=== PATIENT | female | born 1950 | race Two or more races ===

== ENCOUNTER → 2019-12-25 | Outpatient (CLI) | payer BC ==
[2019-12-25 14:48] LABS: Basophils # (auto) 0 uL; Basophils % (auto) 0.3 % (0.0-2.0); Eosinophils # (auto) 0.2 uL; Eosinophils % (auto) 1.4 % (0.0-7.0); Hematocrit 42.4 % (36.0-46.0); Hemoglobin 13.7 g/dL (12.2-16.2); Lymphocytes # (auto) 6.8 uL; Lymphocytes % (auto) 49.4 % (10.0-50.0); Mean Corpuscular Hemoglobin 28.8 pg (28.0-32.0); Mean Corpuscular Hgb Conc. 32.4 g/dL (32.0-36.0); Mean Corpuscular Volume 88.8 fL (80.0-100.0); Monocytes # (auto) 0.8 uL; Neutrophils # (auto) 5.9 uL; Neutrophils % (auto) 42.9 % (37.0-80.0); Nucleated Red Blood Cells % 0.1 %; Platelet Count (auto) 298 10^3/uL (140-450); Red Blood Cells 4.77 10^6/uL (4.0-5.20); White Blood Cell 13.8 10^3/uL (4.4-10.8)
[2019-12-25 15:14] LABS: Albumin 3.4 g/dL (3.4-5.0); Calcium 9.4 mg/dL (8.5-10.1); Potassium 3.6 mmol/L (3.5-5.1)
[2019-12-25 15:19] LABS: BUN/Creatinine Ratio 17.6; Bilirubin, Total 0.4 mg/dL (0.2-1.0); CRP High Sensitivity 0.44 mg/dL (< 0.3); Total Protein 7.6 g/dL (6.4-8.2)
[2019-12-25 15:23] LABS: Free T4 (Free Thyroxine) 1.13 ng/dL (0.89-1.76)
[2019-12-25 15:24] LABS: T3 Total 0.97 ng/mL (0.60-1.81)
== END | disposition home or self-care (01) ==
LOC: LAB 14:32
PROVIDERS: ATTEND Physician Assistant
DX: N92.1 Excessive and frequent menstruation with irregular cycle (principal); I10 Essential (primary) hypertension; E03.9 Hypothyroidism, unspecified; M79.7 Fibromyalgia; R73.9 Hyperglycemia, unspecified; R63.5 Abnormal weight gain
CPT/HCPCS: 36415; 80053; 80061; 84439; 84443; 84480; 85025; 86141; 86431

== ENCOUNTER → 2021-05-14 | Outpatient (CLI) | payer BC ==
[2021-05-14 16:13] LABS: Basophils # (auto) 0.1 10 ^3/uL (0-0.2); Basophils % (auto) 0.7 % (0.0-2.0); Eosinophils # (auto) 0.3 10 ^3/uL (0-0.8); Eosinophils % (auto) 1.6 % (0.0-7.0); Hematocrit 41.6 % (36.0-46.0); Hemoglobin 14.1 g/dL (12.2-16.2); Lymphocytes # (auto) 8.9 10 ^3/uL (0.4-5.4); Lymphocytes % (auto) 52.6 % (10.0-50.0); Mean Corpuscular Hemoglobin 29.7 pg (28.0-32.0); Mean Corpuscular Volume 87.4 fL (80.0-100.0); Monocytes # (auto) 0.6 10 ^3/uL (0-1.3); Monocytes % (auto) 3.8 % (0.0-12.0); Neutrophils % (auto) 41.3 % (37.0-80.0); Platelet Count (auto) 359 10^3/uL (140-450); Red Blood Cells 4.76 10^6/uL (4.0-5.20); Red Cell Distribution Width 14.1 % (11.8-14.3)
[2021-05-14 16:27] LABS: Albumin 3.4 g/dL (3.4-5.0); Calcium 9.6 mg/dL (8.5-10.1); Potassium 3.8 mmol/L (3.5-5.1)
[2021-05-14 16:32] LABS: Bilirubin, Total 0.4 mg/dL (0.2-1.0); Total Protein 7.6 g/dL (6.4-8.2)
[2021-05-14 16:38] LABS: BUN/Creatinine Ratio 15.2
== END | disposition home or self-care (01) ==
LOC: LAB 15:58
PROVIDERS: ATTEND Nurse Practitioner Family
DX: I10 Essential (primary) hypertension (principal); E66.01 Morbid (severe) obesity due to excess calories; E03.9 Hypothyroidism, unspecified
CPT/HCPCS: 36415; 80053; 80061; 84443; 85025; 85049

== ENCOUNTER → 2022-04-13 | Outpatient (CLI) | payer BC ==
[2022-04-13 15:24] LABS: Basophils # (auto) 0.2 10 ^3/uL (0-0.2); Basophils % (auto) 1.5 % (0.0-2.0); Eosinophils # (auto) 0.1 10 ^3/uL (0-0.8); Eosinophils % (auto) 0.8 % (0.0-7.0); Hematocrit 42.2 % (36.0-46.0); Hemoglobin 14.2 g/dL (12.2-16.2); Lymphocytes % (auto) 49.5 % (10.0-50.0); Mean Corpuscular Hemoglobin 29.9 pg (28.0-32.0); Mean Corpuscular Hgb Conc. 33.5 g/dL (32.0-36.0); Monocytes # (auto) 0.8 10 ^3/uL (0-1.3); Neutrophils % (auto) 43.2 % (37.0-80.0); Red Blood Cells 4.74 10^6/uL (4.0-5.20); Red Cell Distribution Width 14.4 % (11.8-14.3); White Blood Cell 16.2 10^3/uL (4.4-10.8)
[2022-04-13 15:38] LABS: Albumin 3.3 g/dL (3.4-5.0); BUN/Creatinine Ratio 14.4; Calcium 9.7 mg/dL (8.5-10.1); Potassium 3.3 mmol/L (3.5-5.1)
[2022-04-13 15:42] LABS: Bilirubin, Total 0.4 mg/dL (0.2-1.0); Total Protein 7.4 g/dL (6.4-8.2)
[2022-04-13 15:59] LABS: Free T3 2.49 pg/mL (2.3-4.2); Free T4 (Free Thyroxine) 1.31 ng/dL (0.89-1.76)
== END | disposition home or self-care (01) ==
LOC: LAB 14:56
PROVIDERS: ATTEND Internal Medicine
DX: I10 Essential (primary) hypertension (principal); E03.9 Hypothyroidism, unspecified
CPT/HCPCS: 36415; 80053; 80061; 84439; 84443; 84481; 85025

== ENCOUNTER → 2022-05-18 | Outpatient (CLI) | payer BC ==
[2022-05-18 16:17] LABS: Calcium 9.3 mg/dL (8.5-10.1)
== END | disposition home or self-care (01) ==
LOC: LAB 15:28
PROVIDERS: ATTEND Nurse Practitioner Family
DX: E87.6 Hypokalemia (principal)
CPT/HCPCS: 36415; 80048

== ENCOUNTER → 2022-05-18 | Outpatient (CLI) | payer BC | END | disposition home or self-care (01) | LOC: XYW 14:33 | PROVIDERS: ATTEND Internal Medicine | DX: I08.2 Rheumatic disorders of both aortic and tricuspid valves (principal); I10 Essential (primary) hypertension | CPT/HCPCS: 93306 ==

== ENCOUNTER → 2022-06-24 | Outpatient (CLI) | payer BC ==
[2022-06-24 09:19] LABS: Basophils # (auto) 0.1 10 ^3/uL (0-0.2); Basophils % (auto) 0.4 % (0.0-2.0); Eosinophils # (auto) 0.2 10 ^3/uL (0-0.8); Eosinophils % (auto) 1.2 % (0.0-7.0); Hematocrit 42.8 % (36.0-46.0); Hemoglobin 13.5 g/dL (12.2-16.2); Lymphocytes # (auto) 8.1 10 ^3/uL (0.4-5.4); Lymphocytes % (auto) 51.7 % (10.0-50.0); Mean Corpuscular Hemoglobin 28.3 pg (28.0-32.0); Mean Corpuscular Hgb Conc. 31.4 g/dL (32.0-36.0); Mean Corpuscular Volume 90.1 fL (80.0-100.0); Monocytes % (auto) 6.1 % (0.0-12.0); Neutrophils # (auto) 6.4 10 ^3/uL (1.6-8.6); Neutrophils % (auto) 40.6 % (37.0-80.0); Nucleated Red Blood Cells % 0.2 %; Red Blood Cells 4.75 10^6/uL (4.0-5.20); Red Cell Distribution Width 13.5 % (11.8-14.3); White Blood Cell 15.7 10^3/uL (4.4-10.8)
== END | disposition home or self-care (01) ==
LOC: LAB 08:54
PROVIDERS: ATTEND Obstetrics & Gynecology
DX: Z12.11 Encounter for screening for malignant neoplasm of colon (principal); N93.9 Abnormal uterine and vaginal bleeding, unspecified
CPT/HCPCS: 36415; 82270; 85025

== ENCOUNTER → 2022-06-25 | Outpatient (CLI) | payer BC | END | disposition home or self-care (01) | LOC: XYW 08:36 | PROVIDERS: ATTEND Internal Medicine | DX: I70.203 Unspecified atherosclerosis of native arteries of extremities, bilateral legs (principal) | CPT/HCPCS: 93925 ==

== ENCOUNTER → 2022-08-13 | Outpatient (CLI) | payer BC ==
[2022-08-13 09:00] LABS: Hematocrit 41.5 % (36.0-46.0); Hemoglobin 13.7 g/dL (12.2-16.2); Mean Corpuscular Hemoglobin 28.9 pg (28.0-32.0); Mean Corpuscular Volume 87.7 fL (80.0-100.0); Red Blood Cells 4.73 10^6/uL (4.0-5.20); Red Cell Distribution Width 13.7 % (11.8-14.3); White Blood Cell 14.1 10^3/uL (4.4-10.8)
[2022-08-13 09:09] LABS: Basophils % (manual) 0 (0.0-2.0); Blast Cells 0; Metamyelocytes % 0; Myelocytes % 0; Promyelocytes % 0; Reactive Lymphocytes 0
[2022-08-13 09:34] LABS: Band Neutrophils % (manual) 2; Eosinophils % (manual) 3 (0-7); Lymphocytes % (manual) 40 (10.0-50.0); Monocytes % (manual) 10 (0-12)
[2022-08-13 09:42] LABS: Albumin 3.2 g/dL (3.4-5.0); Magnesium 2.1 mg/dL (1.6-2.6); Potassium 3.1 mmol/L (3.5-5.1)
[2022-08-13 09:46] LABS: BUN/Creatinine Ratio 14.8; Bilirubin, Total 0.4 mg/dL (0.2-1.0); CRP High Sensitivity 0.4 mg/dL (< 0.3); Total Protein 6.5 g/dL (6.4-8.2)
== END | disposition home or self-care (01) ==
LOC: LAB 08:30
PROVIDERS: ATTEND Internal Medicine
DX: D72.829 Elevated white blood cell count, unspecified (principal)
CPT/HCPCS: 36415; 80053; 82306; 82728; 83540; 83615; 83735; 85007; 85027; 85652; 86038; 86141; 86431

== ENCOUNTER → 2024-01-21 | Outpatient (CLI) | payer BC ==
[2024-01-21 09:53] LABS: Hematocrit 44.7 % (36.0-46.0); Hemoglobin 14.4 g/dL (12.2-16.2); Mean Corpuscular Hemoglobin 28.8 pg (28.0-32.0); Mean Corpuscular Hgb Conc. 32.1 g/dL (32.0-36.0); Mean Corpuscular Volume 89.6 fL (80.0-100.0); Red Blood Cells 4.99 10^6/uL (4.0-5.20); Red Cell Distribution Width 14.2 % (11.8-14.3); White Blood Cell 20.1 10^3/uL (4.4-10.8)
[2024-01-21 09:59] LABS: Basophils % (manual) 0 (0.0-2.0); Blast Cells 0; Eosinophils % (manual) 0 (0-7); Metamyelocytes % 0; Myelocytes % 0; Promyelocytes % 0; Reactive Lymphocytes 0
[2024-01-21 10:43] LABS: Alanine Aminotransferase 19 U/L (7-40); Alkaline Phosphatase 81 U/L (46-116); Anion Gap 5 (5-15); Aspartate Aminotransferase 22 U/L (13-40); BUN/Creatinine Ratio 13.1 (10.0-20.0); Blood Urea Nitrogen 14 mg/dL (9-23); Carbon Dioxide 32 mmol/L (20-30); Chloride 107 mmol/L (98-107); Glucose 120 mg/dL (74-106); Potassium 3.7 mmol/L (3.5-5.1); Sodium 144 mmol/L (136-145); Triglycerides 142 mg/dL (< 150)
[2024-01-21 10:44] LABS: Albumin 4.1 g/dL (3.2-4.8); LDL Cholesterol 94 mg/dL (< 100)
[2024-01-21 10:45] LABS: Bilirubin, Total 0.6 mg/dL (0.2-1.0); Cholesterol 158 mg/dL (< 200); HDL Cholesterol 49 mg/dL (40-59); Total Protein 6.7 g/dL (5.7-8.2)
[2024-01-21 12:12] LABS: Band Neutrophils % (manual) 1; Lymphocytes % (manual) 58 (10.0-50.0); Monocytes % (manual) 6 (0-12); Platelet Estimate Adequate
== END | disposition home or self-care (01) ==
LOC: LAB 09:25
PROVIDERS: ATTEND Nurse Practitioner Family
DX: I10 Essential (primary) hypertension (principal); E66.01 Morbid (severe) obesity due to excess calories; R73.03 Prediabetes
CPT/HCPCS: 36415; 80053; 80061; 82043; 82270; 82306; 83036; 84439; 84443; 85007; 85027

== ENCOUNTER → 2025-01-03 | Outpatient (CLI) | payer BC ==
[2025-01-03 10:10] LABS: Hematocrit 45.7 % (36.0-46.0); Hemoglobin 14.6 g/dL (12.2-16.2); Mean Corpuscular Hemoglobin 28.7 pg (28.0-32.0); Mean Corpuscular Volume 89.5 fL (80.0-100.0); Platelet Count (auto) 263 10^3/uL (140-450); Red Cell Distribution Width 13.7 % (11.8-14.3); White Blood Cell 21.8 10^3/uL (4.4-10.8)
[2025-01-03 10:46] LABS: Alanine Aminotransferase 15 U/L (7-40); Albumin 4.1 g/dL (3.2-4.8); Alkaline Phosphatase 86 U/L (46-116); Anion Gap 10 (5-15); Aspartate Aminotransferase 19 U/L (13-40); BUN/Creatinine Ratio 15.4 (10.0-20.0); Bilirubin, Total 0.6 mg/dL (0.2-1.0); Blood Urea Nitrogen 20 mg/dL (9-23); Carbon Dioxide 28 mmol/L (20-31); Chloride 104 mmol/L (98-107); Cholesterol 180 mg/dL (< 200); Potassium 3.8 mmol/L (3.5-5.1); Sodium 142 mmol/L (136-145); Total Protein 6.7 g/dL (5.7-8.2); Triglycerides 123 mg/dL (< 150)
[2025-01-03 10:59] LABS: Band Neutrophils % (manual) 0; Basophils % (manual) 0 (0.0-2.0); Blast Cells 0; Eosinophils % (manual) 0 (0-7); Metamyelocytes % 0; Myelocytes % 0; Promyelocytes % 0
[2025-01-03 11:00] LABS: Calcium 10.4 mg/dL (8.7-10.4); Glucose 120 mg/dL (74-106); LDL Cholesterol 111 mg/dL (< 100)
[2025-01-03 11:38] LABS: HDL Cholesterol 50 mg/dL (40-59)
[2025-01-03 12:45] LABS: Lymphocytes % (manual) 47 (10.0-50.0); Monocytes % (manual) 3 (0-12); Reactive Lymphocytes 2
[2025-01-03 12:52] LABS: Platelet Estimate Adequate
== END | disposition home or self-care (01) ==
LOC: LAB 09:23
PROVIDERS: ATTEND Nurse Practitioner Family
DX: Z00.01 Encounter for general adult medical examination with abnormal findings (principal); I10 Essential (primary) hypertension; R73.03 Prediabetes; R09.89 Other specified symptoms and signs involving the circulatory and respiratory systems; E66.01 Morbid (severe) obesity due to excess calories
CPT/HCPCS: 36415; 80053; 80061; 82043; 82306; 83036; 83880; 84443; 85007; 85027

== ENCOUNTER → 2025-02-07 | Outpatient (CLI) | payer BC ==
[2025-02-07 12:53] LABS: Anion Gap 11 (5-15); Calcium 10.1 mg/dL (8.7-10.4); Carbon Dioxide 27 mmol/L (20-31); Chloride 102 mmol/L (98-107); Sodium 140 mmol/L (136-145)
[2025-02-07 12:59] LABS: BUN/Creatinine Ratio 16.3 (10.0-20.0)
[2025-02-07 13:02] LABS: Blood Urea Nitrogen 26 mg/dL (9-23); Glucose 113 mg/dL (74-106); Potassium 3.1 mmol/L (3.5-5.1)
== END | disposition home or self-care (01) ==
LOC: LAB 12:00
PROVIDERS: ATTEND Nurse Practitioner Family
DX: Z01.812 Encounter for preprocedural laboratory examination (principal); E78.00 Pure hypercholesterolemia, unspecified
CPT/HCPCS: 36415; 80048

== ENCOUNTER 2025-02-12 13:53 | Inpatient (IN) | payer BC ==
[~2025-02-12] VITALS: Ht 160 cm; Wt 123.0 kg
[~2025-02-12 13:53] MED LIST: ALBU108A5 PO; AMIT-238 PO; FURO20TA4 PO; HYDR25TA5 PO; LEVO112T4 PO; LISI20TA56 PO; POTA-228 PO
--- NOTE | 2025-02-12 14:41 | ED.PDOC ---
History of Present Illness HPI Comments 74 y/o morbidly obese F, with a history of hypertension and thyroid disease, presents with c/o shortness of breath, today. Patient reports ongoing symptom, that worsened within the past 3x days, following initial unprovoked onset 1x month ago. Patient reports urgent care visit for symptom during its early course and completing antibiotic course s/p placement, with no relief or improvement. She also comments on upcoming valve maker appointment for initial contact care appointment on 02/13/25. Patient denies any chest pain, cough, congestion , fever, chills, or other associated symptoms or modifiers at this time. Chief Complaint: Shortness of Breath Time Seen by MD: 14:25 Reviewed Notes: Nurses Notes, Medications, Allergies Allergies: Coded Allergies: NO KNOWN ALLERGIES (Unverified , 02/12/25) Home Meds Active Scripts Levofloxacin Hemihydrate (LEVOFLOXACIN) 750 Mg Tab, 1 TAB PO DAILY for 7 Days, #7 TAB Prov:VALENTE RENE RESIDENT 02/15/25 Reported Medications Hctz (Hydrochlorothiazide) 25 Mg Tab, 1 TAB PO DAILY for 90 Days, #90 02/13/25 Potassium Chloride (Potassium Chloride ER) 10 Meq Tab, 1 TAB PO Q2D for 40 Days, #20 TAKE 1 TABLET BY MOUTH EVERY 2 DAYS WITH FOOD. 02/13/25 Amitriptyline HCl (Amitriptyline Hydrochlori) 25 Mg Tab, 1 TAB PO DAILY for 90 Days, #90 02/13/25 Albuterol Sulfate (Albuterol Sulfate Hfa) 108 Mcg/Act Aer, 2 PUFF PO Q4-6HR PRN for SHORTNESS OF BREATH for 16 Days, #6.7 02/13/25 Furosemide (Furosemide) 20 Mg Tab, 1 TAB PO Q2D for 10 Days, #20 TAKE 1 TABLET BY MOUTH EVERY 2 DAYS. 02/13/25 Levothyroxine Sodium (Levothyroxine Sodium) 112 Mcg Tab, 1 TAB PO DAILY for 90 Days, #90 02/13/25 Lisinopril (Lisinopril) 20 Mg Tab, 1 TAB PO DAILY for 90 Days, #90 02/13/25 Information Source: Patient Mode of Arrival: Ambulatory Severity: Moderate Timing: Months Duration: Since onset Prehospital treatment: Other (see HPI) Past Medical History PAST MEDICAL HISTORY: HTN, Thyroid Past Medical History (Other): morbid obesity Surgical History: Cholecystectomy FOOD AND BEVERAGE COORDINATOR History: Denies all FOOD AND BEVERAGE COORDINATOR Hx Family History Family History: Unknown Social History Smoker: Non-Smoker Alcohol: Denies ETOH Use Drugs: Denies Drug Use Lives In: Home All Other Systems: Reviewed and Negative (Comprehensive systems review obtained and negative except for what is stated in the HPI.) Physical Exam General Appearance: No Apparent Distress, Obese, Other (illappearing ) HEENT: Normal ENT Inspection, Pharynx Normal, TMs Normal Neck: Full Range of Motion, Non-Tender, Normal, Normal Inspection Respiratory: Chest Non-Tender, Lungs Clear, No Accessory Muscle Use, Other (tachypneic, hypoxic ) Cardiovascular: No Edema, No JVD, No Murmur, No Gallop, Normal Peripheral Pulses, Tachycardia, Other (regular rhythm ) Breast Exam: Deferred Gastrointestinal: No Organomegaly, Non Tender, No Pulsatile Mass, Normal Bowel Sounds, Soft Genitalia: Deferred Pelvic: Deferred Rectal: Deferred Extremities: No calf tenderness, Normal capillary refill, Normal inspection, Normal range of motion, Non-tender, No pedal edema Musculoskeletal : Apperance: Normal Neurologic: Alert, insulation technician II-XII nml as Tested, No Motor Deficits, Normal Affect, Normal Mood, No Sensory Deficits Cerebellar Function: Normal Reflexes: Normal Skin: Dry, Normal Color, Warm Lymphatic: No Adenopathy Was a procedure done? Was a procedure done?: No Differential Dx Considerations may include: URI, PNA, viral syndrome, DC, PE, among others X-Ray, Labs, Meds, VS Vital Signs Date Time Temp Pulse Resp B/P (MAP) Pulse Ox O2 Delivery O2 Flow Rate FiO2 02/12/25 19:07 76 14 135/58 (83) 96 02/12/25 17:51 73 02/12/25 17:01 77 27 118/54 (75) 96 02/12/25 15:02 76 27 94 Nasal Cannula* 5 40 02/12/25 15:01 97.7 76 27 128/53 (78) 94 97.7 02/12/25 14:26 97.4 77 20 128/53 (78) 84 97.4 Lab Test 02/12/25 17:49 02/12/25 17:29 02/12/25 16:42 02/12/25 15:29 Range/Units Lactate Dehydrogenase 311 H 120-246 U/L Troponin I High Sensitivity 29 25 </=34 ng/L Thyroid Stimulating Hormone (TSH) 1.65 0.55-4.78 uIU/mL Urine Color Yellow Yellow Urine Clarity Clear Clear Urine pH 5.5 5.0-9.0 Urine Specific [place] 1.018 1.001-1.035 Urine Protein Negative Negative Urine Ketones Negative Negative Urine Blood Negative Negative /uL Urine Nitrite Negative Negative Urine Bilirubin Negative Negative Urine Urobilinogen Normal Negative mg/dL Urine Leukocyte Esterase Negative Negative /uL Urine RBC 2 0 - 4 /hpf Urine Microscopic WBC 3 0-5 /HPF Urine Squamous Epithelial Cells Few <5 /hpf Urine Bacteria None seen None Seen /hpf Urine Hyaline Casts Few 0 - 2 /lpf Urine Glucose Normal Normal mg/dL Lactic Acid Level 1.7 0.4-2.0 mmol/L Test 02/12/25 14:41 Range/Units White Blood Count 19.1 H 4.4-10.8 10^3/uL Red Blood Count 5.01 4.0-5.20 10^6/uL Hemoglobin 14.5 12.2-16.2 g/dL Hematocrit 45.2 36.0-46.0 % Mean Corpuscular Volume 90.4 80.0-100.0 fL Mean Corpuscular Hemoglobin 29.0 28.0-32.0 pg Mean Corpuscular Hemoglobin Concent 32.1 32.0-36.0 g/dL Red Cell Distribution Width 14.5 H 11.8-14.3 % Platelet Count 295 140-450 10^3/uL Mean Platelet Volume 8.2 6.9-10.8 fL Neutrophils (%) (Auto) 37.0-80.0 % Lymphocytes (%) (Auto) 10.0-50.0 % Monocytes (%) (Auto) 0.0-12.0 % Basophils (%) (Auto) 0.0-2.0 % Neutrophils # (Auto) 1.6-8.6 10 ^3/uL Lymphocytes # (Auto) 0.4-5.4 10 ^3/uL Monocytes # (Auto) 0-1.3 10 ^3/uL Differential Total Cells Counted 100.0 100 Neutrophils % (Manual) 39 37.0-80.0 Band Neutrophils % (Manual) 1 Lymphocytes % (Manual) 52 H 10.0-50.0 Monocytes % (Manual) 4 0-12 Eosinophils % (Manual) 0 0-7 Basophils % (Manual) 0 0.0-2.0 Metamyelocytes % (manual) 0 Myelocytes % (Manual) 0 Promyelocytes % (Manual) 0 Blast Cells % (Manual) 0 Reactive Lymphocytes 4 Platelet Estimate Adequate Anisocytosis (manual) Slight Sodium Level 143 136-145 mmol/L Potassium Level 3.6 3.5-5.1 mmol/L Chloride Level 105 98-107 mmol/L Carbon Dioxide Level 29 20-31 mmol/L Anion Gap 9 5-15 Blood Urea Nitrogen 36 H 9-23 mg/dL Creatinine 1.60 H 0.550-1.02 mg/dL Glomerular Filtration Rate Calc 33 >90 mL/min BUN/Creatinine Ratio 22.5 H 10.0-20.0 Serum Glucose 180 H 74-106 mg/dL Lactic Acid Level 3.0 *H 0.4-2.0 mmol/L Calcium Level 10.2 8.7-10.4 mg/dL Total Bilirubin 0.6 0.2-1.0 mg/dL Aspartate Amino Transferase (AST) 28 13-40 U/L Alanine Aminotransferase (ALT) 17 7-40 U/L Alkaline Phosphatase 86 46-116 U/L Troponin I High Sensitivity 26 </=34 ng/L Total Protein 6.8 5.7-8.2 g/dL Albumin 4.1 3.2-4.8 g/dL Microbiology Date/Time Source Procedure Growth Status 02/12/25 14:41 Blood Blood Culture - Final NO GROWTH AFTER 5 DAYS OF INCUBATION. Complete 02/12/25 14:30 Blood Blood Culture - Final NO GROWTH AFTER 5 DAYS OF INCUBATION. Complete Time of 1ST Reevaluation: 14:55 Reevaluation 1ST: Unchanged Patient Education/Counseling: Diagnosis, Treatment Family Education/Counseling: No Family Present Additional Information Previous medical encounters reviewed: n/a The following tests were ordered, and results were reviewed by me: CXR, troponin, blood culture, UA, lactic acid w/reflex, CMP, CBC Additional Information was gathered from interviewing the following independent historians: n/a I reviewed and agreed with the following test results read by other providers: CXR I discussed treatment and results with medical personnel and: Patient Departure 1 Departure Time of Disposition: 04:51 (Patient with a acute on chronic respiratory failure . Patient will be admitted for further workup and expert consultation) Impression: Primary Impression: Acute and chronic respiratory failure Additional Impressions: Pleural effusion, right Shortness of breath Disposition: ADMITTED INPATIENT Admit to: Med Surg Condition: Serious e-Prescriptions Levofloxacin Hemihydrate (LEVOFLOXACIN) 750 Mg Tab 1 TAB PO DAILY for 7 Days, #7 TAB Prov: VALENTE RENE RESIDENT 02/15/25 Critical Care Note Critical Care Time?: Yes Critical care comment: Acute on chronic respiratory failure Authorized and Performed by: Kaycee Humphries MD Total critical care time: Approximately 38 minutes Due to a high probability of clinically significant, life threatening deterioration, the patient required my highest level of preparedness to intervene emergently and I personally spent this critical care time directly and personally managing the patient. This critical care time included obtaining a history; examining the patient; pulse oximetry; ordering and review of studies; arranging urgent treatment with development of a management plan; evaluation of patient's response to treatment; frequent reassessment; and, discussions with other providers. This critical care time was performed to assess and manage the high probability of imminent, life-threatening deterioration that could result in multi-organ failure. It was exclusive of separately billable procedures and treating other patients and teaching time. Please see my other sections and the rest of the note for further information on patient assessment and treatment. Stability Stability form required: No Heart Score Heart Score: Heart Score Response (Comments) Value History Moderate Suspicious 1 EKG Normal 0 Age >65 2 Risk Factors >3 or Hx ASHD 2 Troponin Normal limit 0 Total 5 I personally scribed for KACYEE HUMPHRIES MD ([email or web address]) on 02/12/25 at 14:41. Electronically submitted by Donn Rowe ([email or web address]). KAYCEE HUMPHRIES MD Feb 12, 2025 14:41
[2025-02-12 15:02] VITALS: PULSE 76; RESP 27; O2SAT 94
[2025-02-12 15:08] LABS: Hematocrit 45.2 % (36.0-46.0); Hemoglobin 14.5 g/dL (12.2-16.2); Mean Corpuscular Hgb Conc. 32.1 g/dL (32.0-36.0); Mean Corpuscular Volume 90.4 fL (80.0-100.0); Platelet Count (auto) 295 10^3/uL (140-450); Red Blood Cells 5.01 10^6/uL (4.0-5.20); Red Cell Distribution Width 14.5 % (11.8-14.3); White Blood Cell 19.1 10^3/uL (4.4-10.8)
--- NOTE | 2025-02-12 15:12 | DVH ---
EXAM: XY CHEST PORTABLE TECHNIQUE: Single frontal chest radiograph CLINICAL HISTORY: sob COMPARISON: None Findings/Impression: Frontal chest radiograph demonstrates no acute osseous or superficial soft tissue abnormalities. The trachea is midline. The cardiac silhouette and mediastinum are within normal limits. Large right pleural effusion with compressive atelectasis. A superimposed infectious process is not e xcluded. No pneumothorax.
[2025-02-12 15:13] LABS: Basophils % (manual) 0 (0.0-2.0); Blast Cells 0; Eosinophils % (manual) 0 (0-7); Metamyelocytes % 0; Myelocytes % 0; Promyelocytes % 0
[2025-02-12 15:17] LABS: Alanine Aminotransferase 17 U/L (7-40); Albumin 4.1 g/dL (3.2-4.8); Alkaline Phosphatase 86 U/L (46-116); Anion Gap 9 (5-15); Aspartate Aminotransferase 28 U/L (13-40); BUN/Creatinine Ratio 22.5 (10.0-20.0); Bilirubin, Total 0.6 mg/dL (0.2-1.0); Blood Urea Nitrogen 36 mg/dL (9-23); Calcium 10.2 mg/dL (8.7-10.4); Carbon Dioxide 29 mmol/L (20-31); Chloride 105 mmol/L (98-107); Glucose 180 mg/dL (74-106); Potassium 3.6 mmol/L (3.5-5.1); Sodium 143 mmol/L (136-145); Total Protein 6.8 g/dL (5.7-8.2)
[2025-02-12 15:45] LABS: Band Neutrophils % (manual) 1; Lymphocytes % (manual) 52 (10.0-50.0); Monocytes % (manual) 4 (0-12)
[2025-02-12 15:46] LABS: Anisocytosis Slight; Platelet Estimate Adequate; Reactive Lymphocytes 4
[2025-02-12 18:44] LABS: Urine Bacteria None Seen /hpf (None Seen); Urine Blood Negative /uL (Negative); Urine Clarity Clear (Clear); Urine Color Yellow (Yellow); Urine Hyaline Cast FEW /lpf (0 - 2); Urine Protein, UAD Negative (Negative); Urine Specific Gravity 1.018 (1.001-1.035); Urine Squamous Epithelial Cell FEW /hpf (<5); Urine Urobilinogen Normal (Negative); Urine WBC 3 /HPF (0-5); Urine pH 5.5 (5.0-9.0)
[2025-02-12] MEDS ORDERED: DOCUSATE SOD 100 MG CAP PO PRN (19:45)
[2025-02-12] MEDS ORDERED: ONDANSETRON HCL 4 MG/2 ML VIAL IV PRN (19:45)
[2025-02-12] MEDS ORDERED: VANCOMYCIN PER PHARMACY 0 MG IV SCH (19:45)
[2025-02-12] MEDS ORDERED: MORPHINE SULFATE INJ 2 MG/ml SYRG IV PRN (19:45)
[2025-02-12] MEDS ORDERED: CEFEPIME 2GM/50ML 50 ML IV ONE (19:45)
[2025-02-12] MEDS ORDERED: NITROGLYCERIN 0.4 MG SL TAB SL PRN (19:45)
[2025-02-12 19:50] VITALS: O2SAT 92
--- NOTE | 2025-02-12 20:03 | DVHHP2 ---
History of Present Illness Reason for Visit: Shortness of the breath History of Present Illness 74-year-old female past medical history CKD stage 3 hypertension hypothyroidism depression morbid obesity gallbladder surgery chief complaint patient states that she has been short of breath for the last month. And she states despite this she has not gotten any better she states her primary doctor did multiple testing like echocardiogram CT scan of the chest x-ray blood work she states she done in all but finally tomorrow she has a appointment with a potato bucker to find out about the fluid in her lungs. But she states that her symptoms got so bad that she had to come to the ER for evaluation. She states she was told she had questionable polyp in the right lung but she has never been diagnosed with cancer she does not use home O2 at home. Patient states that her primary doctor DC hydrochlorothiazide and put her on Lasix when she has been taking it but desp ite this she has not gotten any better. When evaluating patient's labs and imaging x-ray shows right lung with large pleural effusion white count was 19.1 creatinine was 1.60 glucose was 180 lactate was 3.0 troponin was negative x2 patient also had an echocardiogram completed January 10, 2025 EF was 65%. With these findings we will admit and ask for radiology do due thoracentesis also send fluid for evaluation Past Medical History See HPI above Past Surgical History See HPI above Family History Reviewed, non-contributory to the management of this case. Past Social History Patient no longer smokes having smoked since 1994 but denies drinking or drug use Review of Systems Constitutional: No: Fever, Chills, Sweats, Weakness, Malaise, Other Eyes: No: Pain, Vision change, Conjunctivae inflammation, Eyelid inflammation, Other, Redness ENT: No: Ear pain, Ear discharge, Nose pain, Nose discharge, Nose congestion, Mouth pain, Mouth swelling, Throat pain, Throat swelling, Other Respiratory: Shortness of breath, SOB with excertion; No: Cough, Dry, Wheezing, Hemoptysis, Pleuritic Pain, Sputum, Wheezing, Other Cardiovascular: Edema; No: Chest Pain, Palpitations, Orthopnea, Paroxysmal Noc. Dyspnea, Lt Headedness, Other Gastrointestinal: No: Nausea, Vomiting, Abdominal Pain, Diarrhea, Constipation, Melena, Hematochezia, Other Genitourinary: No Dysuria, No Frequency, No Incontinence, No Hematuria, No Retention, No Other Musculoskeletal: No: other, neck pain, shoulder pain, arm pain, back pain, hand pain, leg pain, foot pain Skin: No: Rash, Lesions, Jaundice, Bruising, Other Neurological: No: Weakness, Numbness, Incoordination, Change in speech, Confusion, Seizures, Other Allergies: Coded Allergies: NO KNOWN ALLERGIES (Unverified , 02/12/25) Exam Vital Signs Vital Signs Date Time Temp Pulse Resp B/P (MAP) Pulse Ox O2 Delivery O2 Flow Rate FiO2 02/12/25 19:07 76 14 135/58 (83) 96 02/12/25 15:02 Nasal Cannula* 5 40 02/12/25 15:01 97.7 97.7 General Appearance: Alert, Oriented X3, Cooperative, mild distress HEENT: Atraumatic, PERRLA, EOMI, Mucous membr. moist/pink Respiratory: Other (Diminished lung sounds to right lung) Cardiovascular: Regular rate, Normal S1, Normal S2, No murmurs Abdominal: Normal bowel sounds, Soft, No tenderness, No hepatospenomegaly, No masses Extremities: No clubbing, No cyanosis, No edema, Normal pulses, Other (Bi lateral lower extremity edema) Skin: No rashes, No breakdown, No significant lesion Neuro: Other (Neuro nonfocal) Psych/Mental Status: Mental status NL, Mood NL Labs/Xrays X-ray shows of the chest right large pleural effusion I reviewed labs, imaging CT scan abdomen pelvis, EKG and all diagnostic studies on this patient from ED records and the medical chart Labs Test 02/12/25 17:49 02/12/25 17:29 02/12/25 16:42 02/12/25 14:41 Range/Units Troponin I High Sensitivity 29 </=34 ng/L Urine Color Yellow Yellow Urine Clarity Clear Clear Urine pH 5.5 5.0-9.0 Urine Specific [place] 1.018 1.001-1.035 Urine Protein Negative Negative Urine Ketones Negative Negative Urine Blood Negative Negative /uL Urine Nitrite Negative Negative Urine Bilirubin Negative Negative Urine Urobilinogen Normal Negative mg/dL Urine Leukocyte Esterase Negative Negative /uL Urine RBC 2 0 - 4 /hpf Urine Microscopic WBC 3 0-5 /HPF Urine Squamous Epithelial Cells Few <5 /hpf Urine Bacteria None seen None Seen /hpf Urine Hyaline Casts Few 0 - 2 /lpf Urine Glucose Normal Normal mg/dL Lactic Acid Level 1.7 0.4-2.0 mmol/L White Blood Count 19.1 H 4.4-10.8 10^3/uL Red Blood Count 5.01 4.0-5.20 10^6/uL Hemoglobin 14.5 12.2-16.2 g/dL Hematocrit 45.2 36.0-46.0 % Mean Corpuscular Volume 90.4 80.0-100.0 fL Mean Corpuscular Hemoglobin 29.0 28.0-32.0 pg Mean Corpuscular Hemoglobin Concent 32.1 32.0-36.0 g/dL Red Cell Distribution Width 14.5 H 11.8-14.3 % Platelet Count 295 140-450 10^3/uL Mean Platelet Volume 8.2 6.9-10.8 fL Neutrophils (%) (Auto) 37.0-80.0 % Lymphocytes (%) (Auto) 10.0-50.0 % Monocytes (%) (Auto) 0.0-12.0 % Basophils (%) (Auto) 0.0-2.0 % Neutrophils # (Auto) 1.6-8.6 10 ^3/uL Lymphocytes # (Auto) 0.4-5.4 10 ^3/uL Monocytes # (Auto) 0-1.3 10 ^3/uL Differential Total Cells Counted 100.0 100 Neutrophils % (Manual) 39 37.0-80.0 Band Neutrophils % (Manual) 1 Lymphocytes % (Manual) 52 H 10.0-50.0 Monocytes % (Manual) 4 0-12 Eosinophils % (Manual) 0 0-7 Basophils % (Manual) 0 0.0-2.0 Metamyelocytes % (manual) 0 Myelocytes % (Manual) 0 Promyelocytes % (Manual) 0 Blast Cells % (Manual) 0 Reactive Lymphocytes 4 Platelet Estimate Adequate Anisocytosis (manual) Slight Sodium Level 143 136-145 mmol/L Potassium Level 3.6 3.5-5.1 mmol/L Chloride Level 105 98-107 mmol/L Carbon Dioxide Level 29 20-31 mmol/L Anion Gap 9 5-15 Blood Urea Nitrogen 36 H 9-23 mg/dL Creatinine 1.60 H 0.550-1.02 mg/dL Glomerular Filtration Rate Calc 33 >90 mL/min BUN/Creatinine Ratio 22.5 H 10.0-20.0 Serum Glucose 180 H 74-106 mg/dL Calcium Level 10.2 8.7-10.4 mg/dL Total Bilirubin 0.6 0.2-1.0 mg/dL Aspartate Amino Transferase (AST) 28 13-40 U/L Alanine Aminotransferase (ALT) 17 7-40 U/L Alkaline Phosphatase 86 46-116 U/L Total Protein 6.8 5.7-8.2 g/dL Albumin 4.1 3.2-4.8 g/dL Assessment/Plan Assessment/Plan acute hypoxic resp failure cxr found right pleural effusion ordered IR for thoracentesis ordered pleural fluid for evaluation ordered o2 to keep sats >92% ordered lasix for now can consider cards consult to be determined by rounding team acute sepsis likely from pna and hypoxia ordered antibiotics vanco and cefepime o2 to keep sats >92% follow up lactic for now acute right large pleural effusion found on cxr ordered lasix for now ordered ir for thoracentesis acute bacterial pneumonia found on cxr ordered vanco and cefepime for now ordered blood culture fu results acute leukocytosis likely from pleural effusion and infection ordered vanco and cefepime for now acute on chronic amber can be more elevated in setting for fluid overload ordered lasix for now monitor crea if uptrend consider renal consult acute elevation in blood glucose without dx of dm ordered accucheck qc hs with sliding can order hemoglobin a1c in am acute lactic acidosis likely from infection ordered antibiotics for now fu lactic acute ble edema ordered us eval for dvt ordered lasix current echo completed on 01/10/25 ef 65% chronic problems ckd stage 3 htn hypothyroidism depression morbid obesity fen/ppx diet hl scd hold blood thinner until thoracentesis completed no gi ppx since no hx of gerd or gi bleed plan admit to tele Plan discussed with: Patient My Orders Orders - BETSY BLOOD DNP Procedure Category Date Status Time Admit ADMIT 02/12/25 Verified 19:40 Allergies JUAN J 02/12/25 Verified 19:40 Code Status CODE 02/12/25 Verified 19:40 Ondansetron Hcl PHA 02/12/25 Verified (Zofran) 19:45 Docusate Sodium PHA 02/12/25 Verified Capsule (Colace 19:45 Complete Blood Count LAB 02/13/25 Verified 04:00 Comprehensive LAB 02/13/25 Verified Metabolic Panel 04:00 Cardiac DIET 02/13/25 Verified Diet-2gna,Lofat,Lochol Breakfast Condition: Stable [facility] 02/12/25 Verified 19:40 BRP [facility] 02/12/25 Verified 19:40 Morphine Sulfate PHA 02/12/25 Verified Injection 19:45 Sequential [facility] 02/12/25 Verified Compression Device Nitroglycerin [facility] 02/12/25 Verified Sublingual (Ntrostat 19:45 Stat Ekg For Chest [facility] 02/12/25 Verified Pain 19:40 Notify Md Of Changes [facility] 02/12/25 Verified From Base 19:40 Onsite Health Coach For [facility] 02/12/25 Verified 24 Hours 19:40 Emergency Dysrhythmia [facility] 02/12/25 Verified Protocol 19:40 Rhythm Strips Once [facility] 02/12/25 Verified Every Shift 19:40 Oxygen By Nasal RT 02/12/25 Verified Cannula 19:40 Vancomycin Per [facility] 02/12/25 Verified Pharmacy 19:45 Cefepime 2gm/50ml () [facility] 02/12/25 Verified 22:00 Cefepime 2gm/50ml () [facility] 02/12/25 Verified 19:45 White Blood Cell Count LAB 02/12/25 Verified 19:40 Lactate Dehydrogenase LAB 02/12/25 Verified 19:40 Protein, Body Fluid LAB 02/12/25 Verified 19:40 Glucose Body Fluid LAB 02/12/25 Verified 19:40 Afb Cult/Smear Broth JACKIE 02/13/25 Verified Suscep 05:00 Afb Cult/Smear Broth JACKIE 02/14/25 Verified Suscep 05:00 Afb Cult/Smear Broth JACKIE 02/15/25 Verified Suscep 05:00 Body Fluid Ph LAB 02/12/25 Verified 19:40 Gram Stain JACKIE 02/12/25 Verified 19:40 Body Fluids, Diff. LAB 02/12/25 Verified Cell Count 19:40 Manual Differential LAB 02/12/25 Verified 19:40 Routine Bacterial JACKIE 02/12/25 Verified Culture 19:40 [place] [facility] 02/12/25 Verified 19:40 Thyroid Stimulating LAB 02/12/25 Verified Hormone 19:40 Furosemide Injection PHA 02/12/25 Verified (Lasix Injection) 19:45 Furosemide Injection PHA 02/13/25 Verified (Lasix Injection) 06:00 Date of Service: Feb 12, 2025 Billing Provider: BETSY BLOOD DNP Common Visit Codes: [id number] INP/OBS CARE (HIGH), [id number] CARE 30- 74 MIN (Total critical care time: Approximately 45 minutes This critical care time included obtaining a history; examining the patient; pulse oximetry; ordering and review of studies; arranging urgent treatment with development of a management plan; evaluation of patient's response to treatment; frequent reassessment; and, discussions with other providers.) BETSY BLOOD DNP Feb 12, 2025 20:03
[2025-02-12] MEDS: CEFEPIME 2GM/50ML 50 ML IV ONE (20:15)
[2025-02-12] MEDS: VANCOMYCIN 1GM/200ML PM 250 ML IV ONE (20:15)
--- NOTE | 2025-02-12 20:44 | DVH ---
Exam: US CHEST ULTRASOUND Clinical History: EVAL FOR PLEURAL EFFUSION Comparison: None Technique: Targeted sonographic evaluation of the right chest was performed utilizing grayscale and color Dopple r imaging. Findings/Impression: There is moderate-sized right-sided pleural effusion.
--- NOTE | 2025-02-12 20:49 | DVH ---
Bilateral lower extremity venous duplex Clinical History: eval for dvt Comparison: None Technique: Duplex Doppler evaluation of the deep venous systems of both lower extremities from the common femora l veins to the popliteal veins including color Doppler and spectral/pulsed waveform analysis was perf ormed. Findings: RIGHT SIDE: The common femoral vein demonstrates appropriate compressibility and waveform variability. There is compressibility/patency of the great saphenous vein at the proximal thigh. The femoral vein demonstrates appropriate compressibility and waveform variability. The deep femoral vein demonstrates appropriate compressibility and waveform variability. The popliteal vein demonstrates appropriate compressibility and waveform variability. There is normal compressibility at the tibioperoneal trunk. LEFT SIDE: The common femoral vein demonstrates appropriate compressibility and waveform variability. There is compressibility/patency of the great saphenous vein at the proximal thigh. The femoral vein demonstrates appropriate compressibility and waveform variability. The deep femoral vein demonstrates appropriate compressibility and waveform variability. The popliteal vein demonstrates appropriate compressibility and waveform variability. There is normal compressibility at the tibioperoneal trunk. Impression: No evidence of right or left femoropopliteal venous thrombosis.
[2025-02-12 21:21] LABS: Basophils % (manual) 0 (0.0-2.0); Blast Cells 0; Metamyelocytes % 0; Myelocytes % 0; Promyelocytes % 0
[2025-02-12 21:26] LABS: Nucleated Red Blood Cells % 0.1 %; Platelet Count (auto) 322 10^3/uL (140-450)
[2025-02-12] MEDS: FUROSEMIDE 40 MG/4 ML VIAL IV ONE (21:32)
[2025-02-12 22:59] VITALS: BP 125/40; PULSE 76; RESP 20; TEMP 97.8; O2SAT 92
[2025-02-12 23:18] LABS: Band Neutrophils % (manual) 1; Eosinophils % (manual) 1 (0-7); Lymphocytes % (manual) 27 (10.0-50.0); Monocytes % (manual) 6 (0-12); Reactive Lymphocytes 28; White Blood Cell 24.3 10^3/uL (4.4-10.8)
[2025-02-12 23:19] LABS: Large Platelets FEW; Platelet Estimate Adequate
[2025-02-13] VITALS (9 sets, daily range): BP systolic 96–129; BP diastolic 43–72; PULSE 75–87; RESP 17–20; TEMP 97.6–98.1; O2SAT 93–97
[2025-02-13] MEDS ORDERED: POTA-215 PO (00:23)
[2025-02-13] MEDS: FUROSEMIDE 40 MG/4 ML VIAL IV SCH (05:20)
[2025-02-13 07:48] LABS: Hematocrit 44.2 % (36.0-46.0); Hemoglobin 14.4 g/dL (12.2-16.2); Mean Corpuscular Hemoglobin 29.2 pg (28.0-32.0); Mean Corpuscular Hgb Conc. 32.6 g/dL (32.0-36.0); Mean Corpuscular Volume 89.6 fL (80.0-100.0); Platelet Count (auto) 287 10^3/uL (140-450); Red Blood Cells 4.93 10^6/uL (4.0-5.20); Red Cell Distribution Width 14.2 % (11.8-14.3); White Blood Cell 24.3 10^3/uL (4.4-10.8)
[2025-02-13 07:52] LABS: Alanine Aminotransferase 21 U/L (7-40); Alkaline Phosphatase 87 U/L (46-116); Anion Gap 9 (5-15); BUN/Creatinine Ratio 26.4 (10.0-20.0); Calcium 9.9 mg/dL (8.7-10.4); Chloride 103 mmol/L (98-107); Potassium 3.6 mmol/L (3.5-5.1); Sodium 143 mmol/L (136-145)
[2025-02-13 07:53] LABS: Albumin 3.7 g/dL (3.2-4.8); Aspartate Aminotransferase 39 U/L (13-40); Bilirubin, Total 0.5 mg/dL (0.2-1.0); Blood Urea Nitrogen 39 mg/dL (9-23); Carbon Dioxide 31 mmol/L (20-31); Glucose 124 mg/dL (74-106)
[2025-02-13 08:04] LABS: Basophils % (manual) 0 (0.0-2.0); Blast Cells 0; Eosinophils % (manual) 0 (0-7); Metamyelocytes % 0; Myelocytes % 0; Promyelocytes % 0; Reactive Lymphocytes 0
[2025-02-13] MEDS: CEFEPIME 2GM/50ML 50 ML IV SCH (08:20)
[2025-02-13 08:58] LABS: Band Neutrophils % (manual) 1; Lymphocytes % (manual) 53 (10.0-50.0); Monocytes % (manual) 3 (0-12); Platelet Estimate Adequate
[2025-02-13] MEDS ORDERED: VANCOMYCIN 1GM/200ML PM 250 ML IV ONE (10:30)
--- NOTE | 2025-02-13 10:45 | DVHPNRES ---
Progress Note Date Seen: Feb 13, 2025 Resident Creating Document: VALENTE RENE RESIDENT Medical Necessity Reason Pt with a Central, PICC or Fol: No Subjective Review of Systems This is a 74-year-old female past medical history of hypertension, CKD stage 3, hypothyroidism, depression, morbid obesity presented to the ED with a chief complaint of progressing progressive shortness of breath for last 1 month prior to this admission. patient stated that since mid December she developed shortness of breath with occasional cough, sputum, previously went to the urgent care and treated for pneumonia but her symptoms never get relieved getting worse that prompted this visit. Patient was seen and examined on the bedside. He is alert, oriented x3 and on 6 L oxygen with saturation 97%. CT scan of the chest demonstrated innumerable bilateral mostly subcentimeter pulmonary nodules suspicious for metastatic disease. Largest in the right middle lobe measuring 1.1 cm and moderate right pleural effusion. Patient underwent right thoracentesis with 1.5 L removed by IR and the fluid sent for the study. Constitutional: No: Fever, Chills, Sweats, Weakness, Malaise, Other Eyes: No: Pain, Vision change, Conjunctivae inflammation, Eyelid inflammation, Other, Redness ENT: No: Ear pain, Ear discharge, Nose pain, Nose discharge, Nose congestion, Mouth pain, Mouth swelling, Throat pain, Throat swelling, Other Respiratory: Shortness of breath, No: Cough, Dry,Wheezing, Hemoptysis, Pleuritic Pain, Sputum, Wheezing, Other Cardiovascular: No: Chest Pain, Palpitations, Orthopnea, Paroxysmal Noc. Dyspnea, Edema, Lt Headedness, Other Gastrointestinal: No: Nausea, Vomiting, Abdominal Pain, Diarrhea, Constipation, Melena, Hematochezia, Other Musculoskeletal: No: other, neck pain, shoulder pain, arm pain, back pain, hand pain, leg pain, foot pain Neurological:; No: Weakness, Numbness, Incoordination, Change in speech, Confusion, Seizures Objective vital signs Vital Sign Date Time Temp Pulse Resp B/P (MAP) Pulse Ox O2 Delivery O2 Flow Rate FiO2 02/13/25 09:00 97.6 80 17 129/49 (75) 97 97.6 02/12/25 22:59 Nasal Cannula* 6 44 Total Intake and Output 02/12/25 02/12/25 02/13/25 15:00 23:00 07:00 Intake Total 250 ml Balance 250 ml medications Current Medications Medications Dose Ordered Sig/Ruby Route Start Time Stop Time Status Last Admin Dose Admin Ondansetron HCl 4 mg Q4HP PRN IV 02/12/25 19:45 Docusate Sodium 100 mg BIDPRN PRN PO 02/12/25 19:45 Morphine Sulfate 2 mg Q4HPRN PRN IV 02/12/25 19:45 Nitroglycerin 0.4 mg Q5MINP PRN SL 02/12/25 19:45 Vancomycin HCl 0 ml @ 0 mls/hr UD IV 02/12/25 19:45 Cefepime/Dextrose 50 ml @ 12.5 mls/hr Q12H IV 02/13/25 08:00 02/13/25 08:20 12.5 MLS/HR Levothyroxine Sodium 112 mcg QAM PO 02/13/25 10:00 Lisinopril 20 mg DAILY PO 02/13/25 10:00 Furosemide 20 mg DAILY IV 02/14/25 10:00 Examination Physical examination: General Appearance: Alert, Oriented X3, Cooperative, mild distress and on 6L oxygen. HEENT: Atraumatic, PERRLA, EOMI, Mucous membrane moist/pink Respiratory: Decreased breath sound on the rt side. Cardiovascular: Regular rate, Normal S1, Normal S2, No murmurs, no chest wall tenderness Abdominal: Normal bowel sounds, Soft, No tenderness, No hepatospenomegaly, No masses Extremities: No clubbing, No cyanosis, No edema, Normal pulses, No tenderness/swelling Skin: No rashes, No breakdown, No significant lesion Neuro: Normal gait, Normal speech, Strength at 5/5 X4 ext, Normal tone, Sensation intact, Cranial nerves 3-12 NL, Reflexes 2+ Psych/Mental Status: Mental status NL, Mood NL laboratory and microbiology Laboratory Tests 02/13/25 07:01 Test 02/13/25 07:01 Range/Units Serum Glucose 124 H 74-106 mg/dL Labs and/or images reviewed: Labs reviewed by me, Image(s) reviewed by me Problem List/Assessment/Plan Problem List/Assessment/Plan Assessment and plan: # Right sided moderate pleural effusion # Bilateral pulmonary nodule, rule out malignancy # Possible Gram-positive/Gram-negative pneumonia with parapneumonic effusion # Leukocytosis predominantly lymphocytes likely due to malignancy # Sepsis/ SIRS likely due to above - High resolution CT scan of the chest demonstrated innumerable bilateral mostly subcentimeter pulmonary nodules suspicious for metastatic disease. Largest in the right middle lobe measuring 1.1 cm and moderate right pleural effusion. - Patient underwent right thoracentesis with 1.5 L removed by IR and the fluid sent for the study. - IV Zosyn 3.37 mg Q 8 hours - IV doxycycline 100 mg b.i.d. - Consulted pulmonology # DANIEL on CKD likely due to hemodynamically mediated /VMN - Monitor BMP # hypertensive heart disease with possible chronic diastolic heart failure - lisinopril 20 mg p.o. daily # Chronic hypothyroidism - Levothyroxine 112 mcg at q.a.m. # prophylaxis - Pepcid 20 mg p.o. daily # DVT prophylaxis - Lovenox 40 mg sc daily Goal of care discussed with the patient for more than 20 minutes full code Plan discussed with Dr. Alfaro Plan discussed with: Patient, Other My Orders My Orders Orders - VALENTE RENE Procedure Category Date Status Time B-Type Natriuretic LAB 02/13/25 In Process Peptide 09:51 Covid19 Antigen Mamie LAB 02/13/25 Logged Rapid Influenza A&B LAB 02/13/25 Logged 09:53 Mrsa Screen JACKIE 02/13/25 Uncollected 09:53 Levothyroxine Tablet PHA 02/13/25 In Process (Synthroid Tablet) 10:00 Lisinopril Tablet PHA 02/13/25 In Process (Zestril Tablet) 10:00 Furosemide Injection PHA 02/14/25 In Process (Lasix Injection) 10:00 Date of Service: Feb 13, 2025 Billing Provider: ANAND BRAMBILA MD Common Visit Codes: [id number] INP/OBS CARE(HIGH) VALENTE RENE RESIDENT Feb 13, 2025 10:45 ANAND BRAMBILA MD Feb 18, 2025 15:07
--- NOTE | 2025-02-13 11:12 | DVH ---
XY CHEST PORTABLE, HISTORY: POST THORACENTESIS COMPARISON: XY CHEST PORTABLE on DOS: 02/12/25 XY CHEST PORTABLE on DOS: 02/12/25 TECHNICAL DATA: 1 view of the chest was obtained. FINDINGS: Lines and tubes: None Cardiomediastinal silhouette: normal Pulmonary vasculature: normal Lung expansion: normal Lung airspace: normal Lung interstitium: normal Pleura: normal Pneumothorax: no Bones: Unremarkable Other: no IMPRESSION: No pneumothorax is seen after thoracentesis.
--- NOTE | 2025-02-13 11:12 | DVH ---
US THORACENTESIS, HISTORY: right pleural effusion PROCEDURE: Informed consent was obtained. The patient was seated on the bed. A limited localization u ltrasound of the right thorax was obtained, and the optimal approach was marked on the skin. The area was prepped with chlorhexidine which was allowed to dry and draped in the usual sterile fashion. Zaki e out was performed. The skin and the soft tissues were infiltrated with 1% lidocaine. A 5.5 Citizen Of [place] c entesis needle catheter was advanced into right pleural space. Following aspiration of fluid, the cat heter was advanced and the needle removed. About 1500 cc of fluid was drained. Specimen/s was/were se nt for appropriate cultures/cytology/cultures and cytology. No immediate complication was identified. FINDINGS: Moderate right pleural effusion. Aspirated fluid is clear and serous. IMPRESSION: Successful right thoracentesis with 1.5L removed.
[2025-02-13] MEDS: LEVOTHYROXINE SODIUM 112 MCG TAB PO SCH (11:34)
[2025-02-13] MEDS: LISINOPRIL 20 MG TAB PO SCH (11:38)
[2025-02-13] MEDS: VANCOMYCIN 1GM/200ML PM 200 ML IV ONE (11:39)
[2025-02-13 13:33] LABS: Body Fluid Red Blood Cells 2477 CUMM (0-2000); Body Fluid White Blood Cells 1491 CUMM (0-200)
--- NOTE | 2025-02-13 15:26 | DVH ---
Procedure: CT HI-RESOLUTION CHEST CT Reason for study/Clinical History: malignancy vs effusion Comparison Study: None available at time of dictation. Exam Date: 02/13/2025 02:27 PM TECHNIQUE: Multidetector CT of the chest was performed from the lung apices to the upper abdomen with out the use of intravenous contract. Axial, coronal and sagittal multiplanar reformats were performed . Radiation Dose Information: CT Dose: CTDI volume is 25.2 mGy. Dose-length product is 1207.39 mGy*cm The dose indicators for CT are the volume Computed Tomography (CT) Dose Index (CTDIvol) and the Dose Length Product (DLP), and are measured in units of mGy and mGy-cm, respectively. These indicators are not patient dose, but values generated from the CT scanner acquisition factors. The report includes radiation exposure data for exposures received during this examination. FINDINGS: Lower neck: Normal thyroid. Lungs: Innumerable bilateral mostly subcentimeter pulmonary nodules suspicious for metastatic disease. Large st in the right middle lobe measures 1.1 cm. Moderate right pleural effusion. Heart/Vascular Structures: Normal heart size. No pericardial effusion. Lymph Nodes: No adenopathy Pleura: No pleural effusion or significant pneumothorax. Musculoskeletal: No acute osseous abnormality. Soft tissues: Normal. Upper abdomen: Limited portions of the upper abdomen are unremarkable. IMPRESSION: Innumerable bilateral mostly subcentimeter pulmonary nodules suspicious for metastatic disease. Large st in the right middle lobe measures 1.1 cm. Moderate right pleural effusion. Radiation optimization: All CT scans at this facility use at least one of these dose optimization pipo hniques: automated exposure control mA and/or kV adjustment per patient size (includes targeted exam s where dose is matched to clinical indication) or iterative reconstruction.
[2025-02-13] MEDS: DOXYCYCLINE 100MG/100ML 100 ML IV SCH (15:35)
[2025-02-13] MEDS: PIPERACILLIN-TAZOB 3.375GM 100 ML IV SCH (21:52)
[2025-02-13] MEDS: AMITRIPTYLINE HCL 25 MG TAB PO SCH (21:52)
[2025-02-14] VITALS (8 sets, daily range): BP systolic 102–119; BP diastolic 49–69; PULSE 63–83; RESP 16–21; TEMP 97.5–98.3; O2SAT 92–95
[2025-02-14 07:34] LABS: Hematocrit 39.6 % (36.0-46.0); Hemoglobin 13.1 g/dL (12.2-16.2); Mean Corpuscular Hemoglobin 29.8 pg (28.0-32.0); Mean Corpuscular Hgb Conc. 33.1 g/dL (32.0-36.0); Mean Corpuscular Volume 89.9 fL (80.0-100.0); Platelet Count (auto) 277 10^3/uL (140-450); Red Cell Distribution Width 14.6 % (11.8-14.3); White Blood Cell 23.4 10^3/uL (4.4-10.8)
[2025-02-14 07:40] LABS: Anion Gap 9 (5-15); Carbon Dioxide 28 mmol/L (20-31); Chloride 105 mmol/L (98-107); Sodium 142 mmol/L (136-145)
[2025-02-14 07:41] LABS: Calcium 9.6 mg/dL (8.7-10.4)
[2025-02-14 07:43] LABS: Potassium 3.5 mmol/L (3.5-5.1)
[2025-02-14 07:45] LABS: Band Neutrophils % (manual) 0; Basophils % (manual) 0 (0.0-2.0); Blast Cells 0; Eosinophils % (manual) 0 (0-7); Metamyelocytes % 0; Myelocytes % 0; Promyelocytes % 0
[2025-02-14 07:46] LABS: BUN/Creatinine Ratio 19.6 (10.0-20.0)
[2025-02-14 07:48] LABS: Blood Urea Nitrogen 29 mg/dL (9-23); Glucose 128 mg/dL (74-106)
[2025-02-14] MEDS: FUROSEMIDE 40 MG/4 ML VIAL IV SCH (09:11)
[2025-02-14 11:41] LABS: INR 1.04 (0.9-1.15); Partial Thromboplastin Time 27.9 SEC (24.5-34.5)
[2025-02-14 11:50] LABS: Lymphocytes % (manual) 51 (10.0-50.0); Monocytes % (manual) 8 (0-12); Platelet Estimate Adequate; Reactive Lymphocytes 4
--- NOTE | 2025-02-14 11:55 | DVHPNRES ---
Progress Note Date Seen: Feb 14, 2025 Resident Creating Document: VALENTE RENE RESIDENT Medical Necessity Reason Pt with a Central, PICC or Fol: No Subjective Review of Systems Patient was seen and examined on the bedside. He is alert oriented x3. mentioned breathing is improved after thoracentesis and on 2 L oxygen with saturation 97%. Pleural fluid analysis revealed exudative in nature and we are waiting for cytology to rule out malignancy. Objective vital signs Vital Sign Date Time Temp Pulse Resp B/P (MAP) Pulse Ox O2 Delivery O2 Flow Rate FiO2 02/14/25 09:11 102/49 02/14/25 08:30 97.6 72 18 95 97.6 02/13/25 20:00 Nasal Cannula* 6 44 Total Intake and Output 02/13/25 02/13/25 02/14/25 15:00 23:00 07:00 Intake Total 50 ml 1880 ml 1500 ml Balance 50 ml 1880 ml 1500 ml medications Current Medications Medications Dose Ordered Sig/Ruby Route Start Time Stop Time Status Last Admin Dose Admin Ondansetron HCl 4 mg Q4HP PRN IV 02/12/25 19:45 Docusate Sodium 100 mg BIDPRN PRN PO 02/12/25 19:45 Morphine Sulfate 2 mg Q4HPRN PRN IV 02/12/25 19:45 Nitroglycerin 0.4 mg Q5MINP PRN SL 02/12/25 19:45 Levothyroxine Sodium 112 mcg QAM PO 02/13/25 10:00 02/14/25 06:06 112 MCG Lisinopril 20 mg DAILY PO 02/13/25 10:00 02/14/25 09:11 20 MG Furosemide 20 mg DAILY IV 02/14/25 10:00 02/14/25 09:11 20 MG Doxycycline Hyclate 100 ml @ 50 mls/hr Q12H IV 02/13/25 14:45 02/14/25 02:25 50 MLS/HR Piperacillin Sod/ Tazobactam Sod 100 ml @ 25 mls/hr Q8HR IV 02/13/25 22:00 02/14/25 05:48 25 MLS/HR Amitriptyline HCl 25 mg HS PO 02/13/25 22:00 02/13/25 21:52 25 MG Examination Physical examination: General Appearance: Alert, Oriented X3, Cooperative, mild distress and on 2L oxygen. HEENT: Atraumatic, PERRLA, EOMI, Mucous membrane moist/pink Respiratory: Decreased breath sound on the rt side. Cardiovascular: Regular rate, Normal S1, Normal S2, No murmurs, no chest wall tenderness Abdominal: Normal bowel sounds, Soft, No tenderness, No hepatospenomegaly, No masses Extremities: No clubbing, No cyanosis, No edema, Normal pulses, No tenderness/swelling Skin: No rashes, No breakdown, No significant lesion Neuro: Normal gait, Normal speech, Strength at 5/5 X4 ext, Normal tone, Sensation intact, Cranial nerves 3-12 NL, Reflexes 2+ Psych/Mental Status: Mental status NL, Mood NL laboratory and microbiology Laboratory Tests 02/14/25 05:44 Test 02/14/25 05:44 Range/Units Serum Glucose 128 H 74-106 mg/dL Microbiology Date/Time Source Procedure Growth Status 02/13/25 11:40 Pleural Fluid Gram Stain - Final Resulted 02/13/25 11:40 Pleural Fluid Body Fluid Culture - Preliminary Resulted 02/12/25 14:41 Blood Blood Culture - Preliminary NO GROWTH AFTER 24 HOURS OF INCUBATION. Resulted Labs and/or images reviewed: Labs reviewed by me, Image(s) reviewed by me Problem List/Assessment/Plan Problem List/Assessment/Plan Assessment and plan: # Right sided moderate pleural effusion # Bilateral pulmonary nodule, rule out malignancy # Possible gram positive/ gram negative pneumonia with parapneumonic effusion # Leukocytosis predominantly lymphocytes likely due to malignancy # Sepsis/ SIRS likely due to above - High resolution CT scan of the chest demonstrated innumerable bilateral mostly subcentimeter pulmonary nodules suspicious for metastatic disease. Largest in the right middle lobe measuring 1.1 cm and moderate right pleural effusion. - Patient underwent right thoracentesis with 1.5 L removed by IR and the fluid sent for the study. - Pleural fluid analysis revealed exudative in nature and we are waiting for cytology to rule out malignancy - IV Zosyn 3.37 mg Q 8 hours - IV doxycycline 100 mg b.i.d. - Pulmonology on board. - Ordeded CEA, CA 125, CA 27, 29, AFP colonic, ovarian and hepatic malignancy # DANIEL on CKD likely due to hemodynamically mediated /VMN - Monitor BMP # hypertensive heart disease with possible chronic diastolic heart failure - lisinopril 20 mg p.o. daily # Chronic hypothyroidism - Levothyroxine 112 mcg at q.a.m. # prophylaxis - Pepcid 20 mg p.o. daily # DVT prophylaxis - Lovenox 40 mg sc daily Goal of care discussed with the patient for more than 20 minutes full code Plan discussed with Dr. Alfaro Plan discussed with: Patient, Other My Orders My Orders Orders - VALENTE RENE Procedure Category Date Status Time Doxycycline PHA 02/13/25 In Process 100mg/100ml 14:45 Piperacillin-Tazob PHA 02/13/25 In Process 3.375gm (Zosyn 3.375g 22:00 *Consult CONS 02/13/25 Transmitted / 14:41 Amitriptyline Hcl PHA 02/13/25 In Process Tablet (Elavil Tablet) 22:00 Date of Service: Feb 14, 2025 Billing Provider: LINO ALFARO MD Common Visit Codes: [id number] INP/OBS CARE(HIGH) VALENTE RENE RESIDENT Feb 14, 2025 11:55 LINO ALFARO MD Feb 14, 2025 17:30
[2025-02-14 13:07] LABS: Protein, Body Fluid 3.9 g/dL (.)
--- NOTE | 2025-02-14 19:18 | DVHINCON2 ---
Date of service: Feb 14, 2025 Referring Physician Valente Jimenez MD Reason for Consultation Acute hypoxic respiratory failure, pulmonary nodules, pleural effusion. History of Present Illness A 74-year-old woman with past medical history of CKD stage 3, hypertension, hypothyroidism, and depression who presented to ED on 02/12/25 with chief complaint of shortness of breath ongoing x1 month. Patient reported undergoing workup by primary doctor with echocardiogram, CT chest and chest x-ray and had upcoming appointment to see highway traffic control technician, but symptoms worsened and she presented to ED for evaluation. Pt was told she had questionable polyp in the right lung, but states she has never been diagnosed with cancer. She does not use home O2. Patient is on Lasix. Workup in ED included CXR revealing large right pleural effusion. White count was 19.1, creatinine was 1.60, glucose was 180, lactate was 3.0. Troponin was negative x2. Note, echocardiogram on January 10, 2025, showed EF of 65%. Patient was admitted for further care and pulmonary consultation is requested for evaluation and management due to the above findings. Review of Systems: 14-point review of systems negative unless otherwise noted above. Past Medical History: CKD stage 3, hypertension, hypothyroidism, and depression Past Surgical History: Gallbladder surgery Medications: Reviewed. Allergies: No known drug allergies. Family History: Positive family history of COPD. Social History: Former smoker. No alcohol or illicit drug use. Family History: Chronic obstructive pulmonary disease G8 MOTHER G8 SISTER Allergies: Coded Allergies: NO KNOWN ALLERGIES (Unverified , 02/12/25) Home Meds Active Scripts Levofloxacin Hemihydrate (LEVOFLOXACIN) 750 Mg Tab, 1 TAB PO DAILY for 7 Days, #7 TAB Prov:VALENTE JIMENEZ RESIDENT 02/15/25 Reported Medications Hctz (Hydrochlorothiazide) 25 Mg Tab, 1 TAB PO DAILY for 90 Days, #90 02/13/25 Potassium Chloride (Potassium Chloride ER) 10 Meq Tab, 1 TAB PO Q2D for 40 Days, #20 TAKE 1 TABLET BY MOUTH EVERY 2 DAYS WITH FOOD. 02/13/25 Amitriptyline HCl (Amitriptyline Hydrochlori) 25 Mg Tab, 1 TAB PO DAILY for 90 Days, #90 02/13/25 Albuterol Sulfate (Albuterol Sulfate Hfa) 108 Mcg/Act Aer, 2 PUFF PO Q4-6HR PRN for SHORTNESS OF BREATH for 16 Days, #6.7 02/13/25 Furosemide (Furosemide) 20 Mg Tab, 1 TAB PO Q2D for 10 Days, #20 TAKE 1 TABLET BY MOUTH EVERY 2 DAYS. 02/13/25 Levothyroxine Sodium (Levothyroxine Sodium) 112 Mcg Tab, 1 TAB PO DAILY for 90 Days, #90 02/13/25 Lisinopril (Lisinopril) 20 Mg Tab, 1 TAB PO DAILY for 90 Days, #90 02/13/25 Current Medications Current Medications Medications (Trade) Dose Ordered Sig/Ruby Route PRN Reason Start Time Stop Time Status Last Admin Furosemide (Lasix Injection) 20 mg DAILY IV 02/14/25 10:00 02/14/25 09:11 Piperacillin Sod/ Tazobactam Sod 100 ml @ 25 mls/hr Q8HR IV 02/13/25 22:00 02/14/25 13:30 Amitriptyline HCl (Elavil Tablet) 25 mg HS PO 02/13/25 22:00 02/13/25 21:52 Vital Signs Vital Signs Date Time Temp Pulse Resp B/P (MAP) Pulse Ox O2 Delivery O2 Flow Rate FiO2 02/14/25 17:00 97.6 71 20 110/57 (74) 92 97.6 02/14/25 07:30 Nasal Cannula* 6 44 Physical Exam Gen.: Patient lying in bed in no apparent distress. On supplemental oxygen. Head: Normocephalic, atraumatic. Eyes: EOMI/PERRLA. Ears: Normal hearing. Normal anatomy. Neck/trachea: Trachea midline, supple. Nose: Normal external anatomy. Mouth: Moist mucous membranes. Chest: Decreased air entry bilaterally. No wheezing or rhonchi. Cardiovascular: Positive S1, positive S2. Regular rate and rhythm. Abdomen: Positive bowel sounds in all 4 quadrants. Soft, non-tender, non- distended. : Deferred. Rectal: Deferred. Skin: Warm, dry. Intact. Extremities: 2+ radial pulses bilaterally. No lower extremity edema. Neuro: Awake, alert, oriented x3. No gross motor or sensory deficits. Cranial nerves II through XII intact. Gait not assessed. Labs/Diagnostic Data Labs Test 02/14/25 11:00 02/14/25 05:47 02/14/25 05:44 02/13/25 11:40 Range/Units Prothrombin Time 11.0 9.3-11.8 sec Prothrombin Time INR 1.04 0.9-1.15 Activated Partial Thromboplast Time 27.9 24.5-34.5 SEC Carcinoembryonic Antigen 42.70 <=5.0 ng/mL White Blood Count 23.4 H 4.4-10.8 10^3/uL Red Blood Count 4.40 4.0-5.20 10^6/uL Hemoglobin 13.1 12.2-16.2 g/dL Hematocrit 39.6 # 36.0-46.0 % Mean Corpuscular Volume 89.9 80.0-100.0 fL Mean Corpuscular Hemoglobin 29.8 28.0-32.0 pg Mean Corpuscular Hemoglobin Concent 33.1 32.0-36.0 g/dL Red Cell Distribution Width 14.6 H 11.8-14.3 % Platelet Count 277 140-450 10^3/uL Mean Platelet Volume 8.3 6.9-10.8 fL Neutrophils (%) (Auto) 37.0-80.0 % Lymphocytes (%) (Auto) 10.0-50.0 % Monocytes (%) (Auto) 0.0-12.0 % Basophils (%) (Auto) 0.0-2.0 % Neutrophils # (Auto) 1.6-8.6 10 ^3/uL Lymphocytes # (Auto) 0.4-5.4 10 ^3/uL Monocytes # (Auto) 0-1.3 10 ^3/uL Differential Total Cells Counted 100.0 100 Neutrophils % (Manual) 37 37.0-80.0 Band Neutrophils % (Manual) 0 Lymphocytes % (Manual) 51 H 10.0-50.0 Monocytes % (Manual) 8 0-12 Eosinophils % (Manual) 0 0-7 Basophils % (Manual) 0 0.0-2.0 Metamyelocytes % (manual) 0 Myelocytes % (Manual) 0 Promyelocytes % (Manual) 0 Blast Cells % (Manual) 0 Reactive Lymphocytes 4 Platelet Estimate Adequate Sodium Level 142 136-145 mmol/L Potassium Level 3.5 3.5-5.1 mmol/L Chloride Level 105 98-107 mmol/L Carbon Dioxide Level 28 20-31 mmol/L Anion Gap 9 5-15 Blood Urea Nitrogen 29 #H 9-23 mg/dL Creatinine 1.48 H 0.550-1.02 mg/dL Glomerular Filtration Rate Calc 37 >90 mL/min BUN/Creatinine Ratio 19.6 10.0-20.0 Serum Glucose 128 H 74-106 mg/dL Calcium Level 9.6 8.7-10.4 mg/dL Body Fluid Source Pleural fluid Body Fluid pH 8.0 Body Fluid WBC (Manual) 1491 H 0-200 CUMM Body Fluid RBC (Manual) 2477 H 0-2000 CUMM Body Fluid Mononuclear Cells 87 % Body Fluid Polymorphonuclear Cells 13 0-25 % Body Fluid Glucose 86 . mg/dL Body Fluid Total Protein 3.9 . g/dL Body Fluid Lactate Dehydrogenase 655 . IU/L Test 02/13/25 07:01 02/12/25 21:17 02/12/25 17:49 02/12/25 17:29 Range/Units Total Bilirubin 0.5 0.2-1.0 mg/dL Aspartate Amino Transferase (AST) 39 13-40 U/L Alanine Aminotransferase (ALT) 21 7-40 U/L Alkaline Phosphatase 87 46-116 U/L B-Type Natriuretic Peptide 64.16 0-100 pg/mL Total Protein 6.0 5.7-8.2 g/dL Albumin 3.7 3.2-4.8 g/dL Random Vancomycin Level 12.1 H 5-10 ug/mL Nucleated Red Blood Cells 0.1 % Clumped Platelets Few Large Platelets Few Lactate Dehydrogenase 311 H 120-246 U/L Troponin I High Sensitivity 29 </=34 ng/L Thyroid Stimulating Hormone (TSH) 1.65 0.55-4.78 uIU/mL Urine Color Yellow Yellow Urine Clarity Clear Clear Urine pH 5.5 5.0-9.0 Urine Specific [place] 1.018 1.001-1.035 Urine Protein Negative Negative Urine Ketones Negative Negative Urine Blood Negative Negative /uL Urine Nitrite Negative Negative Urine Bilirubin Negative Negative Urine Urobilinogen Normal Negative mg/dL Urine Leukocyte Esterase Negative Negative /uL Urine RBC 2 0 - 4 /hpf Urine Microscopic WBC 3 0-5 /HPF Urine Squamous Epithelial Cells Few <5 /hpf Urine Bacteria None seen None Seen /hpf Urine Hyaline Casts Few 0 - 2 /lpf Urine Glucose Normal Normal mg/dL Test 02/12/25 16:42 02/12/25 14:41 Range/Units Lactic Acid Level 1.7 0.4-2.0 mmol/L Anisocytosis (manual) Slight Microbiology Date/Time Source Procedure Growth Status 02/13/25 11:40 Pleural Fluid Gram Stain - Final Resulted 02/13/25 11:40 Pleural Fluid Body Fluid Culture - Preliminary Resulted 02/12/25 14:41 Blood Blood Culture - Preliminary NO GROWTH AFTER 48 HOURS OF INCUBATION. Resulted Assessment Impression: Acute hypoxic respiratory failure Dependence on supplemental oxygen Pulmonary nodules, possible metastasis Pleural effusion, right Atelectasis Sepsis Morbid obesity Hx of nicotine dependence Plan: Supplemental oxygen Currently tapered from 6 LPM --> 2 LPM NC Titrate to keep O2 sats above 92%. Taper O2 as tolerated. CT chest on 02/13/25 demonstrates innumerable bilateral mostly subcentimeter pulmonary nodules suspicious for metastatic disease. Largest in the right middle lobe measures 1.1 cm. Moderate right pleural effusion. Exudative effusion based on Light's criteria S/p right thoracentesis by IR on 02/13/25 with 1.5 L fluid removed from right pleural space. Follow up culture and cytology results. Continue bronchodilators. Continue antibiotics Incentive spirometry Diurese as tolerated w/ Lasix Monitor renal function. Monitor electrolytes. Supplement as necessary. Monitor ins and outs. Diet and lifestyle modifications for weight reduction Morbid obesity - complicates all care DVT prophylaxis. Prognosis: Poor given patient's multiple co-morbidities. Rest of plan per hospitalist and other consultants. Thank you, Dr. Jimenez, for allowing me to participate in this patient's care. Further recommendations will depend on the patient's clinical course. Please do not hesitate to contact me if you have any questions or concerns. This medical document was created using an electronic medical record system with [employer] dictation system. Although these documentations are being carefully reviewed, there may still be some phonetic and typographical changes. The errors are purely typographical, due to imperfection on the software program, and do not reflect any compromise in the patient's medical care. Plan discussed with: Patient, Other (SUMI Sommers/Dr. Jimenez) AARON HILL MD Feb 14, 2025 19:18
[2025-02-14 22:28] LABS: COVID19 ANTIGEN SOFIA FIA NEGATIVE (NEGATIVE); Rapid Influenza A Negative (Negative); Rapid Influenza B Negative (Negative)
[2025-02-15] VITALS (7 sets, daily range): BP systolic 95–113; BP diastolic 38–56; PULSE 62–74; RESP 16–20; TEMP 97.3–97.7; O2SAT 92–94
[2025-02-15 07:51] LABS: Hematocrit 41.1 % (36.0-46.0); Hemoglobin 13.3 g/dL (12.2-16.2); Mean Corpuscular Hemoglobin 29.3 pg (28.0-32.0); Mean Corpuscular Hgb Conc. 32.3 g/dL (32.0-36.0); Mean Corpuscular Volume 90.4 fL (80.0-100.0); Platelet Count (auto) 274 10^3/uL (140-450); Red Blood Cells 4.55 10^6/uL (4.0-5.20); Red Cell Distribution Width 14.4 % (11.8-14.3); White Blood Cell 21.1 10^3/uL (4.4-10.8)
[2025-02-15 07:52] LABS: Chloride 104 mmol/L (98-107); Potassium 3.6 mmol/L (3.5-5.1); Sodium 142 mmol/L (136-145)
[2025-02-15 07:53] LABS: Anion Gap 7 (5-15); Calcium 9.6 mg/dL (8.7-10.4); Carbon Dioxide 31 mmol/L (20-31)
[2025-02-15 07:58] LABS: BUN/Creatinine Ratio 19.6 (10.0-20.0); Blood Urea Nitrogen 35 mg/dL (9-23); Glucose 138 mg/dL (74-106)
[2025-02-15 08:03] LABS: Band Neutrophils % (manual) 0; Basophils % (manual) 0 (0.0-2.0); Blast Cells 0; Metamyelocytes % 0; Myelocytes % 0; Promyelocytes % 0
[2025-02-15 08:07] LABS: AFP Serum Tumor Marker <1.8 ng/mL (0.0-9.2); Carbohydrate Antigen 19-9 942 U/mL (0-35)
[2025-02-15 09:37] LABS: Eosinophils % (manual) 2 (0-7); Lymphocytes % (manual) 60 (10.0-50.0); Monocytes % (manual) 5 (0-12); Platelet Estimate Adequate; Reactive Lymphocytes 8
[2025-02-15] MEDS ORDERED: LEVO750T40 PO (16:23)
--- NOTE | 2025-02-15 18:29 | DVHDSRES ---
Discharge Summary Date of Admission Resident Creating Document: VALENTE RENE RESIDENT Feb 12, 2025 at 19:40 Date of Discharge: Feb 15, 2025 Admitting Diagnosis Right-sided moderate pleural effusion Wounds: No wound was present. Labs/Diagnostic Data: Laboratory Results Test 02/15/25 07:18 02/14/25 21:48 02/14/25 11:00 02/14/25 05:47 White Blood Count 21.1 10^3/uL (4.4-10.8) Red Blood Count 4.55 10^6/uL (4.0-5.20) Hemoglobin 13.3 g/dL (12.2-16.2) Hematocrit 41.1 % (36.0-46.0) Mean Corpuscular Volume 90.4 fL (80.0-100.0) Mean Corpuscular Hemoglobin 29.3 pg (28.0-32.0) Mean Corpuscular Hemoglobin Concent 32.3 g/dL (32.0-36.0) Red Cell Distribution Width 14.4 % (11.8-14.3) Platelet Count 274 10^3/uL (140-450) Mean Platelet Volume 8.2 fL (6.9-10.8) Neutrophils (%) (Auto) % (37.0-80.0) Lymphocytes (%) (Auto) % (10.0-50.0) Monocytes (%) (Auto) % (0.0-12.0) Basophils (%) (Auto) % (0.0-2.0) Neutrophils # (Auto) 10 ^3/uL (1.6-8.6) Lymphocytes # (Auto) 10 ^3/uL (0.4-5.4) Monocytes # (Auto) 10 ^3/uL (0-1.3) Differential Total Cells Counted 100.0 (100) Neutrophils % (Manual) 25 (37.0-80.0) Band Neutrophils % (Manual) 0 Lymphocytes % (Manual) 60 (10.0-50.0) Monocytes % (Manual) 5 (0-12) Eosinophils % (Manual) 2 (0-7) Basophils % (Manual) 0 (0.0-2.0) Metamyelocytes % (manual) 0 Myelocytes % (Manual) 0 Promyelocytes % (Manual) 0 Blast Cells % (Manual) 0 Reactive Lymphocytes 8 Platelet Estimate Adequate Sodium Level 142 mmol/L (136-145) Potassium Level 3.6 mmol/L (3.5-5.1) Chloride Level 104 mmol/L (98-107) Carbon Dioxide Level 31 mmol/L (20-31) Anion Gap 7 (5-15) Blood Urea Nitrogen 35 mg/dL (9-23) Creatinine 1.79 mg/dL (0.550-1.02) Glomerular Filtration Rate Calc 29 mL/min (>90) BUN/Creatinine Ratio 19.6 (10.0-20.0) Serum Glucose 138 mg/dL (74-106) Calcium Level 9.6 mg/dL (8.7-10.4) Influenza Type A Antigen Negative (Negative) Influenza Type B Antigen Negative (Negative) SARS-CoV-2 Antigen (Rapid) Negative (NEGATIVE) Prothrombin Time 11.0 sec (9.3-11.8) Prothrombin Time INR 1.04 (0.9-1.15) Activated Partial Thromboplast Time 27.9 SEC (24.5-34.5) Tumor Marker Alpha Fetoprotein <1.8 ng/mL (0.0-9.2) CA 19-9 Antigen 942 U/mL (0-35) CA 125 Antigen 1648.0 U/mL (0.0-38.1) Carcinoembryonic Antigen 42.70 ng/mL (<=5.0) Test 02/13/25 11:40 02/13/25 07:01 02/12/25 21:17 02/12/25 17:49 Body Fluid Source Pleural fluid Body Fluid pH 8.0 Body Fluid WBC (Manual) 1491 CUMM (0-200) Body Fluid RBC (Manual) 2477 CUMM (0-2000) Body Fluid Mononuclear Cells 87 % Body Fluid Polymorphonuclear Cells 13 % (0-25) Body Fluid Glucose 86 mg/dL (.) Body Fluid Total Protein 3.9 g/dL (.) Body Fluid Lactate Dehydrogenase 655 IU/L (.) Total Bilirubin 0.5 mg/dL (0.2-1.0) Aspartate Amino Transferase (AST) 39 U/L (13-40) Alanine Aminotransferase (ALT) 21 U/L (7-40) Alkaline Phosphatase 87 U/L (46-116) B-Type Natriuretic Peptide 64.16 pg/mL (0-100) Total Protein 6.0 g/dL (5.7-8.2) Albumin 3.7 g/dL (3.2-4.8) Random Vancomycin Level 12.1 ug/mL (5-10) Nucleated Red Blood Cells 0.1 % Clumped Platelets Few Large Platelets Few Lactate Dehydrogenase 311 U/L (120-246) Troponin I High Sensitivity 29 ng/L (</=34) Thyroid Stimulating Hormone (TSH) 1.65 uIU/mL (0.55-4.78) Test 02/12/25 17:29 02/12/25 16:42 02/12/25 14:41 Urine Color Yellow (Yellow) Urine Clarity Clear (Clear) Urine pH 5.5 (5.0-9.0) Urine Specific Rhine 1.018 (1.001-1.035) Urine Protein Negative (Negative) Urine Ketones Negative (Negative) Urine Blood Negative /uL (Negative) Urine Nitrite Negative (Negative) Urine Bilirubin Negative (Negative) Urine Urobilinogen Normal mg/dL (Negative) Urine Leukocyte Esterase Negative /uL (Negative) Urine RBC 2 /hpf (0 - 4) Urine Microscopic WBC 3 /HPF (0-5) Urine Squamous Epithelial Cells Few /hpf (<5) Urine Bacteria None seen /hpf (None Seen) Urine Hyaline Casts Few /lpf (0 - 2) Urine Glucose Normal mg/dL (Normal) Lactic Acid Level 1.7 mmol/L (0.4-2.0) Anisocytosis (manual) Slight Other Laboratory Tests 02/15/25 07:18 Brief Hx & Hospital Course: This is a 74-year-old female past medical history of hypertension, CKD stage 3, hypothyroidism, depression, morbid obesity presented to the ED with a chief complaint of progressing progressive shortness of breath for last 1 month prior to this admission. patient stated that since mid December she developed shortness of breath with occasional cough, sputum, previously went to the urgent care and treated for pneumonia but her symptoms never get relieved getting worse that prompted this visit. Hospital course: CT scan of the chest demonstrated innumerable bilateral mostly subcentimeter pulmonary nodules suspicious for metastatic disease. Largest in the right middle lobe measuring 1.1 cm and moderate right pleural effusion. Patient underwent right thoracentesis with 1.5 L removed by IR and the pleural fluid analysis showed exudative in nature. CBC demonstrated Leukocytosis predominantly lymphocytes likely due to malignancy. 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 Patient was counseled regarding further management and the patient and the family agreed for hospice care. patient was treated with IV Zosyn 3.375 mg Q 8 hours, IV doxycycline 100 mg b.i.d, IV Lasix 20 mg daily and resumed home medications. health care social worker was consulted regarding placement for hospice care. Discharge plan was discussed with the patient and all questions were answered. Patient is being discharged to hospice. Physical examination: General Appearance: Alert, Oriented X3, Cooperative, mild distress and on 6L oxygen. HEENT: Atraumatic, PERRLA, EOMI, Mucous membrane moist/pink Respiratory: Decreased breath sound on the rt side. Cardiovascular: Regular rate, Normal S1, Normal S2, No murmurs, no chest wall tenderness Abdominal: Normal bowel sounds, Soft, No tenderness, No hepatospenomegaly, No masses Extremities: No clubbing, No cyanosis, No edema, Normal pulses, No tenderness/swelling Skin: No rashes, No breakdown, No significant lesion Neuro: Normal gait, Normal speech, Strength at 5/5 X4 ext, Normal tone, Sensation intact, Cranial nerves 3-12 NL, Reflexes 2+ Psych/Mental Status: Mental status NL, Mood NL Consults/Reason for consult Pulmonology was consulted Operations or Procedures Procedure: CT HI-RESOLUTION CHEST CT Reason for study/Clinical History: malignancy vs effusion Comparison Study: None available at time of dictation. Exam Date: 02/13/2025 02:27 PM TECHNIQUE: Multidetector CT of the chest was performed from the lung apices to the upper abdomen without the use of intravenous contract. Axial, coronal and sagittal multiplanar reformats were performed. Radiation Dose Information: CT Dose: CTDI volume is 25.2 mGy. Dose-length product is 1207.39 mGy*cm The dose indicators for CT are the volume Computed Tomography (CT) Dose Index (CTDIvol) and the Dose Length Product (DLP), and are measured in units of mGy and mGy-cm, respectively. These indicators are not patient dose, but values generated from the CT scanner acquisition factors. The report includes radiation exposure data for exposures received during this examination. FINDINGS: Lower neck: Normal thyroid. Lungs: Innumerable bilateral mostly subcentimeter pulmonary nodules suspicious for metastatic disease. Largest in the right middle lobe measures 1.1 cm. Moderate right pleural effusion. Heart/Vascular Structures: Normal heart size. No pericardial effusion. Lymph Nodes: No adenopathy Pleura: No pleural effusion or significant pneumothorax. Musculoskeletal: No acute osseous abnormality. Soft tissues: Normal. Upper abdomen: Limited portions of the upper abdomen are unremarkable. IMPRESSION: Innumerable bilateral mostly subcentimeter pulmonary nodules suspicious for metastatic disease. Largest in the right middle lobe measures 1.1 cm. Moderate right pleural effusion. Condition at Discharge: Guarded Final Diagnosis/Problems List # Right sided moderate possible malignant pleural effusion, s/p thoracentesis # Bilateral pulmonary nodule possible metastasis from ovarian malignancy # Possible gram positive/ gram negative pneumonia with parapneumonic effusion # Leukocytosis predominantly lymphocytes likely due to malignancy # Sepsis/ SIRS likely due to above # DANIEL on CKD likely due to hemodynamically mediated /VMN # Hypertensive heart disease with possible chronic diastolic heart failure # Chronic hypothyroidism Discharge Disposition: Home Discharge Instruct/Medications Diet: Cardiac 2g Na,low cholest Activity: No Restrictions, As Tolerated Follow Up/Referral: Follow up with PCP in 1 week Medications: As per EMR Discharge Statement: "Patient was advised to return to the ER or call 911 if any headaches, dizziness, shortness of breath, chest pain, abdominal pain, bleeding, fevers, or worsening of medical condition. Patient was counseled about treatment plan, medications, possible side effects, patientverbalized understanding. All questions were answered to the best of my ability. This discharge took greater then 30 minutes in planning, reviewing documentation, counseling the patient, and discussing with other team members." ASSESSMENT ASSESSMENT Assessment # Right sided moderate possible malignant pleural effusion, s/p thoracentesis # Bilateral pulmonary nodule possible metastasis from ovarian malignancy # Possible gram positive/ gram negative pneumonia with parapneumonic effusion # Leukocytosis predominantly lymphocytes likely due to malignancy # Sepsis/ SIRS likely due to above # DANIEL on CKD likely due to hemodynamically mediated /VMN # Hypertensive heart disease with possible chronic diastolic heart failure # Chronic hypothyroidism Date of Service: Feb 15, 2025 Billing Provider: LINO GARCIA MD Common Visit Codes: 84408-BYR/OBS DISCH DAY >30min VALENTE RENE RESIDENT Feb 15, 2025 18:29 LINO GARCIA MD Feb 15, 2025 19:22
--- NOTE | 2025-02-15 18:30 | DVHPN2 ---
Progress Note - Dictate Date Seen: Feb 15, 2025 Medical Necessity Reason Pt with a Central, PICC or Fol: No Subjective Patient seen and examined at bedside. Remains on supplemental oxygen Overnight events reviewed. vital signs Vital Sign Date Time Temp Pulse Resp B/P (MAP) Pulse Ox O2 Delivery O2 Flow Rate FiO2 02/15/25 17:04 97.5 71 16 102/45 (64) 94 97.5 02/15/25 08:00 Nasal Cannula* 3 32 Total Intake and Output 02/14/25 02/14/25 02/15/25 15:00 23:00 07:00 Intake Total 400 ml 525 ml Balance 400 ml 525 ml medications Current Medications Medications Dose Ordered Sig/Ruby Route Start Time Stop Time Status Last Admin Dose Admin Ondansetron HCl 4 mg Q4HP PRN IV 02/12/25 19:45 Docusate Sodium 100 mg BIDPRN PRN PO 02/12/25 19:45 Morphine Sulfate 2 mg Q4HPRN PRN IV 02/12/25 19:45 Nitroglycerin 0.4 mg Q5MINP PRN SL 02/12/25 19:45 Levothyroxine Sodium 112 mcg QAM PO 02/13/25 10:00 02/15/25 05:37 112 MCG Lisinopril 20 mg DAILY PO 02/13/25 10:00 02/14/25 09:11 20 MG Furosemide 20 mg DAILY IV 02/14/25 10:00 02/15/25 09:45 20 MG Doxycycline Hyclate 100 ml @ 50 mls/hr Q12H IV 02/13/25 14:45 02/15/25 13:45 50 MLS/HR Piperacillin Sod/ Tazobactam Sod 100 ml @ 25 mls/hr Q8HR IV 02/13/25 22:00 02/15/25 05:37 25 MLS/HR Amitriptyline HCl 25 mg HS PO 02/13/25 22:00 02/14/25 21:47 25 MG objective Gen.: Patient lying in bed in no apparent distress. On supplemental oxygen. Head: Normocephalic, atraumatic. Eyes: EOMI/PERRLA. Ears: Normal hearing. Normal anatomy. Neck/trachea: Trachea midline, supple. Nose: Normal external anatomy. Mouth: Moist mucous membranes. Chest: Decreased air entry bilaterally. No wheezing or rhonchi. Cardiovascular: Positive S1, positive S2. Regular rate and rhythm. Abdomen: Positive bowel sounds in all 4 quadrants. Soft, non-tender, non- distended. : Deferred. Rectal: Deferred. Skin: Warm, dry. Intact. Extremities: 2+ radial pulses bilaterally. No lower extremity edema. Neuro: Awake, alert, oriented x3. No gross motor or sensory deficits. Cranial nerves II through XII intact. Gait not assessed. laboratory and microbiology Laboratory Tests 02/15/25 07:18 Test 02/15/25 07:18 Range/Units Serum Glucose 138 H 74-106 mg/dL Assessment/Plan Impression: Acute hypoxic respiratory failure Dependence on supplemental oxygen Pulmonary nodules, possible metastasis Pleural effusion, right Atelectasis Sepsis Morbid obesity Hx of nicotine dependence Events: Remains on supplemental oxygen, 2 LPM NC Taper O2 as tolerated Plan to discharge home on hospice care. Consider PleurX catheter if recurrent right pleural effusion. Continue antibiotics Incentive spirometry Labs and imaging reviewed. Rest of plan as noted below. Plan: Supplemental oxygen Titrate to keep O2 sats above 92%. CT chest on 02/13/25 demonstrates innumerable bilateral mostly subcentimeter pulmonary nodules suspicious for metastatic disease. Largest in the right middle lobe measures 1.1 cm. Moderate right pleural effusion. Exudative effusion based on Light's criteria S/p right thoracentesis by IR on 02/13/25 with 1.5 L fluid removed from right pleural space. Pleural fluid cultures show no growth Continue antibiotics Incentive spirometry Diurese as tolerated w/ Lasix Monitor renal function. Monitor electrolytes. Supplement as necessary. Monitor ins and outs. Diet and lifestyle modifications for weight reduction Morbid obesity - complicates all care DVT prophylaxis. Prognosis: Poor given patient's multiple co-morbidities. Rest of plan per hospitalist and other consultants. Thank you, Dr. Jimenez, for allowing me to participate in this patient's care. Further recommendations will depend on the patient's clinical course. Please do not hesitate to contact me if you have any questions or concerns. This medical document was created using an electronic medical record system with [employer] system. Although these documentations are being carefully reviewed, there may still be some phonetic and typographical changes. The errors are purely typographical, due to imperfection on the software program, and do not reflect any compromise in the patient's medical care. Dietary Evaluation Review Comments: Continue current plan of care Expected Outcomes/Goals: Pt will meet >75% estimated needs Fu 3-5 days Plan discussed with: Patient, Other (SUMI Wilburn) AARON HILL MD Feb 15, 2025 18:30
[2025-02-16 09:07] LABS: CA 27.29 45.6 U/mL (0.0-38.6)
== END 2025-02-15 18:10 | disposition hospice, home (50) | DRG 180 ==
LOC: ER 13:53 → OVERFLOW 19:40 → TELE-WESTW 19:50
PROVIDERS: ADMIT Internal Medicine; ATTEND Internal Medicine
PROC: 0W993ZX Drainage of Right Pleural Cavity, Percutaneous Approach, Diagnostic (ICD-10-PCS; principal; 2025-02-13)
DX: C78.01 Secondary malignant neoplasm of right lung (principal); A41.9 Sepsis, unspecified organism; J15.69 Pneumonia due to other Gram-negative bacteria; J15.9 Unspecified bacterial pneumonia; J96.01 Acute respiratory failure with hypoxia; N17.0 Acute kidney failure with tubular necrosis; E87.20 Acidosis, unspecified; Z68.42 Body mass index [BMI] 45.0-49.9, adult; J91.0 Malignant pleural effusion; C56.3 Malignant neoplasm of bilateral ovaries; I13.0 Hypertensive heart and chronic kidney disease with heart failure and stage 1 through stage 4 chronic kidney disease, or unspecified chronic kidney disease; I50.32 Chronic diastolic (congestive) heart failure; C78.02 Secondary malignant neoplasm of left lung; Z51.5 Encounter for palliative care; N18.30 Chronic kidney disease, stage 3 unspecified; E03.9 Hypothyroidism, unspecified; E66.01 Morbid (severe) obesity due to excess calories; F32.A Depression, unspecified; E87.70 Fluid overload, unspecified; Z90.49 Acquired absence of other specified parts of digestive tract; Z82.5 Family history of asthma and other chronic lower respiratory diseases; Z99.81 Dependence on supplemental oxygen; Z79.899 Other long term (current) drug therapy
CPT/HCPCS: 32555; 36415; 71045; 71250; 76604; 76942; 80048; 80053; 80202; 81001; 82105; 82378; 83605; 83615; 83880; 83986; 84443; 84484; 85007; 85027; 85048; 85610; 85730; 86300; 86301; 86304; 87040; 87081; 87205; 87426; 87804; 89051; 93970; 96365; 96375; G0378; J2543

== ENCOUNTER 2025-03-19 11:19 | Inpatient (IN) | payer OTHER, BC ==
[~2025-03-19] VITALS: Ht 165.1 cm; Wt 121.7 kg
[2025-03-19] VITALS (11 sets, daily range): BP systolic 151–153; BP diastolic 57–78; PULSE 79–97; RESP 13–24; TEMP 97.8; O2SAT 90–96
[~2025-03-19 11:19] MED LIST changes: +LEVO750T40 PO
--- NOTE | 2025-03-19 11:41 | ED.PDOC ---
SOB-HPI HPI Comments 74 year old female presents to the ED with a chief complaint of shortness of breath. Patient was sent by Dr. Ramos for admission, for pleurocentesis. Last thoracentesis was 02/22/25. PMHx HTN, cancer. Denies chest pain, dizziness, nausea, vomiting, diarrhea. No other symptoms or modifying factors present at this time. Time Seen by MD: 11:30 Primary Care Provider: Lynsey Reviewed notes: Medications, Allergies Information Source: Patient, Relative Mode of Arrival: Ambulatory Severity: Moderate Timing: Days Duration: Since onset Context: At Rest PE Risk Factors: None History of: None Prehospital treatment: None Modifying Factors: Nothing Past Medical History PAST MEDICAL HISTORY: HTN, Thyroid Surgical History: Cholecystectomy [employer] History: Denies all [employer] Hx Family History Family History: Unknown Social History Smoker: Non-Smoker Alcohol: Denies ETOH Use Drugs: Denies Drug Use Lives In: Home Constitutional: denies: chills, diaphoresis, fatigue, fever, malaise, sweats, weakness, others EENTM: denies: blurred vision, double vision, ear bleeding, ear discharge, ear drainage, ear pain, ear ringing, eye pain, eye redness, hearing loss, mouth pain, mouth swelling, nasal discharge, nose bleeding, nose congestion, nose pain, photophobia, tearing, throat pain, throat swelling, voice changes, others Respiratory: reports: shortness of breath; denies: cough, hemoptysis, orthopnea, SOB at rest, SOB with excertion, stridor, wheezing, others Cardiovascular: denies: chest pain, dizzy spells, diaphoresis, Dyspnea on exertion, edema, irregular heart beat, left arm pain, lightheadedness, palpitations, PND, syncope, others Gastrointestinal: denies: abdomen distended, abdominal pain, blood streaked bowels, constipated, diarrhea, dysphagia, difficulty swallowing, hematemesis, melena, nausea, poor appetite, poor fluid intake, rectal bleeding, rectal pain, vomiting, others Genitourinary: denies: abnormal vagina bleeding, burning, dyspareunia, dysuria, flank pain, frequency, hematuria, incontinence, pain, , vagina discharge, urgency, others Neurological: denies: dizziness, fainting, headache, left sided numbness, left sided weakness, numbness, paresthesia, pre-existing deficit, right sided numbnes s, right sided weakness, seizure, speech problems, tingling, tremors, weakness, others Musculoskeletal: denies: back pain, gout, joint pain, joint swelling, muscle pain, muscle stiffness, neck pain, others Integumetry: denies: bruises, change in color, change in hair/nails, dryness, laceration, lesions, lumps, rash, wounds, others Allergic/Immunocompromised: denies: Difficulty Healing, Frequent Infections, Hives, Itching, others Hematologic/Lymphatic: denies: anemia, blood clots, easy bleeding, easy bruising, swollen glands, others Endocrine: denies: excessive hunger, excessive sweating, excessive thirst, excessive urination, flushing, intolerance to cold, intolerance to heat, unexplained weight gain, unexplained weight loss, others Psychiatric: denies: anxiety, bipolar disorder, depression, hopeless, panic disorder, schizophrenia, sleepless, suicidal, others All Other Systems: Reviewed and Negative Physical Exam General Appearance: Moderate Distress, Normal HEENT: Normal ENT Inspection, Pharynx Normal, TMs Normal Neck: Full Range of Motion, Non-Tender, Normal, Normal Inspection Respiratory: Chest Non-Tender, Decreased Breath Sounds (Right), No Accessory Muscle Use Cardiovascular: No Edema, No JVD, No Murmur, No Gallop, Normal Peripheral Pu lses, Regular Rate/Rhythm Breast Exam: Deferred Gastrointestinal: No Organomegaly, Non Tender, No Pulsatile Mass, Normal Bowel Sounds, Soft Genitalia: Deferred Pelvic: Deferred Rectal: Deferred Extremities: No calf tenderness, Normal capillary refill, Normal inspection, Normal range of motion, Non-tender, No pedal edema Musculoskeletal : Apperance: Normal Neurologic: Alert, air brake rigger II-XII nml as Tested, No Motor Deficits, Normal Affect, Normal Mood, No Sensory Deficits Cerebellar Function: NOT DONE Reflexes: NOT DONE Skin: Dry, Normal Color, Warm Peripheral Pulses: 3+ Radial (R), 3+ Radial (L) Lymphatic: No Adenopathy Was a procedure done? Was a procedure done?: No Differential Dx Differential Diagnosis: Anxiety, Asthma, Bronchitis, CHF, COPD X-Ray, Labs, Meds, VS Vital Signs Date Time Temp Pulse Resp B/P (MAP) Pulse Ox O2 Delivery O2 Flow Rate FiO2 03/19/25 11:45 97.8 88 18 134/61 (85) 90 97.8 Lab Test 03/19/25 12:00 Range/Units White Blood Count 17.0 H 4.4-10.8 10^3/uL Red Blood Count 4.94 4.0-5.20 10^6/uL Hemoglobin 14.4 12.2-16.2 g/dL Hematocrit 44.2 36.0-46.0 % Mean Corpuscular Volume 89.4 80.0-100.0 fL Mean Corpuscular Hemoglobin 29.2 28.0-32.0 pg Mean Corpuscular Hemoglobin Concent 32.6 32.0-36.0 g/dL Red Cell Distribution Width 14.4 H 11.8-14.3 % Platelet Count 265 140-450 10^3/uL Mean Platelet Volume 8.7 6.9-10.8 fL Neutrophils (%) (Auto) 46.6 37.0-80.0 % Lymphocytes (%) (Auto) 46.1 10.0-50.0 % Monocytes (%) (Auto) 6.1 0.0-12.0 % Eosinophils (%) (Auto) 0.5 0.0-7.0 % Basophils (%) (Auto) 0.7 0.0-2.0 % Neutrophils # (Auto) 7.9 1.6-8.6 10 ^3/uL Lymphocytes # (Auto) 7.9 H 0.4-5.4 10 ^3/uL Monocytes # (Auto) 1.0 0-1.3 10 ^3/uL Eosinophils # (Auto) 0.1 0-0.8 10 ^3/uL Basophils # (Auto) 0.1 0-0.2 10 ^3/uL Nucleated Red Blood Cells 0.1 % Prothrombin Time 11.1 9.3-11.8 sec Prothrombin Time INR 1.05 0.9-1.15 Activated Partial Thromboplast Time 26.8 24.5-34.5 SEC Sodium Level 142 136-145 mmol/L Potassium Level 3.6 3.5-5.1 mmol/L Chloride Level 99 98-107 mmol/L Carbon Dioxide Level 35 H 20-31 mmol/L Anion Gap 8 5-15 Blood Urea Nitrogen 17 9-23 mg/dL Creatinine 1.14 H 0.550-1.02 mg/dL Glomerular Filtration Rate Calc 50 >90 mL/min BUN/Creatinine Ratio 14.9 10.0-20.0 Serum Glucose 135 H 74-106 mg/dL Calcium Level 10.7 H 8.7-10.4 mg/dL [address] [address] Ph: [phone] DIAGNOSTIC IMAGING Diagnostic Imaging Report : [id number] Signed PATIENT: MARK JEFFREYACCT: [id number] UNIT: [id number] : 1950 LOC: ER ROOM / BED: / AGE / SEX: 74 / F ADM STATUS: REG ER SERVICE [id number] ORDERING PHYSICIAN: BEKAH ABREU MD PROCEDURE(s): CXRP - CHEST PORTABLE REASON: sob ORDER NUMBER(s): [id number], ACCESSION NUMBER(s): [id number] CHEST RADIOGRAPH Indication: sob Technique: Single frontal view of the chest was obtained COMPARISON: XY CHEST PORTABLE on DOS: 02/13/25, XY CHEST PORTABLE on DOS: 02/12/25 FINDINGS: Lines and Tubes: None Lungs: Opacification of the right lung. Pleura: Moderate to severe right pleural effusion. No pneumothorax. Cardiomediastinal contours: Unremarkable Bones: Unremarkable IMPRESSION: Moderate to severe right pleural effusion. ATED BY: AVNI MIX MD DICTATED DATE/TIME: 03/19/258 SIGNED BY: AVNI MIX MD SIGNED DATE/TIME: 03/19/25 121 CC: Patient alert. Answering questions. Complaining of shortness a breath. She is on oxygen. Had to increase the oxygen because fluid possibly accumulated. Chest x-ray does reveal right large pleural effusion. Thoracentesis. Radiology consultation. Spoke with her physician. Explained to the family. Continue monitoring. Time of 1ST Reevaluation: 12:00 Reevaluation 1ST: Unchanged Patient Education/Counseling: Diagnosis, Treatment, Prognosis Family Education/Counseling: Diagnosis, Treatment, Prognosis Departure 1 Departure Time of Disposition: 13:22 Impression: Primary Impression: Acute and chronic respiratory failure Additional Impression: Pleural effusion, right Disposition: ADMITTED INPATIENT Admit to: Med Surg Condition: Guarded Critical Care Note Critical Care Time?: Yes (90 min-critical care time only) Critical care comment: Placed on oxygen Stability Stability form required: No Heart Score Heart Score: Heart Score Response (Comments) Value History N/A 0 EKG N/A 0 Age N/A 0 Risk Factors N/A 0 Troponin N/A 0 Total 0 I personally scribed for BEKAH ABREU MD ([email or web address]) on 03/19/25 at 11:41. Electronically submitted by Stacey Sims ([email or web address]). I personally scribed for BEKAH ABREU MD ([email or web address]) on 03/19/25 at 13:01. Electronically submitted by Stacey Sims ([email or web address]). BEKAH ABREU MD March 19, 2025 11:41
[2025-03-19 12:18] LABS: Basophils # (auto) 0.1 10 ^3/uL (0-0.2); Basophils % (auto) 0.7 % (0.0-2.0); Eosinophils # (auto) 0.1 10 ^3/uL (0-0.8); Eosinophils % (auto) 0.5 % (0.0-7.0); Hematocrit 44.2 % (36.0-46.0); Hemoglobin 14.4 g/dL (12.2-16.2); Lymphocytes # (auto) 7.9 10 ^3/uL (0.4-5.4); Lymphocytes % (auto) 46.1 % (10.0-50.0); Mean Corpuscular Hemoglobin 29.2 pg (28.0-32.0); Mean Corpuscular Hgb Conc. 32.6 g/dL (32.0-36.0); Mean Corpuscular Volume 89.4 fL (80.0-100.0); Monocytes % (auto) 6.1 % (0.0-12.0); Neutrophils # (auto) 7.9 10 ^3/uL (1.6-8.6); Neutrophils % (auto) 46.6 % (37.0-80.0); Nucleated Red Blood Cells % 0.1 %; Platelet Count (auto) 265 10^3/uL (140-450); Red Blood Cells 4.94 10^6/uL (4.0-5.20); Red Cell Distribution Width 14.4 % (11.8-14.3)
--- NOTE | 2025-03-19 12:20 | DVH ---
CHEST RADIOGRAPH Indication: sob Technique: Single frontal view of the chest was obtained COMPARISON: XY CHEST PORTABLE on DOS: 02/13/25, XY CHEST PORTABLE on DOS: 02/12/25 FINDINGS: Lines and Tubes: None Lungs: Opacification of the right lung. Pleura: Moderate to severe right pleural effusion. No pneumothorax. Cardiomediastinal contours: Unremarkable Bones: Unremarkable IMPRESSION: Moderate to severe right pleural effusion.
[2025-03-19 12:26] LABS: Chloride 99 mmol/L (98-107); Potassium 3.6 mmol/L (3.5-5.1); Sodium 142 mmol/L (136-145)
[2025-03-19 12:27] LABS: Anion Gap 8 (5-15)
[2025-03-19 12:30] LABS: Calcium 10.7 mg/dL (8.7-10.4); Carbon Dioxide 35 mmol/L (20-31)
[2025-03-19 12:32] LABS: BUN/Creatinine Ratio 14.9 (10.0-20.0); Blood Urea Nitrogen 17 mg/dL (9-23)
[2025-03-19 12:33] LABS: Glucose 135 mg/dL (74-106)
[2025-03-19 12:37] LABS: INR 1.05 (0.9-1.15); Partial Thromboplastin Time 26.8 SEC (24.5-34.5); Prothrombin Time 11.1 sec (9.3-11.8)
--- NOTE | 2025-03-19 13:09 | DVHHP2 ---
Review of Systems Allergies: Coded Allergies: NO KNOWN ALLERGIES (Unverified , 02/12/25) Exam Vital Signs Vital Signs Date Time Temp Pulse Resp B/P (MAP) Pulse Ox O2 Delivery O2 Flow Rate FiO2 03/19/25 11:45 97.8 88 18 134/61 (85) 90 97.8 Labs/Xrays Labs Test 03/19/25 12:00 Range/Units White Blood Count 17.0 H 4.4-10.8 10^3/uL Red Blood Count 4.94 4.0-5.20 10^6/uL Hemoglobin 14.4 12.2-16.2 g/dL Hematocrit 44.2 36.0-46.0 % Mean Corpuscular Volume 89.4 80.0-100.0 fL Mean Corpuscular Hemoglobin 29.2 28.0-32.0 pg Mean Corpuscular Hemoglobin Concent 32.6 32.0-36.0 g/dL Red Cell Distribution Width 14.4 H 11.8-14.3 % Platelet Count 265 140-450 10^3/uL Mean Platelet Volume 8.7 6.9-10.8 fL Neutrophils (%) (Auto) 46.6 37.0-80.0 % Lymphocytes (%) (Auto) 46.1 10.0-50.0 % Monocytes (%) (Auto) 6.1 0.0-12.0 % Eosinophils (%) (Auto) 0.5 0.0-7.0 % Basophils (%) (Auto) 0.7 0.0-2.0 % Neutrophils # (Auto) 7.9 1.6-8.6 10 ^3/uL Lymphocytes # (Auto) 7.9 H 0.4-5.4 10 ^3/uL Monocytes # (Auto) 1.0 0-1.3 10 ^3/uL Eosinophils # (Auto) 0.1 0-0.8 10 ^3/uL Basophils # (Auto) 0.1 0-0.2 10 ^3/uL Nucleated Red Blood Cells 0.1 % Prothrombin Time 11.1 9.3-11.8 sec Prothrombin Time INR 1.05 0.9-1.15 Activated Partial Thromboplast Time 26.8 24.5-34.5 SEC Sodium Level 142 136-145 mmol/L Potassium Level 3.6 3.5-5.1 mmol/L Chloride Level 99 98-107 mmol/L Carbon Dioxide Level 35 H 20-31 mmol/L Anion Gap 8 5-15 Blood Urea Nitrogen 17 9-23 mg/dL Creatinine 1.14 H 0.550-1.02 mg/dL Glomerular Filtration Rate Calc 50 >90 mL/min BUN/Creatinine Ratio 14.9 10.0-20.0 Serum Glucose 135 H 74-106 mg/dL Calcium Level 10.7 H 8.7-10.4 mg/dL Assessment/Plan Assessment/Plan see dictated note Plan discussed with: Patient Date of Service: March 19, 2025 Billing Provider: RAMIRO VARGAS MD Common Visit Codes: [id number] INP/OBS CARE (HIGH) RAMIRO VARGAS MD March 19, 2025 13:09
[2025-03-19] MEDS ORDERED: MORPHINE SULFATE INJ 2 MG/ml SYRG IV PRN ×2 (13:15)
[2025-03-19] MEDS ORDERED: NITROGLYCERIN 0.4 MG SL TAB SL PRN (13:15)
[2025-03-19] MEDS ORDERED: ONDANSETRON HCL 4 MG/2 ML VIAL IV PRN (13:15)
[2025-03-19] MEDS ORDERED: ACETAMINOPHEN 325 MG TAB PO PRN (13:15)
[2025-03-19] MEDS: cefTRIAXone 1GM/50ML D5W 50 ML IV ONE (13:34)
[2025-03-19] MEDS: IPRATROPIUM BROM 0.5 MG/2.5ML INH SOL NEB SCH (13:50)
[2025-03-19] MEDS: ALBUTEROL SULF 2.5 MG/0.5ML(0.5%) NEB SOLN NEB SCH (13:50)
--- NOTE | 2025-03-19 13:55 | DVHHP ---
ADMIT DATE: 03/19/2025 HISTORY OF PRESENT ILLNESS: The patient is a 74-year-old lady who is admitted, who has come in with complaints of increasing shortness of breath and tightness in the chest. The patient also has had lower extremity swelling that has been progressive. The patient recently was diagnosed with lung cancer with metastasis. The patient denies any significant cough. No history of fever. There is decreased p.o. intake. The patient has also had increasing oxygen requirements. PAST MEDICAL HISTORY: Significant for a recent diagnosis of lung cancer with pleural metastasis as well as numerous pulmonary nodules. The patient did have an elevated CA 125 and CA 19-9. The patient also has a history of COPD, hypertension, and chronic kidney disease. MEDICATIONS: Include Lasix, lisinopril, levothyroxine, potassium. ALLERGIES: No known drug allergies. SOCIAL HISTORY: Lives with her son, quit smoking. FAMILY HISTORY: Negative. PHYSICAL EXAMINATION: GENERAL: The patient is awake and alert. VITAL SIGNS: Temperature is 97.8. Pulse is 88 per minute. Blood pressure 134/61. SHEENT: Unremarkable with no JVD. There is pedal edema of 2-3+. LUNGS: Absent breath sounds on the right side. CARDIOVASCULAR: S1 and S2 is regular. No murmurs. ABDOMEN: Soft. There is no organomegaly. NEUROLOGIC: Nonfocal. ASSESSMENT AND PLAN: * Acute respiratory failure for which the patient will continue on oxygen. * Chronic obstructive pulmonary disease for which she will be placed on bronchodilators. * Questionable pneumonia for which she will be placed on IV antibiotics. * Right-sided pleural effusion, which would likely be malignant. The patient will have a thoracentesis and a PleurX catheter drained. * Metastatic lung cancer. * Morbid obesity. * Chronic kidney disease stage 3. MD BARRERA Douglas/SAE TID: [id number] RECEIPT: [id number]
[2025-03-19] MEDS: AZITHROMYCIN 500MG/ 250ML 250 ML IV ONE (14:10)
--- NOTE | 2025-03-19 14:25 | DVH ---
Bilateral lower extremity venous duplex Clinical History: dvt Comparison: US BILAT LOWER DVT on DOS: 02/12/25 Technique: Duplex Doppler evaluation of the deep venous systems of both lower extremities from the common femora l veins to the popliteal veins including color Doppler and spectral/pulsed waveform analysis was perf ormed. Findings: RIGHT SIDE: The common femoral vein demonstrates appropriate compressibility and waveform variability. There is compressibility/patency of the great saphenous vein at the proximal thigh. The femoral vein demonstrates appropriate compressibility and waveform variability. The deep femoral vein demonstrates appropriate compressibility and waveform variability. The popliteal vein demonstrates appropriate compressibility and waveform variability. There is normal compressibility at the tibioperoneal trunk. LEFT SIDE: The common femoral vein demonstrates appropriate compressibility and waveform variability. There is compressibility/patency of the great saphenous vein at the proximal thigh. The femoral vein demonstrates appropriate compressibility and waveform variability. The deep femoral vein demonstrates appropriate compressibility and waveform variability. The popliteal vein demonstrates appropriate compressibility and waveform variability. There is normal compressibility at the tibioperoneal trunk. Impression: No right or left femoropopliteal venous thrombosis.
[2025-03-19] MEDS: LORazepam 2MG/ML-1ML VIAL IV PRN (16:28)
--- NOTE | 2025-03-19 20:15 | DVHNC2 ---
Other Procedure Procedure Thoracentesis rt side Indication Right-sided malignant pleural effusion Anesthetic Under local anesthesia Prep under aseptic preparation Informed consent obtained: Yes Risks, benefits, and alternati: Yes Notes PROCEDURE Note A time out was performed and the chest x-ray was reviewed, the appropriate side was confirmed and marked. My hands were washed immediately prior to the procedure. I wore a surgical cap, mask with protective eyewear, sterile gown and sterile gloves throughout the procedure. The patient was prepped and draped in a sterile manner using chlorhexidine scrub after the appropriate level was percussed and confirmed by ultrasound. 1% lidocaine was used to anesthesize the skin, subcutaneous tissue, superior aspect of the rib periosteum and parietal pleura. A finder needle was then introduced over the superior aspect of the rib to locate the pleural fluid; straw colored fluid was aspirated . A syringe was used to jessica the skin at the insertion site. The Rtvh-i-Hpvvoqgc needle was then introduced through the skin incision into the pleural space using ne gative aspiration pressure and the red colormetric indicator to confirm appropriate positioning of the needle. The thoracentesis catheter was then threaded without difficulty. 1850_ ml of hemorrhagic serosanguinous_ colored fluid was removed without difficulty. The catheter was then removed. No immediate complications were noted during the procedure. A post-procedure chest x-ray is done and exclude pneumothorax at the time of this note. The fluid will be sent for studies. Estimated blood loss is less than 5 ml. Procedure done by Valente Jimenez Supervised by Dr. Vargas Date of Service: March 19, 2025 Billing Provider: RAMIRO VARGAS MD Common Visit Codes: PROCEDURE ONLY Procedure Codes: [id number] W/PUNCT VALENTE JIMENEZ RESIDENT March 19, 2025 20:15 RAMIRO VARGAS MD March 20, 2025 10:59
[2025-03-19] MEDS ORDERED: ALBU0.084 NEB (23:15)
[2025-03-20] VITALS (22 sets, daily range): BP systolic 93–126; BP diastolic 33–63; PULSE 75–91; RESP 16–26; TEMP 97.4–97.9; O2SAT 92–98
[2025-03-20] MEDS: LEVOTHYROXINE SODIUM 112 MCG TAB PO SCH (05:20)
[2025-03-20 07:10] LABS: Alanine Aminotransferase 21 U/L (7-40); Albumin 3.8 g/dL (3.2-4.8); Alkaline Phosphatase 84 U/L (46-116); Anion Gap 10 (5-15); Aspartate Aminotransferase 35 U/L (13-40); BUN/Creatinine Ratio 16.1 (10.0-20.0); Bilirubin, Total 0.7 mg/dL (0.2-1.0); Blood Urea Nitrogen 18 mg/dL (9-23); Calcium 9.9 mg/dL (8.7-10.4); Potassium 3.9 mmol/L (3.5-5.1); Sodium 141 mmol/L (136-145); Total Protein 6.4 g/dL (5.7-8.2)
[2025-03-20 07:11] LABS: Carbon Dioxide 33 mmol/L (20-31); Chloride 98 mmol/L (98-107); Glucose 117 mg/dL (74-106)
--- NOTE | 2025-03-20 07:21 | DVH ---
EXAM: XR Chest, 1 View CLINICAL INDICATION: right effusion TECHNIQUE: Frontal view of the chest. COMPARISON: XY CHEST PORTABLE on DOS: 03/19/25, XY CHEST PORTABLE on DOS: 02/13/25, XY CHEST PORTABLE on DOS: 02/12/25 FINDINGS: LUNGS AND PLEURAL SPACES: Right basilar atelectasis or pneumonia. Right pleural effusion. HEART: Cardiomegaly with mild congestion. MEDIASTINUM: Unremarkable. Normal mediastinal contour. BONES/JOINTS: Unremarkable. No acute fracture. OTHER FINDINGS: . . IMPRESSION: 1. Right basilar atelectasis or pneumonia. 2. Cardiomegaly with mild congestion. 3. Right pleural effusion.
[2025-03-20 07:38] LABS: Hematocrit 45.9 % (36.0-46.0); Hemoglobin 14.7 g/dL (12.2-16.2); Mean Corpuscular Hemoglobin 28.7 pg (28.0-32.0); Mean Corpuscular Volume 89.8 fL (80.0-100.0); Platelet Count (auto) 284 10^3/uL (140-450); Red Blood Cells 5.11 10^6/uL (4.0-5.20); Red Cell Distribution Width 14.8 % (11.8-14.3); White Blood Cell 23.1 10^3/uL (4.4-10.8)
[2025-03-20 07:41] LABS: Band Neutrophils % (manual) 0; Basophils % (manual) 0 (0.0-2.0); Blast Cells 0; Eosinophils % (manual) 0 (0-7); Metamyelocytes % 0; Myelocytes % 0; Promyelocytes % 0
[2025-03-20 08:51] LABS: Reactive Lymphocytes 10
[2025-03-20 08:52] LABS: Lymphocytes % (manual) 45 (10.0-50.0); Monocytes % (manual) 7 (0-12); Platelet Estimate Adequate
[2025-03-20] MEDS: cefTRIAXone 1GM/50ML D5W 50 ML IV SCH (08:52)
[2025-03-20] MEDS: ENOXAPARIN SOD 40 MG/0.4 ML SYRINGE SC SCH (09:06)
--- NOTE | 2025-03-20 09:52 | ECG ---
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
--- NOTE | 2025-03-20 09:59 | DVH ---
Bilateral Chest Sonogram Date: 03/20/2025 06:56 AM Clinical history: FOR PLEURX DRAIN PLACEMENT Technique: Limited sonographic evaluation of the <<bilateral> chest was performed to evaluate for p leural effusion. Finding/Impression: There is a large right pleural effusion. No left pleural effusion.
[2025-03-20] MEDS ORDERED: AZITHROMYCIN 500MG/ 250ML 250 ML IV SCH (10:00)
[2025-03-20] MEDS: fentaNYL CITRATE 100 MCG/2 ML VL ONE (10:41)
[2025-03-20] MEDS: MIDAZOLAM HCL 2MG/2ML 2ml VIAL (1mg/ml) ONE (10:42)
[2025-03-20] MEDS: LIDOCAINE 2%HCL (LOCAL ANESTH.) INJ 20ML MDV ONE (10:42)
--- NOTE | 2025-03-20 11:01 | DVHPN2 ---
Progress Note Date Seen: March 20, 2025 Medical Necessity Reason Pt with a Central, PICC or Fol: No Subjective Patient reports: No new complaints Review of Systems: HEENT:Normal, CVS:Normal, RESPIRATORY:Normal, GI:Normal, :Normal, MSK:Normal, NEURO:Normal Objective vital signs Vital Sign Date Time Temp Pulse Resp B/P (MAP) Pulse Ox O2 Delivery O2 Flow Rate FiO2 03/20/25 08:50 97.4 85 17 119/53 (75) 92 97.4 03/20/25 06:50 Oxymizer 10.0 03/20/25 06:50 72 72 Total Intake and Output 03/19/25 03/19/25 03/20/25 15:00 23:00 07:00 Intake Total 50 ml 250 ml 500 ml Output Total 1850 ml Balance 50 ml -1600 ml 500 ml medications Current Medications Medications Dose Ordered Sig/Ruby Route Start Time Stop Time Status Last Admin Dose Admin Nitroglycerin 0.4 mg Q5MINP PRN SL 03/19/25 13:15 Morphine Sulfate 2 mg Q30M PRN IV 03/19/25 13:15 Albuterol 2.5 mg Q4HWA NEB 03/19/25 14:00 03/20/25 06:47 2.5 MG Ipratropium Cowan 0.5 mg Q4HWA NEB 03/19/25 14:00 03/20/25 06:47 0.5 MG Ceftriaxone Sodium 50 ml @ 100 mls/hr DAILY@09 IV 03/20/25 09:00 03/20/25 08:52 100 MLS/HR Azithromycin 250 ml @ 125 mls/hr DAILY IV 03/20/25 10:00 Hold Morphine Sulfate 2 mg Q4HPRN PRN IV 03/19/25 13:15 Acetaminophen/ Hydrocodone Bitart 1 tab Q6HPRN PRN PO 03/19/25 13:15 Ondansetron HCl 4 mg Q6HPRN PRN IV 03/19/25 13:15 Acetaminophen 650 mg Q6HP PRN PO 03/19/25 13:15 Enoxaparin Sodium 40 mg DAILY SC 03/20/25 10:00 Levothyroxine Sodium 112 mcg QAM@0600 PO 03/20/25 06:00 03/20/25 05:20 112 MCG Lorazepam 1 mg Q8HP PRN IV 03/19/25 16:15 03/19/25 16:28 1 MG Examination: GENERAL:Normal, HEENT:Normal, NECK:Normal, LUNGS:Normal, LUNGS:Abnormal (on oxygen, decreased right side), CVS:Normal, ABDOMEN:Normal, MSK:Normal, SKIN:Normal, NEURO:Normal, :Normal laboratory and microbiology Laboratory Tests 03/20/25 04:53 Test 03/20/25 04:53 Range/Units Serum Glucose 117 H 74-106 mg/dL Problem List/Assessment/Plan Problem List/Assessment/Plan * Acute respiratory failure for which the patient will continue on oxygen. * Chronic obstructive pulmonary disease for which she will be placed on bronchodilators. * Questionable pneumonia with sepsis: IV antibiotics. * Right-sided pleural effusion, malignant. The patient will have a thoracentesis and a PleurX catheter drained. * Metastatic lung cancer. * Morbid obesity. * Chronic kidney disease stage 3. Plan discussed with: Other (rn) My Orders My Orders Orders - RAMIRO VARGAS MD Procedure Category Date Status Time Admit ADMIT 03/19/25 Transmitted 13:03 Nitroglycerin PHA 03/19/25 In Process Sublingual (Ntrostat 13:15 Morphine Sulfate PHA 03/19/25 In Process Injection 13:15 Stat Ekg For Chest JUAN J 03/19/25 In Process Pain 13:03 Notify Md Of Changes JUAN J 03/19/25 In Process From Base 13:03 Chief Wellness Officer For JUAN J 03/19/25 In Process 24 Hours 13:03 Emergency Dysrhythmia JUAN J 03/19/25 In Process Protocol 13:03 Rhythm Strips Once JUAN J 03/19/25 In Process Every Shift 13:03 Oxygen By Nasal RT 03/19/25 Transmitted Cannula 13:03 Regular Diet DIET 03/19/25 Transmitted Lunch Urinalysis LAB 03/19/25 Logged 13:03 Albuterol Medneb PHA 03/19/25 In Process (Ventolin Medneb) 14:00 Ipratropium Medneb PHA 03/19/25 In Process (Atrovent Medneb) 14:00 Ceftriaxone 1gm/50ml PHA 03/20/25 In Process D5w (Rocephin) 09:00 Azithromycin 500mg/ PHA 03/20/25 In Process 250ml (Zithromax 50 10:00 Morphine Sulfate PHA 03/19/25 In Process Injection 13:15 Hydrocodone-Acet PHA 03/19/25 In Process 5/325mg Tab ([place] 13:15 Ondansetron Hcl PHA 03/19/25 In Process (Zofran) 13:15 Acetaminophen Tablet PHA 03/19/25 In Process (Tylenol Tablet) 13:15 * Radiologist Consult CONS 03/19/25 Transmitted 13:03 Chest Portable XY 03/20/25 Resulted 06:00 Enoxaparin Sodium PHA 03/20/25 In Process (Lovenox) 10:00 Bilat Lower Dvt US 03/19/25 Resulted 13:08 Levothyroxine Tablet PHA 03/20/25 In Process (Synthroid Tablet) 06:00 Lorazepam 2mg/Ml Inj PHA 03/19/25 In Process (Ativan Inj) 16:15 Doxycycline PHA 03/20/25 Transmitted 100mg/100ml 11:00 Basic Metabolic Panel LAB 03/21/25 Verified 06:00 Complete Blood Count LAB 03/21/25 Verified 06:00 Chest Portable XY 03/21/25 Transmitted 06:00 Date of Service: March 20, 2025 Billing Provider: RAMIRO VARGAS MD Common Visit Codes: [id number] INP/OBS CARE(HIGH) RAMIRO VARGAS MD March 20, 2025 11:01
[2025-03-20] MEDS: DOXYCYCLINE 100MG/100ML 100 ML IV SCH (13:25)
--- NOTE | 2025-03-20 14:35 | DVH ---
JONAH CHAN DR., HISTORY: CHRONIC malignant pleural EFFUSION PROCEDURE: Informed consent was obtained. Patient was positioned supine on the interventional table. A limited ultrasound of the right chest was performed. The inferior anterolateral chest was prepped w ith chlorhexidine which was allowed to dry and draped in sterile fashion. Time out was performed. The entry site was infiltrated with 1% lidocaine. The pleural space at mid axillary level was accessed u sing a centesis needle sheath and a wire coiled in the fluid. An about 7-10 cm subcutaneous tract fro m the anterior chest wall was infiltrated with Lidocaine. A 15 Armenian Aspira drain was tunneled subcu taneously. The pleural entry site was serially dilated up to a 16 Armenian peel-away sheath. The drain was advanced through the sheath as it was removed. Catheter position was confirmed by return of fluid and fluoroscopic imaging. A total of 1000 mL clear serosanguineous fluid was aspirated. The catheter was sutured to the skin surface and the pleural entry site closed with 4-0 Vicryl and sealed with De rmabond. No immediate complication was identified. DAP 128 FLUOROSCOPY TIME: 0.6 minutes. SEDATION: Dr. Carlie Pryor was personally responsible for the administration of moderate sedation during the procedure performed, including the use of an independent trained observer who had no other duties during the procedure. The drugs utilized were IV fentanyl and versed (see nursing log for details). The total time of supervision by the attending physician was approximately 30 minutes. FINDINGS: Initial ultrasound image demonstrates large right pleural effusion. Post-placement images s hows the catheter extending across the pleural space with the tip in the upper pleural hemithorax. IMPRESSION: Placement of 15.5 Fr PleurX tunneled drain for recurrent pleural effusion. 1 L serosanguinous pleural fluid was aspirated.
[2025-03-21] VITALS (11 sets, daily range): BP systolic 99–133; BP diastolic 37–64; PULSE 63–87; RESP 16–21; TEMP 36.8; O2SAT 92–100
[2025-03-21] MEDS: HYDROcodone-ACET 5/325MG TAB PO PRN (02:56)
[2025-03-21 06:42] LABS: Anion Gap 6 (5-15); Calcium 9.4 mg/dL (8.7-10.4); Chloride 100 mmol/L (98-107); Potassium 3.8 mmol/L (3.5-5.1); Sodium 141 mmol/L (136-145)
[2025-03-21 06:46] LABS: Hematocrit 43.8 % (36.0-46.0); Hemoglobin 13.8 g/dL (12.2-16.2); Mean Corpuscular Hemoglobin 28.2 pg (28.0-32.0); Mean Corpuscular Hgb Conc. 31.5 g/dL (32.0-36.0); Mean Corpuscular Volume 89.4 fL (80.0-100.0); Platelet Count (auto) 274 10^3/uL (140-450); White Blood Cell 20.6 10^3/uL (4.4-10.8)
[2025-03-21 06:48] LABS: BUN/Creatinine Ratio 15.4 (10.0-20.0); Blood Urea Nitrogen 16 mg/dL (9-23)
[2025-03-21 06:50] LABS: Carbon Dioxide 35 mmol/L (20-31); Glucose 125 mg/dL (74-106)
[2025-03-21 07:02] LABS: Basophils % (manual) 0 (0.0-2.0); Blast Cells 0; Eosinophils % (manual) 0 (0-7); Metamyelocytes % 0; Myelocytes % 0; Promyelocytes % 0
--- NOTE | 2025-03-21 07:11 | DVH ---
EXAM: XR Chest, 1 View CLINICAL INDICATION: RIGHT EFFUSION TECHNIQUE: Frontal view of the chest. COMPARISON: XY CHEST PORTABLE on DOS: 03/20/25, XY CHEST PORTABLE on DOS: 03/19/25, XY CHEST PORTABLE on DOS: 02/13/25, XY CHEST PORTABLE on DOS: 02/12/25 FINDINGS: LUNGS AND PLEURAL SPACES: Bilateral pleural effusions, greater on the right. Underlying pneumonia can not be excluded. HEART: Cardiomegaly with mild congestion. MEDIASTINUM: Unremarkable. Normal mediastinal contour. BONES/JOINTS: Unremarkable. No acute fracture. OTHER FINDINGS: . . IMPRESSION: 1. Bilateral pleural effusions, greater on the right. Underlying pneumonia can not be excluded. 2. Cardiomegaly with mild congestion.
[2025-03-21 07:53] LABS: Band Neutrophils % (manual) 1; Lymphocytes % (manual) 35 (10.0-50.0); Monocytes % (manual) 3 (0-12); Reactive Lymphocytes 9
[2025-03-21 07:54] LABS: Platelet Estimate Adequate
--- NOTE | 2025-03-21 10:46 | DVHDS2 ---
Discharge Summary Date of Admission March 19, 2025 at 13:03 Date of Discharge: March 21, 2025 Labs/Diagnostic Data: Laboratory Results Test 03/21/25 05:13 03/20/25 04:53 03/19/25 12:00 White Blood Count 20.6 10^3/uL (4.4-10.8) Red Blood Count 4.90 10^6/uL (4.0-5.20) Hemoglobin 13.8 g/dL (12.2-16.2) Hematocrit 43.8 % (36.0-46.0) Mean Corpuscular Volume 89.4 fL (80.0-100.0) Mean Corpuscular Hemoglobin 28.2 pg (28.0-32.0) Mean Corpuscular Hemoglobin Concent 31.5 g/dL (32.0-36.0) Red Cell Distribution Width 14.0 % (11.8-14.3) Platelet Count 274 10^3/uL (140-450) Mean Platelet Volume 8.9 fL (6.9-10.8) Neutrophils (%) (Auto) % (37.0-80.0) Lymphocytes (%) (Auto) % (10.0-50.0) Monocytes (%) (Auto) % (0.0-12.0) Basophils (%) (Auto) % (0.0-2.0) Neutrophils # (Auto) 10 ^3/uL (1.6-8.6) Lymphocytes # (Auto) 10 ^3/uL (0.4-5.4) Monocytes # (Auto) 10 ^3/uL (0-1.3) Differential Total Cells Counted 100.0 (100) Neutrophils % (Manual) 52 (37.0-80.0) Band Neutrophils % (Manual) 1 Lymphocytes % (Manual) 35 (10.0-50.0) Monocytes % (Manual) 3 (0-12) Eosinophils % (Manual) 0 (0-7) Basophils % (Manual) 0 (0.0-2.0) Metamyelocytes % (manual) 0 Myelocytes % (Manual) 0 Promyelocytes % (Manual) 0 Blast Cells % (Manual) 0 Reactive Lymphocytes 9 Platelet Estimate Adequate Sodium Level 141 mmol/L (136-145) Potassium Level 3.8 mmol/L (3.5-5.1) Chloride Level 100 mmol/L (98-107) Carbon Dioxide Level 35 mmol/L (20-31) Anion Gap 6 (5-15) Blood Urea Nitrogen 16 mg/dL (9-23) Creatinine 1.04 mg/dL (0.550-1.02) Glomerular Filtration Rate Calc 56 mL/min (>90) BUN/Creatinine Ratio 15.4 (10.0-20.0) Serum Glucose 125 mg/dL (74-106) Calcium Level 9.4 mg/dL (8.7-10.4) Basophilic Stippling Total Bilirubin 0.7 mg/dL (0.2-1.0) Aspartate Amino Transferase (AST) 35 U/L (13-40) Alanine Aminotransferase (ALT) 21 U/L (7-40) Alkaline Phosphatase 84 U/L (46-116) Total Protein 6.4 g/dL (5.7-8.2) Albumin 3.8 g/dL (3.2-4.8) Eosinophils (%) (Auto) 0.5 % (0.0-7.0) Eosinophils # (Auto) 0.1 10 ^3/uL (0-0.8) Basophils # (Auto) 0.1 10 ^3/uL (0-0.2) Nucleated Red Blood Cells 0.1 % Prothrombin Time 11.1 sec (9.3-11.8) Prothrombin Time INR 1.05 (0.9-1.15) Activated Partial Thromboplast Time 26.8 SEC (24.5-34.5) Other Laboratory Tests 03/21/25 05:13 Brief Hx & Hospital Course: SEE DICTATED NOTE Condition at Discharge: Poor Final Diagnosis/Problems List METS LUNG CANCER Discharge Disposition: Hospice - Home Discharge Instruct/Medications Diet: Regular Activity: No Restrictions, As Tolerated Follow Up/Referral: FU WITH HOSPICE Medications: PER HOSPICE Discharge Statement: "Patient was advised to return to the ER or call 911 if any headaches, dizziness, shortness of breath, chest pain, abdominal pain, bleeding, fevers, or worsening of medical condition. Patient was counseled about treatment plan, medications, possible side effects, patientverbalized understanding. All questions were answered to the best of my ability. This discharge took greater then 30 minutes in planning, reviewing documentation, counseling the patient, and discussing with other team members." ASSESSMENT ASSESSMENT Assessment METS LUNG CANCER Date of Service: March 21, 2025 Billing Provider: RAMIRO VARGAS MD Common Visit Codes: [id number]-DUH/OBS DISCH DAY >30min RAMIRO VARGAS MD March 21, 2025 10:46
[2025-03-21] MEDS: AMITRIPTYLINE HCL 25 MG TAB PO ONE (11:23)
--- NOTE | 2025-03-21 16:09 | DVHDS ---
DATE OF DISCHARGE: 03/21/2025 HISTORY OF PRESENT ILLNESS: The patient is a 74-year-old lady with metastatic lung cancer who was admitted with history of increasing shortness of breath and weakness. HOSPITAL COURSE: The patient had significant right pleural effusion. The patient underwent initial thoracentesis and subsequent placement of a PleurX catheter by Interventional Radiology. Doppler of lower extremity was negative for DVT. The patient is now improved in her symptoms. She wishes to go home and will be discharged home on medications as per hospice. The patient will follow up with hospice. FINAL DIAGNOSES: * Acute on chronic respiratory failure. * Right-sided pleural effusion, malignant, status post drainage, status post PleurX catheter. * Likely pneumonia with sepsis. * COPD. * Metastatic lung cancer. * Morbid obesity. * CKD, stage 3. * Hypothyroidism. Time spent in discharge planning and review of plan with the patient and sister at bedside and nursing was 38 minutes. MD BARRERA Douglas/LANA TID: [id number] RECEIPT: [id number]
[2025-03-21] MEDS ORDERED: AMITRIPTYLINE HCL 25 MG TAB PO SCH (22:00)
== END 2025-03-21 14:20 | disposition hospice, home (50) | DRG 180 ==
LOC: ER 11:36 → OVERFLOW 13:03 → TELE-WESTW 21:54
PROVIDERS: ADMIT Internal Medicine; ATTEND Internal Medicine
PROC: 0W993ZZ Drainage of Right Pleural Cavity, Percutaneous Approach (ICD-10-PCS; principal; 2025-03-19)
PROC: 0W993ZZ Drainage of Right Pleural Cavity, Percutaneous Approach (ICD-10-PCS; 2025-03-20)
DX: C78.01 Secondary malignant neoplasm of right lung (principal); A41.59 Other Gram-negative sepsis; J15.69 Pneumonia due to other Gram-negative bacteria; J96.20 Acute and chronic respiratory failure, unspecified whether with hypoxia or hypercapnia; J15.9 Unspecified bacterial pneumonia; Z68.41 Body mass index [BMI] 40.0-44.9, adult; J91.0 Malignant pleural effusion; J44.0 Chronic obstructive pulmonary disease with (acute) lower respiratory infection; E66.01 Morbid (severe) obesity due to excess calories; N18.30 Chronic kidney disease, stage 3 unspecified; I12.9 Hypertensive chronic kidney disease with stage 1 through stage 4 chronic kidney disease, or unspecified chronic kidney disease; M79.89 Other specified soft tissue disorders; E03.9 Hypothyroidism, unspecified; Z90.49 Acquired absence of other specified parts of digestive tract; Z85.118 Personal history of other malignant neoplasm of bronchus and lung
CPT/HCPCS: 32555; 36415; 71045; 76604; 76942; 80048; 80053; 85007; 85025; 85027; 85610; 85730; 93005; 93970; 94640; 96365; 96367; 99152; 99291; A4300; G0378; J2250

== ENCOUNTER 2025-05-16 03:18 | Inpatient (IN) | payer OTHER, BC ==
[~2025-05-16] VITALS: Ht 157.5 cm; Wt 140.5 kg
[2025-05-16] VITALS (14 sets, daily range): BP systolic 107–134; BP diastolic 37–58; PULSE 72–127; RESP 9–27; TEMP 97.6–98.3; O2SAT 75–96
[~2025-05-16 03:18] MED LIST changes: +ALBU0.084 NEB
[2025-05-16 04:19] LABS: Chloride 99 mmol/L (98-107); Potassium 4.5 mmol/L (3.5-5.1); Sodium 143 mmol/L (136-145)
[2025-05-16 04:20] LABS: Anion Gap 6 (5-15); Calcium 9.7 mg/dL (8.7-10.4); Hematocrit 36.8 % (36.0-46.0); Hemoglobin 11.7 g/dL (12.2-16.2); Mean Corpuscular Hemoglobin 28.2 pg (28.0-32.0); Mean Corpuscular Volume 88.3 fL (80.0-100.0); Nucleated Red Blood Cells % 0.1 %
[2025-05-16 04:25] LABS: BUN/Creatinine Ratio 18.8 (10.0-20.0); Blood Urea Nitrogen 18 mg/dL (9-23)
[2025-05-16 04:28] LABS: Carbon Dioxide 38 mmol/L (20-31); Glucose 134 mg/dL (74-106)
[2025-05-16 04:28] LABS: Base Excess 5.3 mmol/L (-2.0-3.0)
--- NOTE | 2025-05-16 04:32 | ED.PDOC ---
History of Present Illness HPI Comments 74-year-old female who is brought in by ambulance for chief complaint of shortness of breath. Significant history for acute respiratory failure, metastatic lung cancer, right-sided pleural effusion s/p thoracentesis and PleurX catheter drain placement, CKD stage III, hypertension, hypothyroidism, leukocytosis, morbid obesity, and sepsis. Per EMS report, patient endorses on having shortness of breath for over the past 5 months. This morning she woke up for sudden worsening difficulty breathing. She was found with an initial O2 sat of 80% on her 6 L [place] home O2. Was placed on oxygen and breathing treatment. O2 sat of 80% still upon arrival to ED. patient denies having any chest pain, cough, congestion, fever, chills or further associated symptoms. States, also, on her PleurX catheter no longer draining following placement during her last hospital admission for respiratory failure. Chief Complaint: Shortness of Breath Time Seen by MD: 03:45 Primary Care Provider: Lynsey Reviewed Notes: Nurses Notes, Books Binder Notes, Medications, Allergies Allergies: Coded Allergies: NO KNOWN ALLERGIES (Unverified , 02/12/25) Home Meds Active Scripts Levofloxacin Hemihydrate (LEVOFLOXACIN) 750 Mg Tab, 1 TAB PO DAILY for 7 Days, #7 TAB Prov:VALENTE RENE RESIDENT 02/15/25 Reported Medications Albuterol Sulfate (Albuterol Sulfate) 0.083 % Neb, 1 VIAL NEB Q4HPRN, #50 VIAL 03/19/25 Hctz (Hydrochlorothiazide) 25 Mg Tab, 1 TAB PO DAILY for 90 Days, #90 02/13/25 Potassium Chloride (Potassium Chloride ER) 10 Meq Tab, 1 TAB PO Q2D for 40 Days, #20 TAKE 1 TABLET BY MOUTH EVERY 2 DAYS WITH FOOD. 02/13/25 Amitriptyline HCl (Amitriptyline Hydrochlori) 25 Mg Tab, 1 TAB PO DAILY for 90 Days, #90 02/13/25 Albuterol Sulfate (Albuterol Sulfate Hfa) 108 Mcg/Act Aer, 2 PUFF PO Q4-6HR PRN for SHORTNESS OF BREATH for 16 Days, #6.7 02/13/25 Furosemide (Furosemide) 20 Mg Tab, 1 TAB PO Q2D for 10 Days, #20 TAKE 1 TABLET BY MOUTH EVERY 2 DAYS. 02/13/25 Levothyroxine Sodium (Levothyroxine Sodium) 112 Mcg Tab, 1 TAB PO DAILY for 90 Days, #90 02/13/25 Lisinopril (Lisinopril) 20 Mg Tab, 1 TAB PO DAILY for 90 Days, #90 02/13/25 Information Source: Patient, Emergency Med Personnel Mode of Arrival: EMS Severity: Moderate Timing: Hours Duration: Since onset Prehospital treatment: 12 Lead EKG, Food Service Clerk, Oxygen Review of Systems: REVIEW OF SYSTEMS: No fever, no chills, or fatigue HEENT: No sore throat, no earache, no congestion, no neck pain. Cardiac: No chest pain. No palpitations. Lungs: Shortness of breath, no cough. GI: No nausea, no vomiting, no diarrhea, no constipation, no abdominal pain : No dysuria, frequency, or urgency. No hematuria. Musculoskeletal: No joint pain , no joint swelling, no extremity edema. Skin: No rash, no itching. Neuro: No headache, no dizziness, no weakness Vital Signs Vital Signs Date Time Temp Pulse Resp B/P (MAP) Pulse Ox O2 Delivery O2 Flow Rate FiO2 05/16/25 13:35 77 14 129/57 05/16/25 13:00 88 05/16/25 12:00 97.6 97.6 05/16/25 12:00 Hi-Flow Heated NC+ 50 100 100 Physical Exam General: Awake, alert and oriented. No acute distress. Skin: Skin in warm, dry and intact. Appropriate color for ethnicity. HEENT: The head is normocephalic and atraumatic. Conjunctivae are clear without exudates or hemorrhage. Sclera is non-icteric. EOM are intact. No signs of nystagmus. Eyelids are normal in appearance without swelling or lesions. Oral mucosa is pink and moist Neck: The neck is supple with normal range of motion. No JVD. Cardiac: Heart rate and rhythm are normal. No murmurs, gallops, or rubs are auscultated. Respiratory: Diminished breath sounds, bilaterally. Tachypneic. No signs of respiratory distress. Lung sounds are clear in all lobes bilaterally without rales, rhonchi, or wheezes. Patient is speaking in full sentences. Abdominal: Abdomen is soft, non-tender without distention, guarding or rigidity. Bowel sounds are present and normoactive in all four quadrants. Extremities: Mild nonpitting, bilateral lower extremity edema. Upper extremities without edema. Upper and lower extremities are atraumatic in appearance without deformity. Neurological: The patient is awake, alert and oriented to person, place, and time with normal speech. Speech is clear. There is no facial asymmetry. Psychiatric: Appropriate mood and affect. Good judgement and insight. Past Medical History PAST MEDICAL HISTORY: Cancer (Metastatic lung cancer), CKF (Stage III), Depr ession, HTN, Thyroid (Hypothyroidism) Past Medical History (Other): Acute respiratory failure Sepsis Right-sided pleural effusion status post thoracentesis and PleurX catheter drain placement Leukocytosis Morbid obesity Surgical History: Cholecystectomy Surgical History (Other): thoracentesis and PleurX catheter drain placement [employer] WORKER History: Denies all [employer] FI[employer] WORKER Hx Family History Family History: Unknown Social History Smoker: Non-Smoker Alcohol: Denies ETOH Use Drugs: Denies Drug Use Lives In: Home Was a procedure done? Was a procedure done?: No EKG EKG : Pulse Rate (adult): 82 [place]: Normal Cardiac Rhythm: NSR Block: None Hypertrophy: None ST: Normal Comments Low voltage No STEMI Differential Dx Considerations may include: Differential diagnoses considered includebut arenot limited to acute B ronchitis, Asthma, COPD, Pneumothorax, PE, CHF, Pulmonary HTN, Anemia, CO Poisoning, Methemoglobinemia, Hyperventilation, Metabolic Acidosis, Pulmonary Edema, Pneumonia, ACS, Pericardial Tamponade, Anxiety, other X-Ray, Labs, Meds, VS Vital Signs Date Time Temp Pulse Resp B/P (MAP) Pulse Ox O2 Delivery O2 Flow Rate FiO2 05/16/25 13:35 77 14 129/57 05/16/25 13:05 128 22 129/57 05/16/25 13:00 84 19 129/57 (81) 88 05/16/25 12:00 97.6 129 19 124/54 (77) 92 97.6 05/16/25 12:00 131 05/16/25 12:00 92 Hi-Flow Heated NC+ 50 100 100 05/16/25 11:00 118 19 116/54 (74) 92 05/16/25 10:00 127 22 92 Hi-Flow Heated NC+ 50 100 100 05/16/25 10:00 139 19 115/48 (70) 92 05/16/25 09:36 124 20 93 50.0 100 05/16/25 09:00 97.9 137 19 117/49 (71) 92 97.9 05/16/25 08:30 129 19 132/60 (84) 92 05/16/25 08:04 124 05/16/25 08:00 113 05/16/25 07:30 97.8 127 18 140/45 (76) 90 97.8 05/16/25 06:23 78 22 95 50.0 100 05/16/25 06:00 82 18 129/57 (81) 88 05/16/25 04:42 80 24 92 55.0 100 05/16/25 04:37 144/60 05/16/25 04:32 82 05/16/25 03:50 98.8 90 27 144/60 (88) 75 98.8 05/16/25 03:50 90 27 75 Non-Rebreather 15 N/A 05/16/25 03:23 82 05/16/25 03:20 80 Nasal Cannula* 6 44 05/16/25 03:20 98.8 65 26 152/75 (100) 80 98.8 Lab Test 05/16/25 09:58 05/16/25 04:22 05/16/25 03:49 Range/Units Urine Color Colorless Yellow Urine Clarity Clear Clear Urine pH 6.0 5.0-9.0 Urine Specific [place] 1.008 1.001-1.035 Urine Protein Negative Negative Urine Ketones Negative Negative Urine Blood Negative Negative /uL Urine Nitrite Negative Negative Urine Bilirubin Negative Negative Urine Urobilinogen Normal Negative mg/dL Urine Leukocyte Esterase Negative Negative /uL Urine RBC <1 0 - 4 /hpf Urine Microscopic WBC 4 0-5 /HPF Urine Squamous Epithelial Cells Few <5 /hpf Urine Bacteria Few H None Seen /hpf Urine Glucose Normal Normal mg/dL Blood Gas Specimen Type Arterial Blood Gas Sample Site Left brachial Blood Gas Patient Temperature 37.0 Arterial Blood Date Drawn [id number] Arterial Blood pH 7.342 L 7.350-7.450 Arterial Blood Partial Pressure CO2 61.7 *H 32.0-45.0 mmHg Arterial Blood Partial Pressure O2 67.6 L 83.0-108.0 mmHg Arterial Blood HCO3 32.7 H 21.0-28.0 mmol/L Arterial Blood Oxygen Saturation 92.4 L 94.0-98.0 % Arterial Blood Base Excess 5.3 H -2.0-3.0 mmol/L Arterial Blood Oxyhemoglobin 91.1 L 94.0-98.0 % Arterial Blood Carboxyhemoglobin 0.9 0.5-1.5 % Arterial Blood Methemoglobin 0.5 0.0-1.5 % Pete Test N/a Blood Gas Total Hemoglobin 12.60 12.0-16.0 g/dL Blood Gas Liter Flow 15.00 Blood Gas Modality Mask - nrb FiO2 % 100.0 Blood Gas Critical Value Read Back yes Blood Gas Notified Whom Blood Gas Notified Time [id number] Blood Gas Notified By jose preciado, rt White Blood Count 22.4 H 4.4-10.8 10^3/uL Red Blood Count 4.17 4.0-5.20 10^6/uL Hemoglobin 11.7 L 12.2-16.2 g/dL Hematocrit 36.8 36.0-46.0 % Mean Corpuscular Volume 88.3 80.0-100.0 fL Mean Corpuscular Hemoglobin 28.2 28.0-32.0 pg Mean Corpuscular Hemoglobin Concent 31.9 L 32.0-36.0 g/dL Red Cell Distribution Width 15.2 H 11.8-14.3 % Platelet Count 369 140-450 10^3/uL Mean Platelet Volume 7.9 6.9-10.8 fL Neutrophils (%) (Auto) 45.9 37.0-80.0 % Lymphocytes (%) (Auto) 46.7 10.0-50.0 % Monocytes (%) (Auto) 6.2 0.0-12.0 % Eosinophils (%) (Auto) 0.8 0.0-7.0 % Basophils (%) (Auto) 0.4 0.0-2.0 % Neutrophils # (Auto) 10.3 H 1.6-8.6 10 ^3/uL Lymphocytes # (Auto) 10.5 H 0.4-5.4 10 ^3/uL Monocytes # (Auto) 1.4 H 0-1.3 10 ^3/uL Eosinophils # (Auto) 0.2 0-0.8 10 ^3/uL Basophils # (Auto) 0.1 0-0.2 10 ^3/uL Nucleated Red Blood Cells 0.1 % Sodium Level 143 136-145 mmol/L Potassium Level 4.5 3.5-5.1 mmol/L Chloride Level 99 98-107 mmol/L Carbon Dioxide Level 38 H 20-31 mmol/L Anion Gap 6 5-15 Blood Urea Nitrogen 18 9-23 mg/dL Creatinine 0.96 0.550-1.02 mg/dL Glomerular Filtration Rate Calc 62 >90 mL/min BUN/Creatinine Ratio 18.8 10.0-20.0 Serum Glucose 134 H 74-106 mg/dL Calcium Level 9.7 8.7-10.4 mg/dL Troponin I High Sensitivity 9 </=34 ng/L Current Medications Medications (Trade) Dose Ordered Sig/Ruby Route Start Time Stop Time Status Last Admin Furosemide (Lasix Injection) 40 mg ONCE ONCE IV 05/16/25 04:15 05/16/25 04:16 DC 05/16/25 04:37 Albuterol (Ventolin Medneb) 2.5 mg ONCE ONCE NEB 05/16/25 04:15 05/16/25 04:16 DC 05/16/25 04:42 Amitriptyline HCl (Elavil Tablet) 25 mg ONCE ONCE PO 05/16/25 05:45 05/16/25 05:46 DC 05/16/25 05:40 Piperacillin Sod/ Tazobactam Sod 100 ml @ 100 mls/hr ONCE ONCE IV 05/16/25 06:00 05/16/25 06:59 DC 05/16/25 07:00 Vancomycin HCl 250 ml @ 250 mls/hr ONCE ONCE IV 05/16/25 06:00 05/16/25 06:59 DC 05/16/25 06:11 Morphine Sulfate 4 mg ONCE ONCE IV 05/16/25 13:00 05/16/25 13:01 DC 05/16/25 13:05 Ondansetron HCl (Zofran) 4 mg ONCE ONCE IV 05/16/25 13:00 05/16/25 13:01 DC 05/16/25 13:05 Time of 1ST Reevaluation: 04:15 Reevaluation 1ST: Unchanged Patient Education/Counseling: Treatment, Other (Need for admission) Family Education/Counseling: No Family Present SEPSIS Sepsis Screen Date sepsis recognized/suspect: May 16, 2025 Time Sepsis recognized/suspect: 319 Recent Procedure: No On Antibiotic Therapy: No Respiratory Rate >20: No Heart Rate >90: No Temp<36 C (96.8 F) or >38.3 C: No SBP <90 or MAP <65 mmHG: No New Acute Mental Status Change: No Is the patient on CPAP, BIPAP,: No Physician Orders Chest Xray 1 View (05/16/25 03:35) BIPAP (05/16/25 04:00) Abg W/ Co-Ox (05/16/25 04:02) Insert/Manage Urinary Catheter QSHIFT (05/16/25 07:12) Stat Ekg For Chest Pain (05/16/25 07:52) Urine Bacterial Culture (05/16/25 09:57) * Radiologist Consult (05/16/25 13:35) Vital Signs Date Time Temp Pulse Resp B/P (MAP) Pulse Ox O2 Delivery O2 Flow Rate FiO2 05/16/25 13:35 77 14 129/57 05/16/25 13:05 128 22 129/57 05/16/25 13:00 84 19 129/57 (81) 88 05/16/25 12:00 97.6 129 19 124/54 (77) 92 97.6 05/16/25 12:00 131 05/16/25 12:00 92 Hi-Flow Heated NC+ 50 100 100 05/16/25 11:00 118 19 116/54 (74) 92 05/16/25 10:00 127 22 92 Hi-Flow Heated NC+ 50 100 100 05/16/25 10:00 139 19 115/48 (70) 92 05/16/25 09:36 124 20 93 50.0 100 05/16/25 09:00 97.9 137 19 117/49 (71) 92 97.9 05/16/25 08:30 129 19 132/60 (84) 92 05/16/25 08:04 124 05/16/25 08:00 113 05/16/25 07:30 97.8 127 18 140/45 (76) 90 97.8 05/16/25 06:23 78 22 95 50.0 100 05/16/25 06:00 82 18 129/57 (81) 88 05/16/25 04:42 80 24 92 55.0 100 05/16/25 04:37 144/60 05/16/25 04:32 82 05/16/25 03:50 98.8 90 27 144/60 (88) 75 98.8 05/16/25 03:50 90 27 75 Non-Rebreather 15 N/A 05/16/25 03:23 82 05/16/25 03:20 80 Nasal Cannula* 6 44 05/16/25 03:20 98.8 65 26 152/75 (100) 80 98.8 Laboratory Tests Test 05/16/25 03:49 White Blood Count 22.4 10^3/uL (4.4-10.8) H Medications Medications Dose Ordered Sig/Ruby Route Start Time Stop Time Status Last Admin Dose Admin Morphine Sulfate 4 mg ONCE ONCE IV 05/16/25 13:00 05/16/25 13:01 DC 05/16/25 13:05 Ondansetron HCl 4 mg ONCE ONCE IV 05/16/25 13:00 05/16/25 13:01 DC 05/16/25 13:05 Departure 1 Departure Time of Disposition: 04:45 Impression: Primary Impression: Acute and chronic respiratory failure Additional Impression: Pleural effusion, right Disposition: ADMITTED INPATIENT Condition: Serious Comments @4:29 patient refusing bipap. Discussed with her low oxygen saturation and worse outcome, she still declines. Patient admitted to hospitalist service for further treatment, evaluation and monitoring. Extensive evaluation was performed in attempt to identify or rule out: (See differential diagnosis section) The following tests were ordered, and results were reviewed by me and discussed with patient: (See diagnostic results section) The following test were independently interpreted by me: EKG I reviewed and agreed with the following test results read by other providers: Chest x-ray I reviewed the following notes from the pt's past medical encounters: February 12, 2025 and March 19, 2025 encounters for acute hypoxic respiratory failure and lung cancer, respectively. Additional information was gathered from interviewing the following independent historians: EMS personnel Critical Care Note Critical Care Time?: Yes (35 min-critical care time only) Critical care comment: Due to a high probability of clinically significant, life threatening deterioration, the patient required my highest level of preparedness to intervene emergently and I personally spent this critical care time directly and personally managing the patient. This critical care time included obtaining a history; examining the patient; pulse oximetry; ordering and review of studies; arranging urgent treatment with development of a management plan; evaluation of patient's response to treatment; frequent reassessment; and, discussions with other providers. This critical care time was performed to assess and manage the high probability of imminent, life-threatening deterioration that could result in multi-organ failure. It was exclusive of separately billable procedures and treating other patients and teaching time. Please see my other sections and the rest of the note for further information on patient assessment and treatment. Stability Stability form required: No Heart Score Heart Score: Heart Score Response (Comments) Value History Moderate Suspicious 1 EKG Normal 0 Age >65 2 Risk Factors >3 or Hx ASHD 2 Troponin 1-2 x's Normal limit 1 Total 6 I personally scribed for LONG BOSTON MD ([email or web address]) on 05/16/25 at 04:32. Electronically submitted by Donn Rowe ([email or web address]). LONG BOSTON MD May 16, 2025 04:32
[2025-05-16] MEDS: FUROSEMIDE 40 MG/4 ML VIAL IV ONE (04:37)
[2025-05-16] MEDS: LIDOCAINE W/ EPINEPHRINE 1% 20ML VIAL ONE (04:37)
[2025-05-16] MEDS: ALBUTEROL SULF 2.5 MG/0.5ML(0.5%) NEB SOLN NEB ONE (04:42)
[2025-05-16] MEDS: AMITRIPTYLINE HCL 25 MG TAB PO ONE (05:40)
--- NOTE | 2025-05-16 05:49 | ECG ---
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
[2025-05-16] MEDS: VANCOMYCIN 1GM/200ML PM 250 ML IV ONE (06:11)
--- NOTE | 2025-05-16 06:45 | DVH ---
CHEST RADIOGRAPH Indication: Shortness of breath Technique: Single frontal view of the chest was obtained Comparison: XY CHEST PORTABLE on DOS: 03/21/25 FINDINGS: Lines and Tubes: None Lungs: Patchy bilateral airspace disease. Pleura: Small bilateral pleural effusions. No pneumothorax. Cardiomediastinal contours: Cardiomegaly. Bones: No acute osseous abnormality. IMPRESSION: 1. Patchy bilateral airspace disease. Bilateral pleural effusions. 2. Cardiomegaly.
[2025-05-16] MEDS: PIPERACILLIN-TAZOB 3.375GM 100 ML IV ONE ×2 (07:00→14:25)
[2025-05-16 10:25] LABS: Urine Protein, UAD Negative (Negative)
[2025-05-16] MEDS: MORPHINE SULFATE 4 MG/ML SYR/VIAL IV ONE ×2 (13:05→19:23)
[2025-05-16] MEDS: ONDANSETRON HCL 4 MG/2 ML VIAL IV ONE ×2 (13:05→19:23)
[2025-05-16] MEDS ORDERED: VANCOMYCIN PER PHARMACY 0 MG IV SCH (14:00)
--- NOTE | 2025-05-16 14:36 | DVH ---
Bilateral Chest Sonogram Date: 05/16/2025 01:55 PM Clinical history: Bilateral malignant pleural effusion Technique: Limited sonographic evaluation of the bilateral chest was performed to evaluate for pleur al effusion. Finding/Impression: There is a small bilateral pleural effusion visualized which is insufficient fluid for performance of thoracentesis.
--- NOTE | 2025-05-16 17:58 | DVHHPRES ---
History of Present Illness Resident Creating Document: MCKAY NGUYEN RESIDENT History of Present Illness Patient is a 74-year-old female with prior medical history of hypertension, 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 Patient states that shortness of breaths started proximally 2 weeks ago has progressively worsened to the point patient can not lay flat, sleeping, nor breathe at rest, and increased bilateral leg edema. Today, patient was unable to bite 6 L oxygen which prompted the family to seek medical care. Patient was hospitalized at this institution in February this year where she was diagnosed with possible ovarian cancer with pulmonary metastases and bilateral malignant pleural effusions and had bilateral PleurX tubes placed. Sister at bedside s tates that since discharge requests to have not been draining despite attempts by home health nurses. On evaluation in the ED, patient was in distress saturating 80% on oxygen. She was started on breathing treatments and placed on high-flow oxygen with saturation increasing to 86%. Initial labs showed we received from 2.4, hemoglobin 11.7, hematocrit 36.8, platelet count 369, ABG pH 7.342, pCO2 61.7, PO2 67.6, sodium 143, potassium 4.5, and UA with no significant finding. Chest x-ray shows patchy bilateral airspace disease and bilateral pleural effusion. Due to suspicion of clogged PleurX tubes, IR was consulted for potential drainage. Chest ultrasound was ordered which showed small bilateral pleural effusions visualized with insufficient fluid for per formance of thoracocentesis. Patient is admitted for oxygen therapy, breathing treatments, and IV therapy for possible pneumonia. Cardiovascular: HTN Pulmonary: Other (Pulmonary metastasis, bilateral malignant pleural effusions ) Heme/Onc: Cancer (Ovarian cancer with pulmonary metastasis) Endocrine: Hypothyroidism Past Surgical History: Cholecystectomy, Other (Thoracocentesis, PleurX catheter drain placement ) Family History: None Smoke: No ALCOHOL: none Drugs: None Lives: with Family Domestic Violence: Neg Review of Systems Constitutional: No: Fever, Chills, Sweats, Weakness, Malaise, Other Eyes: No: Pain, Vision change, Conjunctivae inflammation, Eyelid inflammation, Other, Redness ENT: No: Ear pain, Ear discharge, Nose pain, Nose discharge, Nose congestion, Mouth pain, Mouth swelling, Throat pain, Throat swelling, Other Respiratory: Shortness of breath Cardiovascular: No: Chest Pain, Palpitations, Orthopnea, Paroxysmal Noc. Dyspnea, Edema, Lt Headedness, Other Gastrointestinal: No: Nausea, Vomiting, Abdominal Pain, Diarrhea, Constipation, Melena, Hematochezia, Other Genitourinary: No Dysuria, No Frequency, No Incontinence, No Hematuria, No Retention, No Other Musculoskeletal: other (Bilateral leg edema) Skin: No: Rash, Lesions, Jaundice, Bruising, Other Neurological: No: Weakness, Numbness, Incoordination, Change in speech, Confusion, Seizures, Other Allergies: Coded Allergies: NO KNOWN ALLERGIES (Unverified , 02/12/25) Medications Current Medications Medications Dose Ordered Sig/Ruby Route Start Time Stop Time Status Last Admin Dose Admin Vancomycin HCl 0 ml @ 0 mls/hr UD IV 05/16/25 14:00 Piperacillin Sod/ Tazobactam Sod 100 ml @ 25 mls/hr Q8HR IV 05/16/25 22:00 Albuterol 2.5 mg Q4HR NEB 05/16/25 18:00 Ipratropium [place] 0.5 mg Q4HR NEB 05/16/25 18:00 Exam Vital Signs Vital Signs Date Time Temp Pulse Resp B/P (MAP) Pulse Ox O2 Delivery O2 Flow Rate FiO2 05/16/25 16:00 77 05/16/25 16:00 97.7 19 135/68 (90) 85 97.7 05/16/25 15:30 50.0 100 05/16/25 12:00 Hi-Flow Heated NC+ Exam General: The patient alert and oriented in person place and time. Patient following command. In acute distress HEENT: Normocephalic, atraumatic, moist mucous membrane Respiratory/pulmonary: Decreased bilateral, use of accessory muscles Cardiovascular: Normal rate, normal S1 and S2 Chest: Presence of bilateral PleurX drains Abdomen: Abdomen mildly distended, there is no pain to palpation in any of the abdominal quadrants, no palpable masses. Extremities: Edema in bilateral lower extremities Peripheral pulses 3+ radial right, 3+ radials soft. 3+ dorsalis pedis right. 3+ dorsalis pedis left Skin: Presence of fungal infection under right breast Neurological: Intact cranial nerves with no focal neurologic deficits Labs/Xrays Labs Test 05/16/25 14:30 05/16/25 09:58 05/16/25 04:22 05/16/25 03:49 Range/Units Lactic Acid Level 1.1 0.4-2.0 mmol/L Urine Color Colorless Yellow Urine Clarity Clear Clear Urine pH 6.0 5.0-9.0 Urine Specific [place] 1.008 1.001-1.035 Urine Protein Negative Negative Urine Ketones Negative Negative Urine Blood Negative Negative /uL Urine Nitrite Negative Negative Urine Bilirubin Negative Negative Urine Urobilinogen Normal Negative mg/dL Urine Leukocyte Esterase Negative Negative /uL Urine RBC <1 0 - 4 /hpf Urine Microscopic WBC 4 0-5 /HPF Urine Squamous Epithelial Cells Few <5 /hpf Urine Bacteria Few H None Seen /hpf Urine Glucose Normal Normal mg/dL Blood Gas Specimen Type Arterial Blood Gas Sample Site Left brachial Blood Gas Patient Temperature 37.0 Arterial Blood Date Drawn [id number] Arterial Blood pH 7.342 L 7.350-7.450 Arterial Blood Partial Pressure CO2 61.7 *H 32.0-45.0 mmHg Arterial Blood Partial Pressure O2 67.6 L 83.0-108.0 mmHg Arterial Blood HCO3 32.7 H 21.0-28.0 mmol/L Arterial Blood Oxygen Saturation 92.4 L 94.0-98.0 % Arterial Blood Base Excess 5.3 H -2.0-3.0 mmol/L Arterial Blood Oxyhemoglobin 91.1 L 94.0-98.0 % Arterial Blood Carboxyhemoglobin 0.9 0.5-1.5 % Arterial Blood Methemoglobin 0.5 0.0-1.5 % Pete Test N/a Blood Gas Total Hemoglobin 12.60 12.0-16.0 g/dL Blood Gas Liter Flow 15.00 Blood Gas Modality Mask - nrb FiO2 % 100.0 Blood Gas Critical Value Read Back yes Blood Gas Notified Whom Blood Gas Notified Time [id number] Blood Gas Notified By jose preciado, rt White Blood Count 22.4 H 4.4-10.8 10^3/uL Red Blood Count 4.17 4.0-5.20 10^6/uL Hemoglobin 11.7 L 12.2-16.2 g/dL Hematocrit 36.8 36.0-46.0 % Mean Corpuscular Volume 88.3 80.0-100.0 fL Mean Corpuscular Hemoglobin 28.2 28.0-32.0 pg Mean Corpuscular Hemoglobin Concent 31.9 L 32.0-36.0 g/dL Red Cell Distribution Width 15.2 H 11.8-14.3 % Platelet Count 369 140-450 10^3/uL Mean Platelet Volume 7.9 6.9-10.8 fL Neutrophils (%) (Auto) 45.9 37.0-80.0 % Lymphocytes (%) (Auto) 46.7 10.0-50.0 % Monocytes (%) (Auto) 6.2 0.0-12.0 % Eosinophils (%) (Auto) 0.8 0.0-7.0 % Basophils (%) (Auto) 0.4 0.0-2.0 % Neutrophils # (Auto) 10.3 H 1.6-8.6 10 ^3/uL Lymphocytes # (Auto) 10.5 H 0.4-5.4 10 ^3/uL Monocytes # (Auto) 1.4 H 0-1.3 10 ^3/uL Eosinophils # (Auto) 0.2 0-0.8 10 ^3/uL Basophils # (Auto) 0.1 0-0.2 10 ^3/uL Nucleated Red Blood Cells 0.1 % Sodium Level 143 136-145 mmol/L Potassium Level 4.5 3.5-5.1 mmol/L Chloride Level 99 98-107 mmol/L Carbon Dioxide Level 38 H 20-31 mmol/L Anion Gap 6 5-15 Blood Urea Nitrogen 18 9-23 mg/dL Creatinine 0.96 0.550-1.02 mg/dL Glomerular Filtration Rate Calc 62 >90 mL/min BUN/Creatinine Ratio 18.8 10.0-20.0 Serum Glucose 134 H 74-106 mg/dL Calcium Level 9.7 8.7-10.4 mg/dL Troponin I High Sensitivity 9 </=34 ng/L SEPSIS Sepsis Screen Date sepsis recognized/suspect: May 16, 2025 Time Sepsis recognized/suspect: 999 Recent Procedure: No On Antibiotic Therapy: No Respiratory Rate >20: Yes Heart Rate >90: No Temp<36 C (96.8 F) or >38.3 C: No SBP <90 or MAP <65 mmHG: No New Acute Mental Status Change: No Is the patient on CPAP, BIPAP,: No Physician Orders Urine Bacterial Culture (05/16/25 09:57) * Radiologist Consult (05/16/25 13:35) Admit (05/16/25 13:47) Code Status (05/16/25 13:48) Chest Ultrasound (05/16/25 13:50) Blood Culture (05/16/25 13:52) Vancomycin Per Pharmacy (05/16/25 14:00) Piperacillin-Tazob 3.375gm (Zosyn 3.375g (05/16/25 22:00) * Solar Pool Heating Installer Consult (05/16/25 ) Complete Blood Count (05/17/25 04:00) Creatinine (05/17/25 04:00) Vancomycin,Random (05/17/25 04:00) Albuterol Medneb (Ventolin Medneb) (05/16/25 18:00) Ipratropium Medneb (Atrovent Medneb) (05/16/25 18:00) Transfer Orders (05/16/25 16:46) Transfer Orders (05/16/25 16:54) Oxygen By High-Flow (05/16/25 17:21) Vital Signs Date Time Temp Pulse Resp B/P (MAP) Pulse Ox O2 Delivery O2 Flow Rate FiO2 05/16/25 16:00 77 05/16/25 16:00 97.7 74 19 135/68 (90) 85 97.7 05/16/25 15:30 97.6 76 24 108/52 92 50.0 100 97.6 05/16/25 15:00 75 19 130/83 (99) 84 05/16/25 14:02 76 24 92 50.0 100 05/16/25 14:00 80 19 108/52 (70) 84 05/16/25 13:35 77 14 129/57 05/16/25 13:05 128 22 129/57 05/16/25 13:00 84 19 129/57 (81) 88 05/16/25 12:00 97.6 129 19 124/54 (77) 92 97.6 05/16/25 12:00 131 05/16/25 12:00 92 Hi-Flow Heated NC+ 50 100 100 05/16/25 11:00 118 19 116/54 (74) 92 05/16/25 10:00 127 22 92 Hi-Flow Heated NC+ 50 100 100 05/16/25 10:00 139 19 115/48 (70) 92 Laboratory Tests Test 05/16/25 14:30 Lactic Acid Level 1.1 mmol/L (0.4-2.0) Medications Medications Dose Ordered Sig/Ruby Route Start Time Stop Time Status Last Admin Dose Admin Amitriptyline HCl 25 mg ONCE ONCE PO 05/16/25 05:45 05/16/25 05:46 DC 05/16/25 05:40 25 MG Morphine Sulfate 4 mg ONCE ONCE IV 05/16/25 13:00 05/16/25 13:01 DC 05/16/25 13:05 4 MG Ondansetron HCl 4 mg ONCE ONCE IV 05/16/25 13:00 05/16/25 13:01 DC 05/16/25 13:05 4 MG Piperacillin Sod/ Tazobactam Sod 100 ml @ 100 mls/hr ONCE ONCE IV 05/16/25 06:00 05/16/25 06:59 DC 05/16/25 07:00 100 MLS/HR Piperacillin Sod/ Tazobactam Sod 100 ml @ 100 mls/hr ONCE ONCE IV 05/16/25 14:00 05/16/25 14:59 DC 05/16/25 14:25 100 MLS/HR Vancomycin HCl 250 ml @ 250 mls/hr ONCE ONCE IV 05/16/25 06:00 05/16/25 06:59 DC 05/16/25 06:11 250 MLS/HR Assessment/Plan Assessment/Plan Assessment and Plan: Acute Hypoxic Respiratory Failure secondary to possible pneumonia -High flow oxygen 50 L -Albuterol 2.5 mg nebulizer q6h -Ipratropium bromide 0.5 mg nebulizer q6h Sepsis, secondary to possible pneumonia possible gram +, gram - -Vancomycin IV -Zosyn IV -Blood cultures pending -Chest xray: Patchy bilateral pleural airspace disease. Bilateral pleural effusions. Morbid obesity:BMI 47.7 -Dietary counseling CKD stage 3 -Monitor labs History of Ovarian malignancy with pulmonary mets History of bilateral malignant pleural effusion secondary to above -Bilateral PleurX tube placement Case discussed with Dr. Jha. Goals of care discussed with the patient and her sister at bedside, who state they understand and agree. Patient is DNR/DNI. Plan discussed with: Patient, Other (Sister) MCKAY NGUYEN RESIDENT May 16, 2025 17:58
[2025-05-16] MEDS: ALBUTEROL SULF 2.5 MG/0.5ML(0.5%) NEB SOLN NEB SCH (19:00)
[2025-05-16] MEDS: IPRATROPIUM BROM 0.5 MG/2.5ML INH SOL NEB SCH (19:00)
[2025-05-16] MEDS ORDERED: ONDANSETRON HCL 4 MG/2 ML VIAL IV PRN (19:30)
[2025-05-16] MEDS: PIPERACILLIN-TAZOB 3.375GM 100 ML IV SCH (22:07)
[2025-05-17] VITALS (32 sets, daily range): BP systolic 93–133; BP diastolic 39–67; PULSE 74–99; RESP 9–17; TEMP 96–97.9; O2SAT 72–100
[2025-05-17 00:33] LABS: Base Excess 13.1 mmol/L (-2.0-3.0)
[2025-05-17 07:52] LABS: Hematocrit 42.7 % (36.0-46.0); Hemoglobin 13.1 g/dL (12.2-16.2); Mean Corpuscular Hemoglobin 28.0 pg (28.0-32.0); Mean Corpuscular Volume 91.1 fL (80.0-100.0)
[2025-05-17 08:47] LABS: Total Cells Counted 100.0 (100)
[2025-05-17 08:48] LABS: Anisocytosis Slight
[2025-05-17] MEDS: MORPHINE SULFATE 4 MG/ML SYR/VIAL IV PRN ×2 (09:25→14:10)
[2025-05-17] MEDS: LORazepam 2MG/ML-1ML VIAL IV PRN ×2 (09:25→20:31)
--- NOTE | 2025-05-17 11:14 | DVHPNRES ---
Progress Note Date Seen: May 17, 2025 Resident Creating Document: VALENTE RENE RESIDENT Medical Necessity Reason Pt with a Central, PICC or Fol: Yes Subjective Review of Systems Patient is a 74-year-old female with prior medical history of hypertension, 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 Patient states that shortness of breaths started proximally 2 weeks ago has progressively worsened to the point patient can not lay flat, sleeping, nor breathe at rest, and increased bilateral leg edema. Today, patient was unable to bite 6 L oxygen which prompted the family to seek medical care. Patient was hospitalized at this institution in February this year where she was diagnosed with possible ovarian cancer with pulmonary metastases and bilateral malignant pleural effusions and had bilateral PleurX tubes placed. Sister at bedside states that since discharge requests to have not been draining despite attempts by home health nurses. On evaluation in the ED, patient was in distress saturating 80% on oxygen. She was started on breathing treatments and placed on high-flow oxygen with saturation increasing to 86%. Chest x-ray shows patchy bilateral airspace disease and bilateral pleural effusion. Due to suspicion of clogged PleurX tubes, IR was consulted for potential drainage. Chest ultrasound was ordered which showed small bilateral pleural effusions visualized with insufficient fluid for performance of thoracocentesis. Patient is seen and examined on the bedside. She is on BiPAP with FiO2 100%. Recent ABG revealed pH 7.18, pCO2 more than 100, oxygen saturation 92.8. The patient's code status is DNR/DNI and comfort measures only. Spoke with the family, they wanted comfort care for the patient not doing anything the can prolonged the patient's life and it is patient's wishes as well. The patient is on BiPAP because family wanted to wait for other family members to see the patient. RT consulted to remove the BiPAP and putting the patient on nasal cannula. The patient is on IV morphine 4 mg q.2 hours, IV Ativan 1 mg q.2h for comfort care to relieve the pain and anxiety. Family at bedside. Objective vital signs Vital Sign Date Time Temp Pulse Resp B/P (MAP) Pulse Ox O2 Delivery O2 Flow Rate FiO2 05/17/25 10:30 86 127/46 93 Facial BiPAP Mask 100 05/17/25 10:00 11 05/17/25 10:00 15 05/17/25 04:00 97.9 97.9 Total Intake and Output 05/16/25 05/16/25 05/17/25 15:00 23:00 07:00 Intake Total 1250 ml 100 ml 125 ml Output Total 500 ml 1850 ml Balance 750 ml 100 ml -1725 ml medications Current Medications Medications Dose Ordered Sig/Ruby Route Start Time Stop Time Status Last Admin Dose Admin Vancomycin HCl 0 ml @ 0 mls/hr UD IV 05/16/25 14:00 Piperacillin Sod/ Tazobactam Sod 100 ml @ 25 mls/hr Q8HR IV 05/16/25 22:00 05/17/25 05:35 25 MLS/HR Albuterol 2.5 mg Q4HR NEB 05/16/25 18:00 05/17/25 10:32 2.5 MG Ipratropium [place] 0.5 mg Q4HR NEB 05/16/25 18:00 05/17/25 10:33 0.5 MG Morphine Sulfate 4 mg Q6HPRN PRN IV 05/16/25 19:30 05/17/25 09:25 4 MG Ondansetron HCl 4 mg Q6HPRN PRN IV 05/16/25 19:30 Lorazepam 1 mg Q2HP PRN IV 05/17/25 09:15 05/17/25 09:25 1 MG Examination Physical examination: General Appearance: Alert, Oriented X0, resp distress and on bipap HEENT: Atraumatic, PERRLA, EOMI, Mucous membrane moist/pink Respiratory: Bilateral decreased breath sound, wheezing and crackles. Cardiovascular: Regular rate, Normal S1, Normal S2, No murmurs, no chest wall tenderness Abdominal: Normal bowel sounds, Soft, No tenderness, No hepatospenomegaly, No masses Extremities: No clubbing, No cyanosis, No edema, Normal pulses, No tenderness/swelling Skin: No rashes, No breakdown, No significant lesion Neuro: Strength at 5/5 X4 ext, Normal tone. Psych/Mental Status: Not able to assess the mental status laboratory and microbiology Laboratory Tests 05/17/25 07:21 Test 05/17/25 10:26 Range/Units Serum Glucose Pending Microbiology Date/Time Source Procedure Growth Status 05/16/25 09:58 Urine - [place] Urine Culture - Preliminary Resulted Labs and/or images reviewed: Labs reviewed by me, Image(s) reviewed by me Problem List/Assessment/Plan Problem List/Assessment/Plan Assessment and Plan: Acute metabolic/toxic encephalopathy Acute Hypoxic/ hypercarbic Respiratory Failure secondary to possible pneumonia Severe respiratory acidosis due to above History of Ovarian malignancy with pulmonary mets History of bilateral malignant pleural effusion secondary to above S/P Bilateral PleurX tube placement - Patient will be on comfort care - IV morphine 4 mg q.2h p.r.n., IV Ativan 1 mg q.2h p.r.n. Sepsis, secondary to possible pneumonia possible gram +, gram - -Vancomycin IV -Zosyn IV -Blood cultures pending -Chest xray: Patchy bilateral pleural airspace disease. Bilateral pleural effusions. Morbid obesity:BMI 47.7 DANIEL on CKD stage 3 likely secondary to prerenal due to sepsis/VMN Hyperkalemia likely due to CKD -Monitor labs Goals of care discussed with the family for 22 minutes. Code status: DNR/DNI. Family wanted comfort care for the patient. Discontinued BiPAP and putting the patient on nasal cannula. Patient is on IV morphine 4 mg q.2h p.r.n., IV Ativan 1 mg q.2h p.r.n. for comfort measures to reduce pain and anxiety. 66 minutes of critical care time. Downgraded to Med Surg as comfort care. Case discussed with Dr. Colon Plan discussed with: Son, Other (Sister, RN) My Orders My Orders Orders - VALENTE RENE RESIDENT Procedure Category Date Status Time * Radiologist Consult CONS 05/16/25 Transmitted 13:35 Admit ADMIT 05/16/25 Transmitted 13:47 Code Status CODE 05/16/25 Transmitted 13:48 Chest Ultrasound US 05/16/25 Resulted 13:50 Blood Culture JACKIE 05/16/25 In Process 13:52 Vancomycin Per PHA 05/16/25 In Process Pharmacy 14:00 Piperacillin-Tazob PHA 05/16/25 In Process 3.375gm (Zosyn 3.375g 22:00 * Loom Overhauler CONS 05/16/25 Transmitted Consult Albuterol Medneb PHA 05/16/25 In Process (Ventolin Medneb) 18:00 Ipratropium Medneb PHA 05/16/25 In Process (Atrovent Medneb) 18:00 Transfer Orders XFER 05/16/25 Transmitted 16:46 Transfer Orders XFER 05/16/25 Transmitted 16:54 Morphine Sulfate PHA 05/16/25 In Process Injection 19:30 Ondansetron Hcl PHA 05/16/25 In Process (Zofran) 19:30 Lorazepam 2mg/Ml Inj PHA 05/17/25 In Process (Ativan Inj) 09:15 Critical Care Time (mins): 66 Addendum Addendum Addendum I was physically present for the tellez portions of the service provided to patient by THE RESIDENT. I have reviewed the documentation, discussed the case with resident and agree with the resident's documentation except as noted. Also the patient's clinical case was discussed with the patient's nurse. This medical document was created using an electronic medical record system with computerized dictation system. Although this document has been carefully reviewed, there might still be some phonetic and typographical errors. These areas are purely typographical due to imperfections of the software programs, and do not reflect any compromise in the patient's medical care. Late signature. Date of Service: May 17, 2025 Billing Provider: GILDA COLON MD Common Visit Codes: 42037-JFYFLZHR CARE 30-74 MIN (66 minutes) Secondary Visit Codes: 32026-CVXRPFMC CARE PLAN 30 MINUTES (22 minutes) VALENTE RENE RESIDENT May 17, 2025 11:14 GILDA COLON MD May 18, 2025 04:38
[2025-05-17 11:21] LABS: Anion Gap 6 (5-15)
[2025-05-17 11:29] LABS: BUN/Creatinine Ratio 16.9 (10.0-20.0)
[2025-05-17 11:31] LABS: Blood Urea Nitrogen 24 mg/dL (9-23); Calcium 9.9 mg/dL (8.7-10.4); Carbon Dioxide 36 mmol/L (20-31); Chloride 102 mmol/L (98-107); Glucose 94 mg/dL (74-106); Potassium 5.3 mmol/L (3.5-5.1); Sodium 144 mmol/L (136-145)
--- NOTE | 2025-05-17 12:06 | ECG ---
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
[2025-05-17] MEDS: VANCOMYCIN 500mg/100mL 100 ML IV ONE (17:11)
[2025-05-17] MEDS ORDERED: MORPHINE SULFATE 4 MG/ML SYR/VIAL IV PRN (18:45)
[2025-05-17] MEDS ORDERED: MORPHINE SULFATE INJ 2 MG/ml SYRG IV PRN (21:15)
--- NOTE | 2025-05-18 06:30 | DVHDS2 ---
Summary Date of Admission May 16, 2025 at 13:47 Date and Time of Expiration: May 17, 2025 21:58 Reason for Admission: Shortness of breath with altered mental status Wounds: No wound was present Labs/Diagnostic Data: Laboratory Results Test 05/17/25 10:26 05/17/25 07:21 05/17/25 03:50 05/17/25 00:26 Sodium Level 144 mmol/L (136-145) Potassium Level 5.3 mmol/L (3.5-5.1) Chloride Level 102 mmol/L (98-107) Carbon Dioxide Level 36 mmol/L (20-31) Anion Gap 6 (5-15) Blood Urea Nitrogen 24 mg/dL (9-23) Creatinine 1.42 mg/dL (0.550-1.02) Glomerular Filtration Rate Calc 39 mL/min (>90) BUN/Creatinine Ratio 16.9 (10.0-20.0) Serum Glucose 94 mg/dL (74-106) Calcium Level 9.9 mg/dL (8.7-10.4) White Blood Count 25.7 10^3/uL (4.4-10.8) Red Blood Count 4.69 10^6/uL (4.0-5.20) Hemoglobin 13.1 g/dL (12.2-16.2) Hematocrit 42.7 % (36.0-46.0) Mean Corpuscular Volume 91.1 fL (80.0-100.0) Mean Corpuscular Hemoglobin 28.0 pg (28.0-32.0) Mean Corpuscular Hemoglobin Concent 30.8 g/dL (32.0-36.0) Red Cell Distribution Width 15.8 % (11.8-14.3) Platelet Count 373 10^3/uL (140-450) Mean Platelet Volume 7.7 fL (6.9-10.8) Neutrophils (%) (Auto) % (37.0-80.0) Lymphocytes (%) (Auto) % (10.0-50.0) Monocytes (%) (Auto) % (0.0-12.0) Basophils (%) (Auto) % (0.0-2.0) Neutrophils # (Auto) 10 ^3/uL (1.6-8.6) Lymphocytes # (Auto) 10 ^3/uL (0.4-5.4) Monocytes # (Auto) 10 ^3/uL (0-1.3) Differential Total Cells Counted 100.0 (100) Neutrophils % (Manual) 44 (37.0-80.0) Band Neutrophils % (Manual) 1 Lymphocytes % (Manual) 48 (10.0-50.0) Monocytes % (Manual) 4 (0-12) Eosinophils % (Manual) 1 (0-7) Basophils % (Manual) 0 (0.0-2.0) Metamyelocytes % (manual) 0 Myelocytes % (Manual) 0 Promyelocytes % (Manual) 0 Blast Cells % (Manual) 0 Reactive Lymphocytes 2 Platelet Estimate Adequate Hypochromasia (manual) Slight Anisocytosis (manual) Slight Random Vancomycin Level 5.8 ug/mL (5-10) Blood Gas Specimen Type Arterial Blood Gas Sample Site Left brachial Blood Gas Patient Temperature 37.0 Arterial Blood Date Drawn [id number] Arterial Blood pH 7.140 (7.350-7.450) Arterial Blood Partial Pressure CO2 143.3 mmHg (32.0-45.0) Arterial Blood Partial Pressure O2 79.7 mmHg (83.0-108.0) Arterial Blood HCO3 47.7 mmol/L (21.0-28.0) Arterial Blood Oxygen Saturation 92.8 % (94.0-98.0) Arterial Blood Base Excess 13.1 mmol/L (-2.0-3.0) Arterial Blood Oxyhemoglobin 91.3 % (94.0-98.0) Arterial Blood Carboxyhemoglobin 0.9 % (0.5-1.5) Arterial Blood Methemoglobin 0.7 % (0.0-1.5) Pete Test N/a Blood Gas Total Hemoglobin 13.10 g/dL (12.0-16.0) Blood Gas Set Respiration Rate 12.0 Blood Gas Liter Flow 0.00 Blood Gas Modality Mask - bipap FiO2 % 100.0 Blood Gas EPAP 5 Blood Gas IPAP 12 Blood Gas Critical Value Read Back yes Blood Gas Notified Whom yoli Parker md Blood Gas Notified Time [id number] Blood Gas Notified By jose preciado, rt Test 05/16/25 14:30 05/16/25 09:58 05/16/25 03:49 Lactic Acid Level 1.1 mmol/L (0.4-2.0) Urine Color Colorless (Yellow) Urine Clarity Clear (Clear) Urine pH 6.0 (5.0-9.0) Urine Specific [place] 1.008 (1.001-1.035) Urine Protein Negative (Negative) Urine Ketones Negative (Negative) Urine Blood Negative /uL (Negative) Urine Nitrite Negative (Negative) Urine Bilirubin Negative (Negative) Urine Urobilinogen Normal mg/dL (Negative) Urine Leukocyte Esterase Negative /uL (Negative) Urine RBC <1 /hpf (0 - 4) Urine Microscopic WBC 4 /HPF (0-5) Urine Squamous Epithelial Cells Few /hpf (<5) Urine Bacteria Few /hpf (None Seen) Urine Glucose Normal mg/dL (Normal) Eosinophils (%) (Auto) 0.8 % (0.0-7.0) Eosinophils # (Auto) 0.2 10 ^3/uL (0-0.8) Basophils # (Auto) 0.1 10 ^3/uL (0-0.2) Nucleated Red Blood Cells 0.1 % Troponin I High Sensitivity 9 ng/L (</=34) Other Laboratory Tests 05/17/25 10:26 05/17/25 07:21 Brief Hx & Hospital Course: Patient is a 74-year-old female with prior medical history of hypertension, 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 Patient states that shortness of breaths started proximally 2 weeks ago has progressively worsened to the point patient can not lay flat, sleeping, nor breathe at rest, and increased bilateral leg edema. Today, patient was unable to bite 6 L oxygen which prompted the family to seek medical care. Patient was hospitalized at this institution in February this year where she was diagnosed with possible ovarian cancer with pulmonary metastases and bilateral malignant pleural effusions and had bilateral PleurX tubes placed. Sister at bedside states that since discharge requests to have not been draining despite attempts by home health nurses. On evaluation in the ED, patient was in distress saturating 80% on oxygen. She was started on breathing treatments and placed on high-flow oxygen with saturation increasing to 86%. Chest x-ray shows patchy bilateral airspace disease and bilateral pleural effusion. Due to suspicion of clogged PleurX tubes, IR was consulted for potential drainage. Chest ultrasound was ordered which showed small bilateral pleural effusions visualized with insufficient fluid for performance of thoracocentesis. Hospital course: Initially patient was presented with acute hypoxic/hypercarbic respiratory failure with sepsis likely due to pneumonia. History of ovarian cancer with lung metastasis and bilateral malignant pleural effusion, status post bilateral PleurX tube placement and patient was on hospice. Chest ultrasound demonstrated there was no drainable fluid for thoracentesis. Was initially put on high-flow oxygen and later the patient was on BiPAP with FiO2 100%. ABG revealed pH 7.18, pCO2 more than 100, oxygen saturation 92.8. The patient's code status is DNR/DNI and comfort measures only. Spoke with the family, they wanted comfort care for the patient, not doing anything the can prolonged the patient's life and it is patient's wishes as well. The patient is on BiPAP because family wanted to wait for other family members to see the patient. 7:00 p.m. family requested to remove BiPAP, RT was paged and they removed the BiPAP and put the patient on nasal cannula 6 L. The patient was on IV morphine 4 mg q.2 hours, IV Ativan 1 mg q.2h for comfort care to relieve the pain and anxiety. Family was at bedside. Patient at 21:58 on 0 05/17/25. Cause of : # Acute cardiopulmonary arrest # Acute hypoxic/hypercarbic respiratory failure # Sepsis Diagnosis: # Acute metabolic/toxic encephalopathy # Acute Hypoxic/ hypercarbic Respiratory Failure secondary to possible pneumonia # Severe respiratory acidosis due to above # History of Ovarian malignancy with pulmonary mets # History of bilateral malignant pleural effusion secondary to above # S/P Bilateral PleurX tube placement # Sepsis, secondary to possible pneumonia possible gram +, gram - # Morbid obesity:BMI 47.7 # DANIEL on CKD stage 3 likely secondary to prerenal due to sepsis/VMN # Hyperkalemia likely due to CKD Discharge planning spent time 41 minutes. note documented separately earlier; both corner office and family were informed; family was at bedside with the patient diet. Case discussed with Dr. Colon Consults/Reason for consult No consultation was done Operations or Procedures CHEST RADIOGRAPH Indication: Shortness of breath Technique: Single frontal view of the chest was obtained Comparison: XY CHEST PORTABLE on DOS: 03/21/25 FINDINGS: Lines and Tubes: None Lungs: Patchy bilateral airspace disease. Pleura: Small bilateral pleural effusions. No pneumothorax. Cardiomediastinal contours: Cardiomegaly. Bones: No acute osseous abnormality. IMPRESSION: 1. Patchy bilateral airspace disease. Bilateral pleural effusions. 2. Cardiomegaly. Bilateral Chest Sonogram Date: 05/16/2025 01:55 PM Clinical history: Bilateral malignant pleural effusion Technique: Limited sonographic evaluation of the bilateral chest was performed to evaluate for pleural effusion. Finding/Impression: There is a small bilateral pleural effusion visualized which is insufficient fluid for performance of thoracentesis. Final Diagnosis/Problems List # Acute metabolic/toxic encephalopathy # Acute Hypoxic/ hypercarbic Respiratory Failure secondary to possible pneumonia # Severe respiratory acidosis due to above # History of Ovarian malignancy with pulmonary mets # History of bilateral malignant pleural effusion secondary to above # S/P Bilateral PleurX tube placement # Sepsis, secondary to possible pneumonia possible gram +, gram - # Morbid obesity:BMI 47.7 # DANIEL on CKD stage 3 likely secondary to prerenal due to sepsis/VMN # Hyperkalemia likely due to CKD Discharge Disposition: at Hospital Addendum Addendum Addendum I was physically present for the tellez portions of the service provided to patient by THE RESIDENT. I have reviewed the documentation, discussed the case with resident and agree with the resident's documentation except as noted. Also the patient's clinical case was discussed with the patient's nurse. This medical document was created using an electronic medical record system with computerized dictation system. Although this document has been carefully reviewed, there might still be some phonetic and typographical errors. These areas are purely typographical due to imperfections of the software programs, and do not reflect any compromise in the patient's medical care. Late signature. Date of Service: May 17, 2025 Billing Provider: GILDA COLON MD Common Visit Codes: 86977-VJT/OBS DISCH DAY >30min VALENTE RENE RESIDENT May 18, 2025 06:30 GILDA COLON MD May 18, 2025 11:45
--- NOTE | 2025-05-18 06:51 | PRN ---
Misceleneous Note Note Note Date of service- 05/17/2025 Patient is a 74-year-old female with prior medical history of hypertension, history of bilateral malignant pleural effusion status post PleurX tube placem ent, history of ovarian malignancy with pulmonary Mets currently on home hospice, who presented to the ED with chief complaint of shortness of breath. code status is DNR/DNI and comfort measures only Notified by the nurse that the patient was in asystole and unresponsive. Detailed bedside examination revealed: -The patient was unresponsive to verbal or painful stimuli. -Spontaneous Heart and lung sounds are absent. -No spontaneous cardiac or respiratory activity noted over 5 minutes. -No corneal pupillary reflex present while checked twice. -Pupils are fixed and dilated over the examination period. The patient was pronounced clinically at 2158 of date 05/17/2025 by Melba Helms MD, resident. Discussed with Dr. Alfaro. Patient's family and patient's nurse were updated by the healthcare team. Appropriate and empathic condolences were provided to the patient's dear ones. Cause of cardiorespiratory arrest. MELBA HELMS RESIDENT May 18, 2025 06:51
== END 2025-05-17 21:58 | DRG 871 ==
LOC: ER 03:18 → EDBD 03:18 → OVERFLOW 13:47 → CENTRAL 05-17 18:08 → UNDODEPER 05-18 00:40
PROVIDERS: ADMIT Internal Medicine; ATTEND Internal Medicine
PROC: 5A09357 Assistance with Respiratory Ventilation, Less than 24 Consecutive Hours, Continuous Positive Airway Pressure (ICD-10-PCS; principal; 2025-05-16)
PROC: 5A0935A Assistance with Respiratory Ventilation, Less than 24 Consecutive Hours, High Flow/Velocity Cannula (ICD-10-PCS; 2025-05-16)
PROC: 5A09357 Assistance with Respiratory Ventilation, Less than 24 Consecutive Hours, Continuous Positive Airway Pressure (ICD-10-PCS; 2025-05-17)
DX: A41.50 Gram-negative sepsis, unspecified (principal); G92.8 Other toxic encephalopathy; J15.69 Pneumonia due to other Gram-negative bacteria; J15.9 Unspecified bacterial pneumonia; J96.21 Acute and chronic respiratory failure with hypoxia; J96.22 Acute and chronic respiratory failure with hypercapnia; N17.0 Acute kidney failure with tubular necrosis; Z68.42 Body mass index [BMI] 45.0-49.9, adult; J90 Pleural effusion, not elsewhere classified; Z66 Do not resuscitate; E66.01 Morbid (severe) obesity due to excess calories; N18.30 Chronic kidney disease, stage 3 unspecified; I46.9 Cardiac arrest, cause unspecified; F32.A Depression, unspecified; I12.9 Hypertensive chronic kidney disease with stage 1 through stage 4 chronic kidney disease, or unspecified chronic kidney disease; E03.9 Hypothyroidism, unspecified; E87.5 Hyperkalemia; F41.9 Anxiety disorder, unspecified; Z51.5 Encounter for palliative care; Z85.43 Personal history of malignant neoplasm of ovary
CPT/HCPCS: 36415; 36600; 71045; 76604; 80048; 80202; 81001; 82805; 83605; 84484; 85007; 85025; 85027; 87040; 87086; 93005; 94640; 94660; 96365; 96375; 99291; G0378; J2405; J2543